=== PATIENT | male | born 1965 | race Caucasian/White ===

== ENCOUNTER 2016-10-06 03:20 | Inpatient (IN) | payer SELFPAY ==
[~2016-10-06] VITALS: Ht 193 cm; Wt 132.3 kg
[2016-10-06] VITALS (10 sets, daily range): BP systolic 138–160; BP diastolic 72–95; PULSE 74–88; RESP 16–20; TEMP 96.2–98.2; O2SAT 96–99
[~2016-10-06 03:20] MED LIST: ASPI325T PO; DICL75 PO; FLUO20TA20 PO; GLUC10TA3 PO; LISI-360 PO; LOPI600T PO; METF500 PO; NAPR250T57 PO; SUMA50TA2 PO; ULTR50TA PO
[2016-10-06] MEDS ORDERED: SODIUM CHLORIDE 0.9% FLUSH 10 ML FLUSH IVF PRN ×2 (03:45→05:15)
[2016-10-06] MEDS ORDERED: SODIUM CHLOR 0.9% 1000 ML INJ 1,000 ML IV SCH (03:45)
[2016-10-06 04:09] LABS: AUTOMATED NEUTROPHIL # 12.9 TH/MM3 (1.8-7.7); BASOPHIL % 0.3 % (0.0-2.0); EOSINOPHIL # 0.2 TH/MM3 (0-0.4); EOSINOPHIL % 1.4 % (0.0-4.0); HEMATOCRIT 36.5 % (39.0-51.0); HEMO FLAGS DIFF FINAL; LYMPH % 9.2 % (9.0-44.0); LYMPHOCYTE # 1.4 TH/MM3 (1.0-4.8); MEAN CELL VOLUME 86.3 FL (80.0-100.0); MEAN CORPUSCULAR HEMOGLOBIN 29.3 PG (27.0-34.0); NEUT % 83.1 % (16.0-70.0); PLATELET COUNT 420 TH/MM3 (150-450); RED BLOOD COUNT 4.24 MIL/MM3 (4.50-5.90); RED CELL DISTRIBUTION WIDTH 12.8 % (11.6-17.2); WHITE BLOOD COUNT 15.4 TH/MM3 (4.0-11.0)
[2016-10-06 04:20] LABS: CHLORIDE 105 MEQ/L (98-107); POTASSIUM 4.7 MEQ/L (3.5-5.1); SODIUM (NA) 138 MEQ/L (136-145)
[2016-10-06 04:23] LABS: ANION GAP 15 MEQ/L (5-15); BICARBONATE 18.4 MEQ/L (21.0-32.0); BLOOD UREA NITROGEN 81 MG/DL (7-18)
[2016-10-06 04:26] LABS: ALT (GPT) 30 U/L (12-78); AST (GOT) 20 U/L (15-37)
[2016-10-06 04:27] LABS: GLOMERULAR FILTRATION RATE 8 ML/MIN (>89)
[2016-10-06 04:28] LABS: TOTAL BILIRUBIN ADULT 0.7 MG/DL (0.2-1.0)
[2016-10-06 04:29] LABS: ALKALINE PHOSPHATASE 64 U/L (45-117)
[2016-10-06] MEDS ORDERED: ONDANSETRON HCL 4 MG/2 ML VIAL IV PUSH ONE (04:30)
[2016-10-06 04:37] LABS: BETA-HYDROXYBUTYRATE 0.11 MMOL/L (0.00-0.39)
[2016-10-06 04:40] LABS: GLUCOSE,URINE NEG (NEG); KETONE, URINE NEG (NEG); NITRITE,URINE NEG (NEG); PH, URINE 5.5 (5.0-8.5)
[2016-10-06 04:44] LABS: BLOOD, URINE MOD (NEG); URINE COLOR YELLOW (YELLW/STRAW)
[2016-10-06 04:45] LABS: COMMENT (UR) CULT NOT INDICATED; CULTURE IF INDICATED CULT NOT INDICATED; RBC, URINE 15-19 /hpf (0-3); SQUAMOUS EPITHELIAL CELL URINE 0-5 /hpf (0-5)
--- NOTE | 2016-10-06 05:24 | PD ---
HPI Chief Complaint: Diabetic Time Seen by Provider: 03:39 Travel History International Travel<30 days: No Contact w/Intl Traveler<30days: No Traveled to known affect area: No History of Present Illness HPI 51-year-old male presents to the emergency department by private transportation for complaint of episodes of hypoglycemia. Patient is diabetic and is prescribed glipizide. Patient states on Friday started having symptoms consistent with prior kidney stone history with nausea and vomiting. Patient states he has taken poor oral intake and poor dietary intake since Friday due to multiple episodes of vomiting. Patient states vomiting subsided on Friday so resume taking his medications on Friday. Patient states he took his first dose of glipizide on Friday and throughout the day noticed that he was having episodes of symptoms consistent with hypoglycemia and tried to force feed himself at the day but this evening just prior to arrival to the emergency department after eating a full meal at 1 AM noted that his blood sugar was again dropping with jitteriness and diaphoresis about himself to the emergency room for evaluation. No other concerns or complaints. Patient denies fever chills chest pain shortness of breath abdominal pain diarrhea dysuria joint pain swelling. Patient's nausea and vomiting have subsided. Patient's flank pain and urinary symptoms have resolved. Overall discomfort 5/10 in intensity. PFSH Past Medical History Narrative Medical Anxiety arthritis diabetes hypertension kidney stones states 2 renal failure chronic neck and back injury with right sided weakness chronically appendectomy tonsillectomy Hx Anticoagulant Therapy: Yes (ASPIRIN) Anxiety: Yes Cardiovascular Problems: Yes (HTN) Diabetes: Yes Patient Takes Glucophage: No Hypertension: Yes Medical other: Yes (r side weakness) Musculoskeletal: Yes (Neck sx, R arm carpal tunnel) Renal Failure: Yes (stage2) Tetanus Vaccination: Unknown Influenza Vaccination: Yes Past Surgical History Appendectomy: Yes Tonsillectomy: Yes Other Surgery: Yes (neck, shoulder) Social History Alcohol Use: No Tobacco Use: Yes (1 PPD) Substance Use: No Allergies-Medications (Allergen,Severity, Reaction): Coded Allergies: No Known Allergies (Unverified , 10/06/16) Reported Meds & Prescriptions Reported Meds & Active Scripts Active Reported [cholesterol pill] Sumatriptan (Sumatriptan Succinate) 50 Mg Tab 50 Mg PO ONCE PRN If a satisfactory response has not been obtained at 2 hours, a second dose may be administered Tramadol (Tramadol HCl) 50 Mg Tab 50 Mg PO Q6H PRN Lisinopril 10 Mg Tab 10 Mg PO DAILY Glipizide 10 Mg Tab 10 Mg PO BIDAC Take 30 minutes before a meal Fluoxetine (Fluoxetine HCl) 20 Mg Cap 40 Mg PO DAILY Narrative Medication states no longer taking metformin Review of Systems Except as stated in HPI: all other systems reviewed are Neg General / Constitutional: No: Fever, Chills HENT: No: Congestion Cardiovascular: No: Chest Pain or Discomfort Gastrointestinal: Positive: Nausea, Vomiting (Friday through Friday), Abdominal Pain (Friday through Friday), Loss of Appetite (Friday through Friday) Genitourinary: Positive: Flank Pain (Friday through Friday), No: Dysuria Musculoskeletal: No: Myalgias, Arthralgias Skin: No Rash Neurologic: No: Weakness, Dizziness Psychiatric: No: Anxiety Endocrine: No: Heat Intolerance Hematologic/Lymphatic: No: Easy Bruising Physical Exam Narrative GENERAL: Well-developed well-nourished obese male in no acute distress or respiratory distress SKIN: Warm and dry. HEAD: Normocephalic. EYES: No scleral icterus. No injection or drainage. NECK: Supple, trachea midline. No JVD or lymphadenopathy. CARDIOVASCULAR: Regular rate and rhythm without murmurs, gallops, or rubs. RESPIRATORY: Breath sounds equal bilaterally. No accessory muscle use. GASTROINTESTINAL: Abdomen soft, non-tender, nondistended. MUSCULOSKELETAL: No cyanosis, or edema. BACK: Nontender without obvious deformity. No CVA tenderness. Data Data Last Documented VS Vital Signs Date Time Temp Pulse Resp B/P Pulse Ox O2 Delivery O2 Flow Rate FiO2 10/06/16 04:32 80 20 158/73 96 Room Air 10/06/16 03:26 98.0 Orders Complete Blood Count With Diff (10/06/16 03:39) Comprehensive Metabolic Panel (10/06/16 03:39) Beta Hydroxybutyrate (Acetone) (10/06/16 03:39) Urinalysis - C+S If Indicated (10/06/16 03:39) Ecg Monitoring (10/06/16 03:39) Iv Access Insert/Monitor (10/06/16 03:39) Oximetry (10/06/16 03:39) NPO (10/06/16 03:39) Sodium Chloride 0.9% Flush (Ns Flush) (10/06/16 03:45) Sodium Chlor 0.9% 1000 Ml Inj (Ns 1000 M (10/06/16 03:45) Ondansetron Inj (Zofran Inj) (10/06/16 04:30) Admit Order (Ed Use Only) (10/06/16 ) ^ Saline Lock (10/06/16 05:13) Resp Oxygen Ziyad C Titrat 1-4 L (10/06/16 ) Notify Dr: Other (10/06/16 05:13) Sodium Chloride 0.9% Flush (Ns Flush) (10/06/16 09:00) Sodium Chloride 0.9% Flush (Ns Flush) (10/06/16 05:15) Labs Laboratory Tests Test 10/06/16 10/06/16 04:00 04:30 White Blood Count 15.4 TH/MM3 Red Blood Count 4.24 MIL/MM3 Hemoglobin 12.4 GM/DL Hematocrit 36.5 % Mean Corpuscular Volume 86.3 FL Mean Corpuscular Hemoglobin 29.3 PG Mean Corpuscular Hemoglobin 34.0 % Concent Red Cell Distribution Width 12.8 % Platelet Count 420 TH/MM3 Mean Platelet Volume 7.0 FL Neutrophils (%) (Auto) 83.1 % Lymphocytes (%) (Auto) 9.2 % Monocytes (%) (Auto) 6.0 % Eosinophils (%) (Auto) 1.4 % Basophils (%) (Auto) 0.3 % Neutrophils # (Auto) 12.9 TH/MM3 Lymphocytes # (Auto) 1.4 TH/MM3 Monocytes # (Auto) 0.9 TH/MM3 Eosinophils # (Auto) 0.2 TH/MM3 Basophils # (Auto) 0.0 TH/MM3 CBC Comment DIFF FINAL Differential Comment Sodium Level 138 MEQ/L Potassium Level 4.7 MEQ/L Chloride Level 105 MEQ/L Carbon Dioxide Level 18.4 MEQ/L Anion Gap 15 MEQ/L Blood Urea Nitrogen 81 MG/DL Creatinine 7.50 MG/DL Estimat Glomerular Filtration 8 ML/MIN Rate Random Glucose 60 MG/DL Calcium Level 8.5 MG/DL Total Bilirubin 0.7 MG/DL Aspartate Amino Transf 20 U/L (AST/SGOT) Alanine Aminotransferase 30 U/L (ALT/SGPT) Alkaline Phosphatase 64 U/L Total Protein 7.9 GM/DL Albumin 3.7 GM/DL B-Hydroxybutyrate 0.11 MMOL/L Urine Color YELLOW Urine Turbidity CLEAR Urine pH 5.5 Urine Specific [place] 1.012 Urine Protein TRACE mg/dL Urine Glucose (UA) NEG mg/dL Urine Ketones NEG mg/dL Urine Occult Blood MOD Urine Nitrite NEG Urine Bilirubin NEG Urine Leukocyte Esterase SMALL Urine RBC 15-19 /hpf Urine WBC 3-5 /hpf Urine Squamous Epithelial 0-5 /hpf Cells Urine Bacteria NONE /hpf Microscopic Urinalysis Comment CULT NOT INDICATED MDM Medical Decision Making Medical Screen Exam Complete: Yes Emergency Medical Condition: Yes Medical Record Reviewed: Yes Interpretation(s) CBC & BMP Diagram 10/06/16 04:00 Vital Signs Date Time Temp Pulse Resp B/P Pulse Ox O2 Delivery O2 Flow Rate FiO2 10/06/16 04:32 80 20 158/73 96 Room Air 10/06/16 03:30 Room Air 10/06/16 03:30 Room Air 10/06/16 03:26 98.0 83 20 138/72 99 Room Air Differential Diagnosis Hyperglycemia, adverse medication reaction/overdose, dehydration, electronic disturbance, UTI, acs Narrative Course Triage/bedside glucose 67; patient administered healthy choice meal; specimens collected and sent for resulting After eating meal patient complained of nausea Zofran 4 mg administered; IV fluids normal saline 1 25 cc per hour administered Labs resulted CBC is automated differential leukocytosis 15,000 with left shift mild anemia hemoglobin 12.2 Metabolic panel remarkable for renal failure BUN/creatinine 81/7.5 with bicarbonate of 18.6 and normal potassium; bhb 0.11, not elevated; urinalysis normal except for blood CT abdomen and pelvis and EKG ordered; patient's case discussed with on-call medicine for admission @ 5:20 post prandial BG 102 Patient reports feels clinically improved and aware of plan for admission; patient confirms multiple NSAIDs as part of routine medications. Physician Communication Physician Communication discussed with JANETH Reno--admit to Dr Hutchinson Diagnosis Primary Impression: Acute renal failure (ARF) Qualified Code: N17.9 - Acute renal failure, unspecified acute renal failure type Additional Impression: Hypoglycemia Admitting Information Admitting Physician Requests: Admit Cele Uriarte MD Oct 06, 2016 05:24
[2016-10-06] MEDS ORDERED: ACETAMINOPHEN 325 MG TAB PO PRN (05:45)
[2016-10-06] MEDS ORDERED: ONDANSETRON HCL 4 MG/2 ML VIAL IVP PRN (05:45)
[2016-10-06] MEDS ORDERED: SODIUM CHLORIDE 0.9% FLUSH 10 ML FLUSH IV FLUSH PRN (05:45)
[2016-10-06] MEDS ORDERED: FLUO20CA4 PO (05:59)
[2016-10-06] MEDS ORDERED: GLIP10TA6 PO (05:59)
[2016-10-06] MEDS ORDERED: SUMA50TA2 PO (05:59)
[2016-10-06] MEDS ORDERED: LISI10TA3 PO (05:59)
[2016-10-06] MEDS ORDERED: TRAM50TA PO (05:59)
[2016-10-06] MEDS ORDERED: cholesterol pill (05:59)
[2016-10-06] MEDS: SODIUM CHLOR 0.9% 1000 ML INJ 1,000 ML IV SCH ×2 (06:01→11:53)
--- NOTE | 2016-10-06 06:15 | RADHPO ---
EXAM DATE/TIME: 10/06/2016 05:41 [facility] COMPARISON: CT ABDOMEN & PELVIS W/O CONTRAST, October 16, 2015, 3:34. INDICATIONS : Abdomen pain with nausea and vomiting. ORAL CONTRAST: No oral contrast ingested. RADIATION DOSE: 27.95 CTDIvol (mGy) MEDICAL HISTORY : Hypertension. Renal calculi. Renal failure, acute. SURGICAL HISTORY : Appendectomy. ENCOUNTER: Initial ACUITY: 1 day PAIN SCALE: 5/10 LOCATION: Bilateral abdomen TECHNIQUE: Volumetric scanning of the abdomen and pelvis was performed. Using automated exposure control and ad justment of the mA and/or kV according to patient size, radiation dose was kept as low as reasonably achievable to obtain optimal diagnostic quality images. FINDINGS: LOWER LUNGS: The visualized lower lungs are clear. LIVER: Homogeneous density without lesion. There is no dilation of the biliary tree. No calcified gallston es. SPLEEN: Normal size without lesion. PANCREAS: Within normal limits. KIDNEYS: There is a 1.1 cm stone at the right renal pelvis at the UPJ. There are several smaller stones measur ing less than 5 mm at the inferior right collecting system. There is mild dilatation of the right col lecting system. There is a small 4 mm nonobstructing stone seen at the inferior left collecting syste m. The left collecting system and ureter are not dilated. However, there is a 8mm stone seen in the d istal left ureter just above the UVJ. ADRENAL GLANDS: Within normal limits. VASCULAR: There is no aortic aneurysm. BOWEL/MESENTERY: There scattered colonic diverticula without inflammatory change. ABDOMINAL WALL: Within normal limits. RETROPERITONEUM: There is no lymphadenopathy. BLADDER: No wall thickening or mass. REPRODUCTIVE: Within normal limits. INGUINAL: There is no lymphadenopathy or hernia. MUSCULOSKELETAL: There is degenerative change in lumbar spine. There appears to be possible pars defects at L5 with an terior spondylolisthesis of L5 on S1. This appearance is unchanged. There is a 1.7 cm sclerotic area seen at the right greater trochanter region. This is unchanged from the prior exam. The lack of woody e is suggestive of a benign condition such as a prominent bone island. CONCLUSION: 1. 1.1 cm stone at the right UPJ is a mild dilatation of the right collecting system. 2. 0.8 cm stone at the left distal ureter without dilatation of the left ureter or collecting system. 3. Bilateral nonobstructing renal stone seen in the collecting systems. 4. Scattered colonic diverticula. Jeffy Moreland MD on October 06, 2016 at 6:07 Board Certified Radiologist. This report was verified electronically.
[2016-10-06] MEDS: HEPARIN SODIUM - SQ 10,000 UNITS/ML VIAL SQ SCH ×2 (08:43→20:20)
[2016-10-06] MEDS: SODIUM CHLORIDE 0.9% FLUSH 10 ML FLUSH IV FLUSH SCH ×2 (08:43→20:20)
[2016-10-06] MEDS ORDERED: SODIUM CHLORIDE 0.9% FLUSH 10 ML FLUSH IV FLUSH SCH (09:00)
[2016-10-06 09:08] LABS: AUTOMATED NEUTROPHIL # 10.1 TH/MM3 (1.8-7.7); BASOPHIL % 0.3 % (0.0-2.0); EOSINOPHIL # 0.2 TH/MM3 (0-0.4); EOSINOPHIL % 1.4 % (0.0-4.0); HEMATOCRIT 31.9 % (39.0-51.0); HEMO FLAGS DIFF FINAL; LYMPH % 9.7 % (9.0-44.0); LYMPHOCYTE # 1.2 TH/MM3 (1.0-4.8); MEAN CELL VOLUME 85.4 FL (80.0-100.0); MEAN CORPUSCULAR HEMOGLOBIN 29.9 PG (27.0-34.0); MONO % 6.6 % (0.0-8.0); PLATELET COUNT 350 TH/MM3 (150-450); RED BLOOD COUNT 3.74 MIL/MM3 (4.50-5.90); RED CELL DISTRIBUTION WIDTH 12.9 % (11.6-17.2); WHITE BLOOD COUNT 12.3 TH/MM3 (4.0-11.0)
[2016-10-06 09:12] LABS: POTASSIUM 5.1 MEQ/L (3.5-5.1)
[2016-10-06 09:15] LABS: BICARBONATE 17.5 MEQ/L (21.0-32.0)
[2016-10-06] MEDS ORDERED: GLUCAGON 1 MG/ML VIAL OTHER PRN (10:45)
[2016-10-06] MEDS ORDERED: hydrALAZINE HCL 20 MG/ML VIAL IV PUSH PRN (10:45)
[2016-10-06] MEDS ORDERED: DEXTROSE 50% IN WATER 50 ML VIAL(D50) IV PUSH PRN (10:45)
[2016-10-06] MEDS: INSULIN NovoLIN REGULAR SUPPLEMENTAL SCALE SQ SCH ×3 (11:00→20:14)
[2016-10-06] MEDS: FLUoxetine HCL 20 MG CAP PO SCH (11:52)
--- NOTE | 2016-10-06 13:51 | MH ---
cc: JACKIE ALFREDO MD DATE OF ADMISSION: 10/06/2016 PRESENTING COMPLAINT: Hypoglycemia. HISTORY OF PRESENT ILLNESS: The patient is a 51-year-old gentleman with past medical history significant for diabetes, hypertension, chronic kidney disease stage II. The patient also has history of kidney stones in the past. The patient started having symptoms of renal colic. He started with nausea, vomiting, poor p.o. intake and because of these symptoms he did not take his Glipizide; however, his symptoms began to improve on Friday and starting Friday he started taking his Glipizide; however, later during the course of Friday, he had symptoms of hypoglycemia including jitteriness diaphoresis and despite trying to eat full meal he was unable to maintain his blood sugars and came into the ER for evaluation. In the emergency room the patient was found to have acute kidney injury. The patient's flank pain and urinary symptoms have resolved. His nausea and vomiting have subsided and the patient was admitted for further workup. PAST MEDICAL HISTORY: Past medical history is significant for: 1. Anxiety. 2. Arthritis. 3. Diabetes. 4. Hypertension. 5. Kidney stones. 6. Stage II chronic kidney disease. 7. Chronic neck pain. 8. Back injury with right-sided weakness. PAST SURGICAL HISTORY: Past surgical history significant for: 1. Appendectomy. 2. Tonsillectomy. 3. Neck and shoulder surgeries. SOCIAL HISTORY: The patient admits to smoking one pack per day of cigarettes. No history of alcohol or drug abuse. ALLERGIES: NO KNOWN DRUG ALLERGIES. MEDICATIONS AT HOME: 1. Sumatriptan PRN. 2. Tramadol 50 milligrams p.o. q. 6 hours PRN. 3. Lisinopril 10 milligrams p.o. daily. 4. Glipizide 10 milligrams p.o. twice a day. 5. Fluoxetine 20 milligrams. 6. 40 milligrams daily. REVIEW OF SYSTEMS: The patient at this point denies nausea, vomiting, any back pain. He does admit to loss of appetite. Otherwise review of systems in all fourteen systems and is negative. PHYSICAL EXAMINATION: VITAL SIGNS: On physical examination, his vital signs show a temperature of 98.0, pulse 88, respiratory rate of 20, systolic blood pressure 152, diastolic 75 and he is at 98% on room air. GENERAL PHYSICAL EXAMINATION: The patient is an obese gentleman sitting in a chair, does not appear to be in any acute distress. HEAD, EYES, EARS, NOSE, THROAT: Pupils equal, round and reactive to light and accommodation. Extraocular muscles intact. No scleral icterus. No conjunctival injection was noted. Oral mucosa is moist. NECK: The neck is supple. Nontender. No jugular venous distention. CARDIOVASCULAR: S1, S2 regular, no murmurs, rubs or gallops. RESPIRATORY EXAMINATION: Bilateral air entry. Clear to auscultation. No accessory muscle use. GI: Positive bowel sounds. Soft and nontender. EXTREMITIES: No cyanosis or clubbing. No edema. PERTINENT LAB INVESTIGATIONS: White blood cell count of 12.3, hemoglobin 11.2, hematocrit 31.9, platelet count of 350,000. Chemistries show sodium of 137, potassium 5.1, chloride 108, bicarbonate 17.5, anion gap of 12, BUN of 78, creatinine of 7.40. Glucose 71. Liver function tests were normal. Toxicology screen: Beta-hydroxybutyrate was 0.11. Urine was negative. IMAGING STUDIES: Imaging studies include a CT scan of the abdomen and pelvis which showed a 1.1 cm stone at the right UPJ and mild dilatation of the right collecting system and also showed a 0.8 cm stone in the left distal ureter without dilatation of the left collecting system. Also seen are bilateral nonobstructing renal stones in the collecting system, scattered colonic diverticula. DIAGNOSTIC IMPRESSION: 1. Hypoglycemia secondary to acute kidney injury. 2. Acute kidney injury. 3. Recent kidney stones. 4. History of diabetes. 5. Hypertension. 6. History of smoking and tobacco abuse. PLAN: 1. The patient is admitted to [facility]. 2. He is currently receiving IV fluids at 125 cc/hour. 3. The patient is passing good urine. 4. Will continue with pain control and monitoring of renal function. 5. There is no obstruction noted in the renal system. Will consult nephrology for further recommendations. 6. Will hold lisinopril for now. 7. Will add hydralazine for blood pressure control. 8. Will hold Glipizide. 9. Will continue with Accu-Cheks and insulin sliding scale as needed. 10. The patient was offered a nicotine patch but he refused. He is however requesting Ambien for sleep. 11. Will check serial electrolyte panels to monitor potassium. 12. Plan of care discussed with the patient and his at bedside. 13. Plan of care discussed with the nursing staff. Given the patient's acute kidney injury and potassium of 7.5, he is at risk of electrolyte abnormalities and of possibly developing arrhythmias. He will meet inpatient criteria and will be in the hospital for at least three midnights. MD GEENA Garrido/VARSHA /10:42 AM /1:37 PM
--- NOTE | 2016-10-06 18:17 | MB ---
cc: EDWIN WEST MD DATE OF CONSULTATION 10/06/2016 REASON FOR CONSULTATION Acute renal failure management. HISTORY OF PRESENT ILLNESS This is a 51-year-old male with a history of diabetes. The patient initially presented here with symptoms of hypoglycemia. He apparently had decreased p.o. intake for several days. When he checked his blood sugar at home he had a glucose in the 40s. He had been taking glipizide at home as well. The patient was brought here to the emergency room for further evaluation. He was given IV fluids and glipizide was held. The patient had evaluation of his chemistries here and he was found to have significant renal failure with a BUN and creatinine of 78 and 7.4. He had a potassium of 5.1. His previous creatinine here was approximately one year ago in September of 2015 and at that time he had a creatinine of 1.6. The patient reports having a long-term history of renal stones and feels like he is having right-sided renal colic at this time. He has never followed up with a urologist or mock up assembler before however, he has reported having multiple episodes of renal stones with ER visits to various hospitals in the past. He reports he was told by his PCP that he has CKD stage II. He denies any recent NSAID use. At this time he is resting in bed comfortably. He was started on IV fluids. He reports he is feeling somewhat better. However, he has ongoing right-sided colic pain. Throughout the course of the day he has made apparently 900 mL of urine output. REVIEW OF SYSTEMS The patient reports having decreased p.o. intake for several days. However has been able to tolerate p.o. fluids. No nausea. No vomiting. No diarrhea. No chest pains. No dizziness or loss of [id number]. No shortness of breath. The patient did have some fatigue he associated with hypoglycemia. Otherwise review of systems negative. PAST MEDICAL HISTORY Includes: 1. Anxiety. 2. Arthritis. 3. Diabetes. 4. Hypertension. 5. Renal stones. 6. Apparent stage II chronic kidney disease per visits with his primary care physician. His previous reflux esophagitis was 1.6 one year ago. 7. Chronic neck pains. 8. History of back pain with right-sided weakness. PAST SURGICAL HISTORY Includes: 1. Appendectomy. 2. Tonsillectomy. 3. Neck and shoulder surgeries. SOCIAL HISTORY The patient smokes one pack per day of tobacco daily. No alcohol or drug use. The patient lives at home with his mother. ALLERGIES NO KNOWN DRUG ALLERGIES. MEDICATIONS AT HOME Include: 1. Sumatriptan. 2. Tramadol. 3. Lisinopril. 4. Glipizide. 5. Fluoxetine. PHYSICAL EXAMINATION VITAL SIGNS: At the time of evaluation temperature 97.2, pulse 88, respiratory rate 16, blood pressure 159/88, pulse ox 98% on room air. GENERAL: Awake, alert, oriented, in no apparent distress. HEAD AND NECK: Neck soft supple. No lymphadenopathy. CARDIOVASCULAR: Regular rate and rhythm. No murmurs, rubs, gallops. LUNGS: Clear to auscultation bilaterally. ABDOMEN: Soft, obese, nontender, nondistended. EXTREMITIES: No edema. LABORATORY FINDINGS White count 12.3, hemoglobin 11.2, hematocrit 31.9 with platelet count 350. Sodium 137, potassium 5.1, chloride 108, bicarb 17.5, BUN 78, creatinine 7.4, glucose 71. Urinalysis with trace protein, moderate occult blood, small leukocyte esterase, 15-19 rbc's. No bacteria. ASSESSMENT AND PLAN 1. Acute kidney injury. The patient had a creatinine of 1.6 approximately 1 year ago. At this point he presents with significant renal failure. It is unclear if this is an obstructive component of renal failure secondary to be a renal stones versus possible volume depletion with decreased p.o. intake and colicky symptoms over several days, versus possible chronic kidney disease secondary to diabetes and chronic renal stones. At this point the patient is making urine and has had 900 mL of urine output over the last 24 hours. Imaging did revealed nonobstructive stones. The patient notes he does not feel like he has passed any stones yet, however, we will continue with aggressive fluids and see if this helps his symptoms. With dilatation of the collecting system, we will go ahead and start Flomax to see if this assists in the passage of stones. Continue to monitor at this point. We will also check a renal ultrasound to assess for any signs of chronic kidney disease. It is unclear if there is chronic at this point. If this is chronic kidney disease the patient may be approaching ESRD, however, it is unclear to tell. The 900 cc of urine output so far today is encouraging. We will further assess with a renal ultrasound to assess for any chronic kidney disease signs of echogenicity. Also we will check urine electrolytes. Regarding his stones, the patient has a strainer for urination and has been instructed to try to catch any stones for analysis. He reports a history of stones, but no significant workup. Once renal function stabilizes, further 24 hour urine studies for calcium, citrate, uric acid, oxalate may be considered with urological evaluation if needed. If renal ultrasound tomorrow reveals ongoing collecting system dilatation, further evaluation may be needed - continue to monitor. 2. Hypoglycemia. The patient presented with hypoglycemia and had a glucose in the 60s upon presentation here. This is secondary to taking Glipizide at home with poor p.o. intake. His sugars apparently have improved here. Continue to monitor at this time. 3. Acidosis. The patient with mild metabolic acidosis with bicarbonate 17, this is likely secondary to renal failure. Continue with IV fluids at this point with bicarbonate. 4. Diabetes. Continue to monitor glucose. 5. Hypertension. Continue to monitor at this point and continue with IV fluids. Of note avoid any NSAIDs. The patient had been on tramadol at home and continue to avoid any further nephrotoxic agents. Should the patient have little improvement in renal function over the next several days, dialysis may be a possible consideration however, his volume status is otherwise stable at this point and there is no acute need for any dialysis at this time. MD ROSA Barrientos/TOMÁS /5:26 PM /6:04 PM PROSPER
[2016-10-06] MEDS: TAMSULOSIN HCL 0.4 MG CAP PO SCH (18:21)
[2016-10-06] MEDS: SODIUM BICARBONATE 8.4% INJ 75 MEQ in SODIUM CHLOR 0.45% 1000 ML INJ 1,000 ML IV SCH (18:32)
[2016-10-06] MEDS ORDERED: ZOLPIDEM TARTRATE 5 MG TAB PO SCH (19:00)
[2016-10-06] MEDS ORDERED: ONDANSETRON HCL 4 MG/2 ML VIAL IV PUSH PRN (23:45)
[2016-10-07] VITALS: BP 134/71; PULSE 90; RESP 18; TEMP 97.1; O2SAT 96
[2016-10-07] MEDS: MENTHOL LOZENGE BUCCAL PRN ×4 (00:17→21:09)
[2016-10-07 04:00] VITALS: BP 123/65; PULSE 76; RESP 20; TEMP 97.1; O2SAT 97
[2016-10-07] MEDS: SODIUM BICARBONATE 8.4% INJ 75 MEQ in SODIUM CHLOR 0.45% 1000 ML INJ 1,000 ML IV SCH ×2 (05:47→16:46)
[2016-10-07 06:02] LABS: AUTOMATED NEUTROPHIL # 13.1 TH/MM3 (1.8-7.7); BASOPHIL # 0.1 TH/MM3 (0-0.2); BASOPHIL % 0.4 % (0.0-2.0); EOSINOPHIL % 0.3 % (0.0-4.0); HEMATOCRIT 35.5 % (39.0-51.0); HEMO FLAGS DIFF FINAL; LYMPH % 6.9 % (9.0-44.0); MEAN CELL VOLUME 86.1 FL (80.0-100.0); MEAN CORPUSCULAR HEMOGLOBIN 29.6 PG (27.0-34.0); MEAN CORPUSCULAR HGB CONC 34.3 % (32.0-36.0); MONO % 4.4 % (0.0-8.0); PLATELET COUNT 389 TH/MM3 (150-450); RED BLOOD COUNT 4.12 MIL/MM3 (4.50-5.90); RED CELL DISTRIBUTION WIDTH 12.8 % (11.6-17.2); WHITE BLOOD COUNT 14.9 TH/MM3 (4.0-11.0)
[2016-10-07] MEDS: INSULIN NovoLIN REGULAR SUPPLEMENTAL SCALE SQ SCH ×4 (06:19→20:58)
[2016-10-07 06:26] LABS: ALKALINE PHOSPHATASE 55 U/L (45-117); ALT (GPT) 25 U/L (12-78); ANION GAP 12 MEQ/L (5-15); AST (GOT) 15 U/L (15-37); BICARBONATE 20.5 MEQ/L (21.0-32.0); BLOOD UREA NITROGEN 75 MG/DL (7-18); CHLORIDE 105 MEQ/L (98-107); GLOMERULAR FILTRATION RATE 8 ML/MIN (>89); MAGNESIUM 1.8 MG/DL (1.5-2.5); POTASSIUM 5.9 MEQ/L (3.5-5.1); SODIUM (NA) 137 MEQ/L (136-145); TOTAL BILIRUBIN ADULT 0.6 MG/DL (0.2-1.0)
[2016-10-07 08:00] VITALS: BP 131/81; PULSE 90; RESP 22; TEMP 97; O2SAT 98
--- NOTE | 2016-10-07 08:21 | HHI.PR ---
Subjective History of Present Illness Patient c/o nausea/ vomiting on zofran added reglan d/w LANDY Carrington at bed side. nephrology input noted have hyperkalemia give 30 ml kayexalate PO. Review of Systems Constitutional Constitutional: Fatigue, Weakness GI/Abdomen GI/Abdominal Exam: Nausea, Vomiting Vitals/Results Intake & Output 10/06/16 10/06/16 10/07/16 15:00 23:00 07:00 Intake Total 1320 ml 450 ml Output Total 800 ml Balance 520 ml 450 ml Intake Oral 420 ml 450 ml IV Total 900 ml Output Urine Total 800 ml # Voids 2 # Bowel Movements 1 0 Vital Signs Vital Signs Date Time Temp Pulse Resp B/P Pulse Ox O2 Delivery O2 Flow Rate FiO2 10/07/16 04:00 97.1 76 20 123/65 97 10/07/16 00:00 97.1 90 18 134/71 96 10/06/16 20:00 98 21 10/06/16 20:00 79 10/06/16 20:00 98.2 83 18 146/95 97 10/06/16 16:00 97.2 84 16 160/80 98 10/06/16 12:00 97.2 88 16 159/88 98 10/06/16 10:30 74 CBC/BMP: 10/07/16 0509 10/07/16 0509 Lab Results Laboratory Tests Test 10/06/16 10/06/16 10/07/16 08:59 22:13 05:09 White Blood Count 12.3 TH/MM3 14.9 TH/MM3 Red Blood Count 3.74 MIL/MM3 4.12 MIL/MM3 Hemoglobin 11.2 GM/DL 12.2 GM/DL Hematocrit 31.9 % 35.5 % Mean Corpuscular Volume 85.4 FL 86.1 FL Mean Corpuscular Hemoglobin 29.9 PG 29.6 PG Mean Corpuscular Hemoglobin 35.0 % 34.3 % Concent Red Cell Distribution Width 12.9 % 12.8 % Platelet Count 350 TH/MM3 389 TH/MM3 Mean Platelet Volume 6.4 FL 7.3 FL Neutrophils (%) (Auto) 82.0 % 88.0 % Lymphocytes (%) (Auto) 9.7 % 6.9 % Monocytes (%) (Auto) 6.6 % 4.4 % Eosinophils (%) (Auto) 1.4 % 0.3 % Basophils (%) (Auto) 0.3 % 0.4 % Neutrophils # (Auto) 10.1 TH/MM3 13.1 TH/MM3 Lymphocytes # (Auto) 1.2 TH/MM3 1.0 TH/MM3 Monocytes # (Auto) 0.8 TH/MM3 0.7 TH/MM3 Eosinophils # (Auto) 0.2 TH/MM3 0.0 TH/MM3 Basophils # (Auto) 0.0 TH/MM3 0.1 TH/MM3 CBC Comment DIFF FINAL DIFF FINAL Differential Comment Sodium Level 137 MEQ/L 137 MEQ/L Potassium Level 5.1 MEQ/L 5.9 MEQ/L Chloride Level 108 MEQ/L 105 MEQ/L Carbon Dioxide Level 17.5 MEQ/L 20.5 MEQ/L Anion Gap 12 MEQ/L 12 MEQ/L Blood Urea Nitrogen 78 MG/DL 75 MG/DL Creatinine 7.40 MG/DL 7.50 MG/DL Estimat Glomerular Filtration 8 ML/MIN 8 ML/MIN Rate Random Glucose 71 MG/DL 110 MG/DL Calcium Level 8.2 MG/DL 8.8 MG/DL Uric Acid 8.9 MG/DL Phosphorus Level 4.2 MG/DL Magnesium Level 1.8 MG/DL Total Bilirubin 0.6 MG/DL Aspartate Amino Transf 15 U/L (AST/SGOT) Alanine Aminotransferase 25 U/L (ALT/SGPT) Alkaline Phosphatase 55 U/L Total Protein 7.4 GM/DL Albumin 3.3 GM/DL Physical Exam General General Appearance: Well Developed, Well Nourished, No Acute Distress, Comfortable Eyes Eye Exam: Pupils Equal, Pupils Reactive, Sclera White, Extraocular Movement Intact Throat Throat Exam: Oral Mucosa [place] & Moist, Oral Pharynx Normal Neck Neck Exam: Neck Supple Pulmonary Resp Exam: Clear Bilaterally, Breath Sounds Equal, No Distress Cardiology CV Exam: Regular, Normal Sinus Rhythm Gastrointestinal/Abdomen GI Exam: Soft, Non-Tender, Bowel Sounds Present Musculoskeletal MS Exam: Normal Tone Integumentary Skin Exam: Clear, Warm, Dry, Intact, Normal Turgor Extremeties Extremities Exam: No Edema Neurologic Neuro Exam: Alert, Awake, Oriented, Speech Clear, Moving All Extremities, No Focal Deficits PUD Prophylasis PUD Prophylaxis: Protonix Assessment/Plan Assessment/Plan DIAGNOSTIC IMPRESSION: 1. Hypoglycemia secondary to acute kidney injury. 2. Acute kidney injury...nephrology input noted getting renal ultrasound. 3. Recent kidney stones. 4. History of diabetes. 5. Hypertension. 6. History of smoking and tobacco abuse. 7. Hyperkemia..Give 30 ml Kayexalate PO X1 and check Potassium PLAN: He is currently receiving IV fluids at 125 cc/hour. The patient is passing good urine. Will continue with pain control and monitoring of renal function. There is no obstruction noted in the renal system. nephrology input noted for further recommendations. holding lisinopril for now. on hydralazine for blood pressure control. holding Glipizide. continue with Accu-Cheks and insulin sliding scale as needed. The patient was offered a nicotine patch but he refused. Ambien for sleep. Will check serial electrolyte panels to monitor potassium. Plan of care discussed with the nursing staff. Discussed Condition with: Patient Floyd Hutchinson MD Oct 07, 2016 08:21
--- NOTE | 2016-10-07 08:29 | RADHPO ---
EXAM DATE/TIME: 10/07/2016 07:55 [facility] COMPARISON: CT ABDOMEN & PELVIS W/O CONTRAST, October 06, 2016, 5:41. INDICATIONS : Increased Bun and Creatinine. MEDICAL HISTORY : Hypertension. Diabetic. CRF. Kidney stones. Back and neck injury with left side weakness. SURGICAL HISTORY : Appendectomy. Tonsillectomy. ENCOUNTER: Initial ACUITY: 1 day PAIN SCORE: 0/10 LOCATION: Bilateral flank MEASUREMENTS: RIGHT KIDNEY: 14.4 x 7.1 x 7.5 cm LEFT KIDNEY: 13.4 x 6.0 x 5.7 cm FINDINGS: RIGHT KIDNEY: The renal cortex is normal in thickness and echotexture. No mass is visualized. There is mild right h ydronephrosis similar to yesterday's CT examination. There is an echogenic non-shadowing structure in the lower pole collecting system measuring approximately 7 mm. This correlates with the stones ident ified on yesterday's CT. LEFT KIDNEY: Renal cortex is normal in thickness and echotexture. No hydronephrosis, stone, or mass. BLADDER: Within normal limits given the degree of distension. CONCLUSION: 1. Stable mild right hydronephrosis. Yesterday's CT scan documented a stone in the right proximal ure ter. 2. Nonobstructing right lower pole renal stone measuring approximately 7 mm. Jeffy Fountain MD on October 07, 2016 at 8:19 Board Certified Radiologist. This report was verified electronically.
[2016-10-07] MEDS ORDERED: SODIUM POLYSTYRENE SULFONATE SUSP 15 GM/60 ML CUP PO ONE (08:30)
[2016-10-07] MEDS: METOCLOPRAMIDE HCL 10 MG/2 ML VIAL IV PUSH SCH ×3 (08:45→20:55)
[2016-10-07] MEDS ORDERED: PNEUMOCOCCAL POLYVALENT INJ 25 MCG/0.5 ML SYR IM ONE (09:00)
[2016-10-07] MEDS: HEPARIN SODIUM - SQ 10,000 UNITS/ML VIAL SQ SCH ×2 (10:55→20:55)
[2016-10-07] MEDS: MORPHINE SULFATE 4 MG/ML INJ IV PRN ×3 (10:55→21:08)
[2016-10-07] MEDS: FLUoxetine HCL 20 MG CAP PO SCH (10:56)
[2016-10-07] MEDS: SODIUM CHLORIDE 0.9% FLUSH 10 ML FLUSH IV FLUSH SCH ×2 (10:56→20:42)
[2016-10-07 12:00] VITALS: BP 133/87; PULSE 90; RESP 20; TEMP 98.8; O2SAT 96
--- NOTE | 2016-10-07 14:00 | EKG ---
Date Performed: 10/06/2016 Time Performed: 06:01:58 PTAGE: 51 years EKG: Sinus rhythm with borderline 1st degree A-V block. Borderline ECG NO PREVIOUS TRACING DOCTOR: Andreia Gamboa Interpretating Date/Time 10/07/2016 13:58:57
--- NOTE | 2016-10-07 15:21 | HHI.NPPN ---
Subjective Renal Failure: Chronic, Acute, Stage III History of Present Illness 51-year-old male with a history of diabetes. The patient initially presented here with symptoms of hypoglycemia. He apparently had decreased p.o. intake for several days. When he checked his blood sugar at home he had a glucose in the 40s. He had been taking glipizide at home as well. The patient was brought here to the emergency room for further evaluation. Additional Remarks Patient is alert, no SOB, no abd. pain, has nausea. Review of Systems General Constitutional: Fatigue Gastrointestinal Gastrointestinal: Nausea & Vomiting Objective Data Data 10/06/16 10/07/16 19:00 07:00 Intake Total 900 ml 870 ml Output Total 800 ml Balance 900 ml 70 ml Intake Oral 870 ml IV Total 900 ml Output Urine Total 800 ml # Voids 2 # Bowel Movements 1 Vital Signs Date Time Temp Pulse Resp B/P Pulse Ox O2 Delivery O2 Flow Rate FiO2 10/07/16 12:00 98.8 90 20 133/87 96 10/07/16 11:13 18 10/07/16 08:00 97.0 90 22 131/81 98 10/07/16 04:00 97.1 76 20 123/65 97 10/07/16 00:00 97.1 90 18 134/71 96 10/06/16 20:00 98 21 10/06/16 20:00 79 10/06/16 20:00 98.2 83 18 146/95 97 10/06/16 16:00 97.2 84 16 160/80 98 -: 10/07/16 0509 10/07/16 0509 Physical Exam General Appearance: Well Nourished, No Acute Distress, Comfortable Eyes Eye Exam: Pupils Equal, Pupils Reactive, Sclera White, Extraocular Movement Intact Throat Throat Exam: Oral Mucosa [place] & Moist, Oral Pharynx Normal Neck Neck Exam: Neck Supple Pulmonary Resp Exam: Clear Bilaterally, Breath Sounds Equal, No Distress Cardiology CV Exam: Regular, Normal Sinus Rhythm Gastrointestinal/Abdomen GI Exam: Soft, Non-Tender, Bowel Sounds Present Musculoskeletal MS Exam: Normal Tone Integumentary Skin Exam: Clear, Warm, Dry, Intact, Normal Turgor Extremeties Extremities Exam: No Edema Neurologic Neuro Exam: Alert, Awake, Oriented, Speech Clear, Moving All Extremities, No Focal Deficits PUD Prophylasis PUD Prophylaxis: Protonix Assessment/Plan Assessment Summary: MOMO/Acute Renal Failure, CKD Stage III Electrolyte Assessment: Hyperkalemia, Metabolic Acidosis Problem List: (1) Hypoglycemia (2) Metabolic acidosis (3) Hyperkalemia (4) Stage 3 chronic kidney disease (5) Acute renal failure (ARF) Plan Patient has been non oliguric. Creatinine is still same. Renal U/S and CT abd. noted. Nee to rule out obs., will call Urology. Urine Na. was normal and Eosinophils negative. Will check CEDRIC,ANCA, SPEP, and CPK. K was elevated, and given Kayexalate. Continue IVF with NaHco3. Follow urine out put and BMP. Problem Qualifiers (1) Acute renal failure (ARF): Qualified Code: N17.9 - Acute renal failure, unspecified acute renal failure type Abe Vail MD Oct 07, 2016 15:21
[2016-10-07] MEDS: TAMSULOSIN HCL 0.4 MG CAP PO SCH (16:48)
[2016-10-07 20:00] VITALS: BP 112/77; PULSE 78; RESP 20; TEMP 97.4; O2SAT 100
[2016-10-07 20:05] VITALS: O2SAT 97
--- NOTE | 2016-10-07 22:32 | PD.CONS ---
HPI Service Urology Consult Requested By Reason for Consult Nephrolithiasis Primary Care Physician Javier Alcantara DO Diagnosis: History of Present Illness 51yo male with history of DM and nephrolithiasis admitted for ARF seen in consultation for bilateral nephrolithiasis. Patient reports decreased PO intake the last few days with general malaise. He was found to have a Cr over 7 in the ED with bilateral ureteral stones noted on CT scan. He has a right proximal ureteral stone as well as a left distal ureteral stone. Mild hydronephrosis noted bilaterally. Patient reports moderate bilateral flank pain that is relatively dull in the range of 4-5/10, no fevers. No hematuria. He has a history of multiple kidney stones, however he does not follow with a Urologist. Review of Systems ROS Limitations: Clinical Condition Constitutional: DENIES: Fever Endocrine: DENIES: Polydipsia Eyes: DENIES: Blurred vision Ears, nose, mouth, throat: DENIES: Hearing loss Respiratory: DENIES: Apneas, Cough Cardiovascular: DENIES: Chest pain Gastrointestinal: COMPLAINS OF: Abdominal pain, DENIES: Nausea, Vomiting Genitourinary: DENIES: Hematuria, Dysuria Musculoskeletal: COMPLAINS OF: Back pain, DENIES: Joint pain Integumentary: DENIES: Rash Hematologic/lymphatic: DENIES: Bruising Immunologic/allergic: DENIES: Eczema Neurologic: DENIES: Abnormal gait, Headache Psychiatric: DENIES: Anxiety Except as stated in HPI: all other systems reviewed are Neg Past Family Social History Past Medical History HTN DM CKD Nephrolithiasis Past Surgical History Tonsillectomy Appendectomy Reported Medications Reported Meds & Active Scripts Active Reported [cholesterol pill] Sumatriptan (Sumatriptan Succinate) 50 Mg Tab 50 Mg PO ONCE PRN If a satisfactory response has not been obtained at 2 hours, a second dose may be administered Tramadol (Tramadol HCl) 50 Mg Tab 50 Mg PO Q6H PRN Lisinopril 10 Mg Tab 10 Mg PO DAILY Glipizide 10 Mg Tab 10 Mg PO BIDAC Take 30 minutes before a meal Fluoxetine (Fluoxetine HCl) 20 Mg Cap 40 Mg PO DAILY Allergies: Coded Allergies: No Known Allergies (Unverified , 10/06/16) Active Ordered Medications Current Medications Medications (Trade) Dose Ordered Sig/Curtis Route Start Time Stop Time Status Last Admin (NS Flush) 2 ml UNSCH PRN IV FLUSH 10/06/16 05:45 (NS Flush) 2 ml BID IV FLUSH 10/06/16 09:00 10/07/16 10:56 (Tylenol) 650 mg Q4H PRN PO 10/06/16 05:45 (Zofran Inj) 4 mg Q6H PRN IVP 10/06/16 05:45 10/06/16 18:21 (Heparin Inj) 5,000 units Q12HR SQ 10/06/16 09:00 10/07/16 20:55 (D50w (Vial) Inj) 25 ml UNSCH PRN IV PUSH 10/06/16 10:45 (Glucagon Inj) 1 mg UNSCH PRN OTHER 10/06/16 10:45 (PROzac) 40 mg DAILY PO 10/06/16 11:00 10/07/16 10:56 (Apresoline Inj) 10 mg Q6H PRN IV PUSH 10/06/16 10:45 Tamsulosin HCl 0.4 mg 0.4 mg DAILY@18 PO 10/06/16 18:00 10/07/16 16:48 (Sodium Bicarbonate 8.4% Inj/1/2 NS 1000 ml Inj) 1,075 ml @ 100 mls/hr [id number] IV 10/06/16 18:00 10/07/16 16:46 (Zofran Inj) 4 mg Q4H PRN IV PUSH 10/06/16 23:45 10/07/16 12:27 ([place] Stephen) 1 lozenge Q2H PRN BUCCAL 10/06/16 23:45 10/07/16 21:09 (Morphine Inj) 2 mg Q4H PRN IV 10/06/16 23:45 10/07/16 21:08 (Reglan Inj) 5 mg Q8HR IV PUSH 10/07/16 08:45 10/07/16 20:55 Family History Family history reviewed and noncontributory to present illness Social History Positive tobacco Occasional ETOH Physical Exam Vital Signs Date Time Temp Pulse Resp B/P Pulse Ox O2 Delivery O2 Flow Rate FiO2 10/07/16 20:00 97.4 78 20 112/77 100 10/07/16 17:16 19 10/07/16 12:00 98.8 90 20 133/87 96 10/07/16 08:00 98 21 10/07/16 08:00 97.0 90 22 131/81 98 10/07/16 04:00 97.1 76 20 123/65 97 10/07/16 00:00 97.1 90 18 134/71 96 Physical Exam GENERAL: This is a well-nourished, well-developed patient, in no apparent distress. SKIN: No rashes, ecchymoses or lesions. Cool and dry. HEAD: Atraumatic. Normocephalic EYES: Extraocular motions intact. No scleral icterus. No injection or drainage. ENT: Nose without bleeding, purulent drainage. Airway patent. NECK: Trachea midline. No JVD or lymphadenopathy. CARDIOVASCULAR: Normal pulses RESPIRATORY: Nonlabored, equal chest rise GASTROINTESTINAL: Abdomen nondistended. MUSCULOSKELETAL: Extremities without clubbing, cyanosis, or edema. NEUROLOGICAL: Awake and alert. Motor and sensory grossly within normal limits Normal speech. Lab results reviewed: Yes Laboratory Tests Test 10/07/16 10/07/16 05:09 07:30 White Blood Count 14.9 Red Blood Count 4.12 Hemoglobin 12.2 Hematocrit 35.5 Mean Corpuscular Volume 86.1 Mean Corpuscular Hemoglobin 29.6 Mean Corpuscular Hemoglobin 34.3 Concent Red Cell Distribution Width 12.8 Platelet Count 389 Mean Platelet Volume 7.3 Neutrophils (%) (Auto) 88.0 Lymphocytes (%) (Auto) 6.9 Monocytes (%) (Auto) 4.4 Eosinophils (%) (Auto) 0.3 Basophils (%) (Auto) 0.4 Neutrophils # (Auto) 13.1 Lymphocytes # (Auto) 1.0 Monocytes # (Auto) 0.7 Eosinophils # (Auto) 0.0 Basophils # (Auto) 0.1 CBC Comment DIFF FINAL Differential Comment Sodium Level 137 Potassium Level 5.9 Chloride Level 105 Carbon Dioxide Level 20.5 Anion Gap 12 Blood Urea Nitrogen 75 Creatinine 7.50 Estimat Glomerular Filtration 8 Rate Random Glucose 110 Calcium Level 8.8 Phosphorus Level 4.2 Magnesium Level 1.8 Total Bilirubin 0.6 Aspartate Amino Transf 15 (AST/SGOT) Alanine Aminotransferase 25 (ALT/SGPT) Alkaline Phosphatase 55 Total Protein 7.4 Albumin 3.3 Urine Eosinophils NONE SEEN Result Diagram: 10/07/16 0509 10/07/16 0509 Personally reviewed images: Yes Imaging Last Impressions Renal Ultrasound 10/07/16 0000 Signed Impressions: Service Date/Time: Friday, October 07, 2016 07:55 - CONCLUSION: 1. Stable mild right hydronephrosis. Yesterday's CT scan documented a stone in the right proximal ureter. 2. Nonobstructing right lower pole renal stone measuring approximately 7 mm. Jeffy Fountain MD Abdomen/Pelvis CT 10/06/16 0000 Signed Impressions: Service Date/Time: Thursday, October 06, 2016 05:41 - CONCLUSION: 1. 1.1 cm stone at the right UPJ is a mild dilatation of the right collecting system. 2. 0.8 cm stone at the left distal ureter without dilatation of the left ureter or collecting system. 3. Bilateral nonobstructing renal stone seen in the collecting systems. 4. Scattered colonic diverticula. Jeffy Moreland MD Assessment and Plan Problem List: (1) Acute renal failure (ARF) ICD Code: N17.9 Status: Acute (2) Stage 3 chronic kidney disease ICD Code: N18.3 Status: Acute Assessment and Plan -CT scan reviewed with evidence of large right proximal ureteral stone approx 1cm in size with a left distal ureteral stone approx 8mm in size. Minimal hydronephrosis noted -Patient with ARF of Cr greater than 7. This could be due to obstruction from the stones or intrinsic renal failure given his history -Patient would likely benefit from bilateral ureteral stent placement to alleviate any obstruction -This was discuss with the patient who understands and agrees -Plan for bilateral ureteral stent placement tomorrow -NPO at midnight Problem Qualifiers (1) Acute renal failure (ARF): Qualified Code: N17.9 - Acute renal failure, unspecified acute renal failure type Bowen Blackwell MD Oct 07, 2016 22:32
[2016-10-08] VITALS: BP 144/80; PULSE 88; RESP 22; TEMP 97.5; O2SAT 96
[2016-10-08] MEDS: MORPHINE SULFATE 4 MG/ML INJ IV PRN ×3 (01:43→14:21)
[2016-10-08] MEDS ORDERED: LORazepam 2 MG/ML VIAL IV ONE (02:15)
[2016-10-08] MEDS: SODIUM BICARBONATE 8.4% INJ 75 MEQ in SODIUM CHLOR 0.45% 1000 ML INJ 1,000 ML IV SCH ×3 (02:16→22:18)
[2016-10-08 04:00] VITALS: BP 132/76; PULSE 78; RESP 18; TEMP 97.8; O2SAT 98
[2016-10-08 06:11] LABS: AUTOMATED NEUTROPHIL # 9.3 TH/MM3 (1.8-7.7); BASOPHIL # 0.1 TH/MM3 (0-0.2); BASOPHIL % 0.6 % (0.0-2.0); EOSINOPHIL # 0.1 TH/MM3 (0-0.4); EOSINOPHIL % 0.6 % (0.0-4.0); HEMATOCRIT 30.4 % (39.0-51.0); HEMO FLAGS DIFF FINAL; LYMPH % 9.3 % (9.0-44.0); LYMPHOCYTE # 1.1 TH/MM3 (1.0-4.8); MEAN CELL VOLUME 85.7 FL (80.0-100.0); MEAN CORPUSCULAR HEMOGLOBIN 28.9 PG (27.0-34.0); MEAN CORPUSCULAR HGB CONC 33.8 % (32.0-36.0); MONO % 6.5 % (0.0-8.0); PLATELET COUNT 352 TH/MM3 (150-450); RED BLOOD COUNT 3.54 MIL/MM3 (4.50-5.90); RED CELL DISTRIBUTION WIDTH 12.7 % (11.6-17.2); WHITE BLOOD COUNT 11.3 TH/MM3 (4.0-11.0)
[2016-10-08] MEDS: METOCLOPRAMIDE HCL 10 MG/2 ML VIAL IV PUSH SCH ×3 (06:13→22:00)
[2016-10-08] MEDS: INSULIN NovoLIN REGULAR SUPPLEMENTAL SCALE SQ SCH ×4 (06:17→21:30)
[2016-10-08 06:56] LABS: ALKALINE PHOSPHATASE 46 U/L (45-117); ALT (GPT) 20 U/L (12-78); ANION GAP 10 MEQ/L (5-15); AST (GOT) 11 U/L (15-37); BICARBONATE 24.9 MEQ/L (21.0-32.0); BLOOD UREA NITROGEN 78 MG/DL (7-18); CHLORIDE 106 MEQ/L (98-107); CREATINE KINASE 137 U/L (39-308); GLOMERULAR FILTRATION RATE 7 ML/MIN (>89); SODIUM (NA) 141 MEQ/L (136-145); TOTAL BILIRUBIN ADULT 0.4 MG/DL (0.2-1.0)
[2016-10-08 08:00] VITALS: O2SAT 95
--- NOTE | 2016-10-08 08:29 | HHI.PR ---
Subjective History of Present Illness Patient nausea and vomiting resolved. d/w LANDY Carrington at bed side. nephrology input noted.seen by urologist going for bilateral uretral stent. Review of Systems Constitutional Constitutional: Fatigue, Weakness GI/Abdomen GI/Abdominal Exam: Nausea, Vomiting Vitals/Results Intake & Output 10/07/16 10/07/16 10/08/16 15:00 23:00 07:00 Intake Total 725 ml 1680 ml 1150 ml Output Total 950 ml Balance -225 ml 1680 ml 1150 ml Intake Oral 725 ml 480 ml IV Total 1200 ml 1150 ml Output Urine Total 950 ml # Voids 2 1 1 # Bowel Movements 1 0 Vital Signs Vital Signs Date Time Temp Pulse Resp B/P Pulse Ox O2 Delivery O2 Flow Rate FiO2 10/08/16 04:00 97.8 78 18 132/76 98 10/08/16 01:48 16 10/08/16 00:00 97.5 88 22 144/80 96 10/07/16 20:05 97 21 10/07/16 20:00 97.4 78 20 112/77 100 10/07/16 20:00 78 10/07/16 12:00 98.8 90 20 133/87 96 CBC/BMP: 10/08/16 0550 10/08/16 0550 Lab Results Laboratory Tests Test 10/08/16 05:50 White Blood Count 11.3 TH/MM3 Red Blood Count 3.54 MIL/MM3 Hemoglobin 10.3 GM/DL Hematocrit 30.4 % Mean Corpuscular Volume 85.7 FL Mean Corpuscular Hemoglobin 28.9 PG Mean Corpuscular Hemoglobin 33.8 % Concent Red Cell Distribution Width 12.7 % Platelet Count 352 TH/MM3 Mean Platelet Volume 6.5 FL Neutrophils (%) (Auto) 83.0 % Lymphocytes (%) (Auto) 9.3 % Monocytes (%) (Auto) 6.5 % Eosinophils (%) (Auto) 0.6 % Basophils (%) (Auto) 0.6 % Neutrophils # (Auto) 9.3 TH/MM3 Lymphocytes # (Auto) 1.1 TH/MM3 Monocytes # (Auto) 0.7 TH/MM3 Eosinophils # (Auto) 0.1 TH/MM3 Basophils # (Auto) 0.1 TH/MM3 CBC Comment DIFF FINAL Differential Comment Sodium Level 141 MEQ/L Potassium Level 5.0 MEQ/L Chloride Level 106 MEQ/L Carbon Dioxide Level 24.9 MEQ/L Anion Gap 10 MEQ/L Blood Urea Nitrogen 78 MG/DL Creatinine 8.10 MG/DL Estimat Glomerular Filtration 7 ML/MIN Rate Random Glucose 91 MG/DL Calcium Level 8.3 MG/DL Total Bilirubin 0.4 MG/DL Aspartate Amino Transf 11 U/L (AST/SGOT) Alanine Aminotransferase 20 U/L (ALT/SGPT) Alkaline Phosphatase 46 U/L Total Creatine Kinase 137 U/L Total Protein 6.7 GM/DL Albumin 3.0 GM/DL Physical Exam General General Appearance: Well Nourished, No Acute Distress, Comfortable Eyes Eye Exam: Pupils Equal, Pupils Reactive, Sclera White, Extraocular Movement Intact Throat Throat Exam: Oral Mucosa [place] & Moist, Oral Pharynx Normal Neck Neck Exam: Neck Supple Pulmonary Resp Exam: Clear Bilaterally, Breath Sounds Equal, No Distress Cardiology CV Exam: Regular, Normal Sinus Rhythm Gastrointestinal/Abdomen GI Exam: Soft, Non-Tender, Bowel Sounds Present Musculoskeletal MS Exam: Normal Tone Integumentary Skin Exam: Clear, Warm, Dry, Intact, Normal Turgor Extremeties Extremities Exam: No Edema Neurologic Neuro Exam: Alert, Awake, Oriented, Speech Clear, Moving All Extremities, No Focal Deficits PUD Prophylasis PUD Prophylaxis: Protonix Assessment/Plan Assessment/Plan DIAGNOSTIC IMPRESSION: 1. Hypoglycemia secondary to acute kidney injury. 2. Acute kidney injury...nephrology input noted getting renal ultrasound... Urine Na. was normal and Eosinophils negative. CEDRIC,ANCA, SPEP are pending and CPK is normal. 3. Recent kidney stones...seen by urologist going for bilateral uretral stent. 4. History of diabetes. 5. Hypertension. 6. History of smoking and tobacco abuse. 7. Hyperkemia..resolved. PLAN: He is currently receiving IV fluids at 125 cc/hour. The patient is passing good urine. Will continue with pain control and monitoring of renal function. There is no obstruction noted in the renal system. nephrology input noted for further recommendations. holding lisinopril for now. on hydralazine for blood pressure control. holding Glipizide. continue with Accu-Cheks and insulin sliding scale as needed. The patient was offered a nicotine patch but he refused. Ambien for sleep. seen by urologist going for bilateral uretral stent. Will check serial electrolyte panels to monitor potassium. Plan of care discussed with the nursing staff. Discussed Condition with: Patient Floyd Hutchinson MD Oct 08, 2016 08:29
[2016-10-08] MEDS: SODIUM CHLORIDE 0.9% FLUSH 10 ML FLUSH IV FLUSH SCH ×2 (09:00→21:30)
--- NOTE | 2016-10-08 09:13 | HHI.PR ---
Subjective Patient symptoms today Patient with bilateral nephrolithiasis. Plan for bilateral ureteral stent placement today Patient would require transfer to [facility] for planned procedure to be done around 5-6pm today. NPO Objective Vital Signs Vital Signs Date Time Temp Pulse Resp B/P Pulse Ox O2 Delivery O2 Flow Rate FiO2 10/08/16 04:00 97.8 78 18 132/76 98 10/08/16 01:48 16 10/08/16 00:00 97.5 88 22 144/80 96 10/07/16 20:05 97 21 10/07/16 20:00 97.4 78 20 112/77 100 10/07/16 20:00 78 10/07/16 12:00 98.8 90 20 133/87 96 Intake & Output 10/08/16 10/08/16 07:00 19:00 Intake Total 1630 ml Balance 1630 ml Intake Oral 480 ml IV Total 1150 ml # Voids 2 # Bowel Movements 0 Result Diagram: 10/08/16 0550 10/08/16 0550 Medications and IVs Current Medications Medications (Trade) Dose Ordered Sig/Curtis Route Start Time Stop Time Status Last Admin (NS Flush) 2 ml UNSCH PRN IV FLUSH 10/06/16 05:45 (NS Flush) 2 ml BID IV FLUSH 10/06/16 09:00 10/07/16 10:56 (Tylenol) 650 mg Q4H PRN PO 10/06/16 05:45 (Zofran Inj) 4 mg Q6H PRN IVP 10/06/16 05:45 10/06/16 18:21 (Heparin Inj) 5,000 units Q12HR SQ 10/06/16 09:00 10/07/16 20:55 (D50w (Vial) Inj) 25 ml UNSCH PRN IV PUSH 10/06/16 10:45 (Glucagon Inj) 1 mg UNSCH PRN OTHER 10/06/16 10:45 (PROzac) 40 mg DAILY PO 10/06/16 11:00 10/07/16 10:56 (Apresoline Inj) 10 mg Q6H PRN IV PUSH 10/06/16 10:45 Tamsulosin HCl 0.4 mg 0.4 mg DAILY@18 PO 10/06/16 18:00 10/07/16 16:48 (Sodium Bicarbonate 8.4% Inj/1/2 NS 1000 ml Inj) 1,075 ml @ 100 mls/hr [id number] IV 10/06/16 18:00 10/08/16 02:16 (Zofran Inj) 4 mg Q4H PRN IV PUSH 10/06/16 23:45 10/07/16 12:27 ([place] Stephen) 1 lozenge Q2H PRN BUCCAL 10/06/16 23:45 10/07/16 21:09 (Morphine Inj) 2 mg Q4H PRN IV 10/06/16 23:45 10/08/16 01:43 (Reglan Inj) 5 mg Q8HR IV PUSH 10/07/16 08:45 10/08/16 06:13 Assessment and Plan Problem List: (1) Acute renal failure (ARF) ICD Code: N17.9 Status: Acute (2) Stage 3 chronic kidney disease ICD Code: N18.3 Status: Acute Assessment and Plan Problem Qualifiers (1) Acute renal failure (ARF): Qualified Code: N17.9 - Acute renal failure, unspecified acute renal failure type Bowen Blackwell MD Oct 08, 2016 09:13
[2016-10-08 09:15] VITALS: BP 121/75; PULSE 79; RESP 18; TEMP 99.1; O2SAT 96
[2016-10-08 09:27] LABS: TOTAL PROTEIN SPE 6.7 GM/DL (6.0-7.6)
[2016-10-08] MEDS ORDERED: PROPOFOL 200 MG/20 ML AMP IV ONE (09:38)
[2016-10-08] MEDS ORDERED: NEOSTIGMINE METHYLSULFATE 10 MG/10 ML VIAL IV PUSH ONE (09:38)
[2016-10-08] MEDS ORDERED: ONDANSETRON HCL 4 MG/2 ML VIAL IV PUSH ONE (09:38)
[2016-10-08] MEDS ORDERED: PHENYLEPH/NS 1000 MCG/10 ML SYR IV ONE (09:38)
[2016-10-08] MEDS: HEPARIN SODIUM - SQ 10,000 UNITS/ML VIAL SQ SCH ×2 (09:52→21:00)
[2016-10-08] MEDS: FLUoxetine HCL 20 MG CAP PO SCH (09:52)
[2016-10-08 12:17] VITALS: BP 130/63; PULSE 73; RESP 16; TEMP 98.7; O2SAT 97
--- NOTE | 2016-10-08 16:03 | HHI.NPPN ---
Subjective Renal Failure: Chronic, Acute, Stage III History of Present Illness 51-year-old male with a history of diabetes. The patient initially presented here with symptoms of hypoglycemia. He apparently had decreased p.o. intake for several days. When he checked his blood sugar at home he had a glucose in the 40s. He had been taking glipizide at home as well. The patient was brought here to the emergency room for further evaluation. Additional Remarks Patient is alert, no SOB, no abd. pain, now NPO for the surgery. Review of Systems General Constitutional: Fatigue Gastrointestinal Gastrointestinal: Nausea & Vomiting Objective Data Data 10/07/16 10/08/16 19:00 07:00 Intake Total 1925 ml 1630 ml Output Total 950 ml Balance 975 ml 1630 ml Intake Oral 725 ml 480 ml IV Total 1200 ml 1150 ml Output Urine Total 950 ml # Voids 2 2 # Bowel Movements 1 0 Vital Signs Date Time Temp Pulse Resp B/P Pulse Ox O2 Delivery O2 Flow Rate FiO2 10/08/16 14:31 18 10/08/16 12:17 98.7 73 16 130/63 97 10/08/16 09:15 99.1 79 18 121/75 96 10/08/16 08:00 95 21 10/08/16 04:00 97.8 78 18 132/76 98 10/08/16 00:00 97.5 88 22 144/80 96 10/07/16 20:05 97 21 10/07/16 20:00 97.4 78 20 112/77 100 10/07/16 20:00 78 -: 10/08/16 0550 10/08/16 0550 Physical Exam General Appearance: Well Nourished, No Acute Distress, Comfortable Eyes Eye Exam: Pupils Equal, Pupils Reactive, Sclera White, Extraocular Movement Intact Throat Throat Exam: Oral Mucosa [place] & Moist, Oral Pharynx Normal Neck Neck Exam: Neck Supple Pulmonary Resp Exam: Clear Bilaterally, Breath Sounds Equal, No Distress Cardiology CV Exam: Regular, Normal Sinus Rhythm Gastrointestinal/Abdomen GI Exam: Soft, Non-Tender, Bowel Sounds Present Musculoskeletal MS Exam: Normal Tone Integumentary Skin Exam: Clear, Warm, Dry, Intact, Normal Turgor Extremeties Extremities Exam: No Edema Neurologic Neuro Exam: Alert, Awake, Oriented, Speech Clear, Moving All Extremities, No Focal Deficits PUD Prophylasis PUD Prophylaxis: Protonix Assessment/Plan Assessment Summary: MOMO/Acute Renal Failure, CKD Stage III Electrolyte Assessment: Hyperkalemia, Metabolic Acidosis Problem List: (1) Hypoglycemia (2) Metabolic acidosis (3) Hyperkalemia (4) Stage 3 chronic kidney disease (5) Acute renal failure (ARF) Plan Patient has been non oliguric. Creatinine is still same. Renal U/S and CT abd. noted. Nee to rule out obs., will call Urology. Urine Na. was normal and Eosinophils negative. CEDRIC,ANCA, SPEP are pending and CPK is normal. K is better, seen by urology, for bilateral uretral stent. Follow urine out put and BMP. If no improvement, possible HD. D/W the patient and the . Problem Qualifiers (1) Acute renal failure (ARF): Qualified Code: N17.9 - Acute renal failure, unspecified acute renal failure type Abe Vail MD Oct 08, 2016 16:03
[2016-10-08] MEDS: TAMSULOSIN HCL 0.4 MG CAP PO SCH (18:00)
[2016-10-08] MEDS ORDERED: DIMETHICONE/OXYBENZONE/PADMIATE LIP BALM 4.25 GM TOPICAL ONE (19:01)
[2016-10-08] MEDS ORDERED: PADIMATE (CHAPSTICK) 4.5 GM TUBE TOPICAL SCH (20:00)
[2016-10-08] MEDS ORDERED: fentaNYL CITRATE 250 MCG/5 ML AMP ONE (20:47)
[2016-10-08] MEDS ORDERED: IOHEXOL 350 MG/ML 50 ML BTL (for RAD DIAG) OTHER ONE (21:02)
--- NOTE | 2016-10-08 21:28 | HHI.PR ---
Subjective Patient symptoms today Successful placement of bilateral ureteral stents. Dark fluid noted to come from the right ureteral orfice upon placement of the stent. -Continue to monitor Cr and UOP -Will follow Objective Vital Signs Vital Signs Date Time Temp Pulse Resp B/P Pulse Ox O2 Delivery O2 Flow Rate FiO2 10/08/16 15:57 98.2 83 16 153/82 93 10/08/16 14:31 18 10/08/16 12:17 98.7 73 16 130/63 97 10/08/16 09:15 99.1 79 18 121/75 96 10/08/16 08:00 95 21 10/08/16 04:00 97.8 78 18 132/76 98 10/08/16 00:00 97.5 88 22 144/80 96 Intake & Output 10/08/16 10/08/16 07:00 19:00 Intake Total 1630 ml 0 ml Output Total 2 ml Balance 1630 ml -2 ml Intake Oral 480 ml 0 ml IV Total 1150 ml Output Urine Total 2 ml # Voids 2 # Bowel Movements 0 Result Diagram: 10/08/16 0550 10/08/16 0550 Medications and IVs Current Medications Medications (Trade) Dose Ordered Sig/Curtis Route Start Time Stop Time Status Last Admin (NS Flush) 2 ml UNSCH PRN IV FLUSH 10/06/16 05:45 (NS Flush) 2 ml BID IV FLUSH 10/06/16 09:00 10/07/16 10:56 (Tylenol) 650 mg Q4H PRN PO 10/06/16 05:45 (Zofran Inj) 4 mg Q6H PRN IVP 10/06/16 05:45 10/06/16 18:21 (Heparin Inj) 5,000 units Q12HR SQ 10/06/16 09:00 10/08/16 09:52 (D50w (Vial) Inj) 25 ml UNSCH PRN IV PUSH 10/06/16 10:45 (Glucagon Inj) 1 mg UNSCH PRN OTHER 10/06/16 10:45 (PROzac) 40 mg DAILY PO 10/06/16 11:00 10/08/16 09:52 (Apresoline Inj) 10 mg Q6H PRN IV PUSH 10/06/16 10:45 Tamsulosin HCl 0.4 mg 0.4 mg DAILY@18 PO 10/06/16 18:00 10/07/16 16:48 (Sodium Bicarbonate 8.4% Inj//2 NS 1000 ml Inj) 1,075 ml @ 100 mls/hr [id number] IV 10/06/16 18:00 10/08/16 13:21 (Zofran Inj) 4 mg Q4H PRN IV PUSH 10/06/16 23:45 10/07/16 12:27 ([place] Stephen) 1 lozenge Q2H PRN BUCCAL 10/06/16 23:45 10/07/16 21:09 (Morphine Inj) 2 mg Q4H PRN IV 10/06/16 23:45 10/08/16 14:21 (Reglan Inj) 5 mg Q8HR IV PUSH 10/07/16 08:45 10/08/16 13:17 ([place]) 1 applic UNSCH TOPICAL 10/08/16 20:00 Assessment and Plan Problem List: (1) Acute renal failure (ARF) ICD Code: N17.9 Status: Acute (2) Stage 3 chronic kidney disease ICD Code: N18.3 Status: Acute Assessment and Plan Problem Qualifiers (1) Acute renal failure (ARF): Qualified Code: N17.9 - Acute renal failure, unspecified acute renal failure type Bowen Blackwell MD Oct 08, 2016 21:28
[2016-10-09] VITALS: BP 129/72; PULSE 76; RESP 20; TEMP 97.6; O2SAT 96
[2016-10-09 00:27] VITALS: PULSE 80
[2016-10-09 04:00] VITALS: BP 111/63; PULSE 79; RESP 20; TEMP 98.1; O2SAT 96
[2016-10-09] MEDS: METOCLOPRAMIDE HCL 10 MG/2 ML VIAL IV PUSH SCH ×2 (05:35→14:20)
[2016-10-09] MEDS: INSULIN NovoLIN REGULAR SUPPLEMENTAL SCALE SQ SCH ×2 (05:39→11:00)
--- NOTE | 2016-10-09 07:24 | MP ---
cc: ANSLEY MONTANO MD DATE OF OPERATION October 08, 2016 PREOPERATIVE DIAGNOSIS Bilateral nephrolithiasis. POSTOPERATIVE DIAGNOSIS Bilateral nephrolithiasis. SURGEON Rajendra Montano MD PROCEDURE PERFORMED 1. Cystoscopy. 2. Bilateral ureteral stent placement. 3. Bilateral intraoperative pyelogram. 4. Interpretation of radiographic images. Interpretation of radiographic images: 1. No obvious evidence of bilateral hydronephrosis noted. 2. Successful placement of bilateral ureteral stents with good curl in the renal pelvis as well as in the bladder. PERTINENT FINDINGS 1. Significant debris and dark fluid noted from the right collecting system upon placement of the right ureteral stent. 2. Some fluid was noted from the left collecting system, however, this did not appear as dark as the right side. 3. Successful placement of a 6 x 26 double-J bilateral ureteral stents. HISTORY OF PRESENT ILLNESS Owen Vegas is a 51-year-old male who was found to have bilateral nephrolithiasis with persistently elevated creatinine who presents today for placed of bilateral ureteral stents. PROCEDURE IN DETAIL After proper informed consents were obtained, the patient left the operating room and remained supine on the table. The patient was placed under general anesthesia. The patient was placed in lithotomy position, prepped and draped in standard sterile fashion. After proper time-out was completed, a rigid cystoscope was inserted through the urethra into the bladder. The urethral mucosa was within normal limits with no abnormality. No lesion was identified. Upon entering the bladder, bilateral ureteral orifices were identified. There was no efflux coming from the right ureteral orifice. However, peristalsis was noted. At this point a wire was placed at the right collecting system, advanced up to the right renal pelvis. Upon placement of the wire, significant dark fluid was noted from the right collecting system. At this point a stent was placed, 6 x 26, after retrograde was completed to confirm the presence of the right renal pelvis. There was a good curl in the right renal pelvis as well as in the bladder after placement of the stent. Of note, continued dark fluid was noted to be coming from the right collecting system after successful placement of the stent. At this point, the patient was then turned to the left ureteral orifice. This was then cannulated with a guidewire and a 5-[place] open-ended catheter was placed with retrograde completed with no significant evidence of hydronephrosis. Fluid was also noted to be coming out of the left collecting system upon placement of the stent. However, this did not appear to be as dark as the right side. Successful placement of a 6 x 26 double-J ureteral stent was then successfully placed on the left collecting system with a good curl in the renal pelvis as well as in the bladder. At this point the patient's bladder was irrigated and all fluid was removed. The scope was removed and the patient tolerated the procedure well, without complication. DISPOSITION The patient will be transferred to the floor with continued observation. His creatinine will continue to be observed. Kiel Dong/EVAN /9:26 PM /7:01 AM MTDD
[2016-10-09] MEDS: HEPARIN SODIUM - SQ 10,000 UNITS/ML VIAL SQ SCH (07:27)
[2016-10-09] MEDS: FLUoxetine HCL 20 MG CAP PO SCH (07:46)
[2016-10-09] MEDS: SODIUM CHLORIDE 0.9% FLUSH 10 ML FLUSH IV FLUSH SCH (07:46)
[2016-10-09 08:00] VITALS: BP 116/76; PULSE 87; RESP 14; TEMP 95.4; O2SAT 95
--- NOTE | 2016-10-09 08:18 | HHI.PR ---
Subjective History of Present Illness Patient nausea and vomiting resolved. d/w LANDY Carrington at bed side. nephrology input noted.seen by urologist s/p bilateral uretral stent. RN Called me and told me that patient wants to Leave AMA which he did. Review of Systems Constitutional Constitutional: Fatigue, Weakness GI/Abdomen GI/Abdominal Exam: Nausea, Vomiting Vitals/Results Intake & Output 10/08/16 10/08/16 10/09/16 15:00 23:00 07:00 Intake Total 0 ml 200 ml 1155 ml Output Total 2 ml 2 ml 2300 ml Balance -2 ml 198 ml -1145 ml Intake Oral 0 ml 600 ml IV Total 555 ml Other 200 ml Output Urine Total 2 ml 2300 ml Estimated Blood Loss 2 ml # Bowel Movements 0 Vital Signs Vital Signs Date Time Temp Pulse Resp B/P Pulse Ox O2 Delivery O2 Flow Rate FiO2 10/09/16 04:00 98.1 79 20 111/63 96 10/09/16 00:27 80 10/09/16 00:00 97.6 76 20 129/72 96 10/08/16 22:15 98.2 88 16 94 Nasal Cannula 4 10/08/16 22:00 84 16 154/84 95 Nasal Cannula 4 10/08/16 21:45 86 16 153/78 95 Nasal Cannula 4 10/08/16 21:30 98.4 88 21 165/84 97 Nasal Cannula 4 10/08/16 15:57 98.2 83 16 153/82 93 10/08/16 14:31 18 10/08/16 12:17 98.7 73 16 130/63 97 10/08/16 09:15 99.1 79 18 121/75 96 CBC/BMP: 10/08/16 0550 10/08/16 0550 Physical Exam General General Appearance: Well Nourished, No Acute Distress, Comfortable Eyes Eye Exam: Pupils Equal, Pupils Reactive, Sclera White, Extraocular Movement Intact Throat Throat Exam: Oral Mucosa [place] & Moist, Oral Pharynx Normal Neck Neck Exam: Neck Supple Pulmonary Resp Exam: Clear Bilaterally, Breath Sounds Equal, No Distress Cardiology CV Exam: Regular, Normal Sinus Rhythm Gastrointestinal/Abdomen GI Exam: Soft, Non-Tender, Bowel Sounds Present Musculoskeletal MS Exam: Normal Tone Integumentary Skin Exam: Clear, Warm, Dry, Intact, Normal Turgor Extremeties Extremities Exam: No Edema Neurologic Neuro Exam: Alert, Awake, Oriented, Speech Clear, Moving All Extremities, No Focal Deficits PUD Prophylasis PUD Prophylaxis: Protonix Assessment/Plan Assessment/Plan DIAGNOSTIC IMPRESSION: 1. Hypoglycemia secondary to acute kidney injury. 2. Acute kidney injury...nephrology input noted getting renal ultrasound... Urine Na. was normal and Eosinophils negative. CEDRIC,ANCA, SPEP are pending and CPK is normal. 3. Recent kidney stones...seen by urologist s/p bilateral uretral stent. 4. History of diabetes. 5. Hypertension. 6. History of smoking and tobacco abuse. 7. Hyperkemia..resolved. PLAN: He is currently receiving IV fluids at 125 cc/hour. The patient is passing good urine. Will continue with pain control and monitoring of renal function. There is no obstruction noted in the renal system. nephrology input noted for further recommendations. holding lisinopril for now. on hydralazine for blood pressure control. holding Glipizide. continue with Accu-Cheks and insulin sliding scale as needed. The patient was offered a nicotine patch but he refused. Ambien for sleep. seen by urologist going for bilateral uretral stent. Will check serial electrolyte panels to monitor potassium. Plan of care discussed with the nursing staff. RN Called me and told me that patient wants to Leave AMA which he did. Discussed Condition with: Patient Floyd Hutchinson MD Oct 09, 2016 08:18
[2016-10-09 08:37] LABS: AUTOMATED NEUTROPHIL # 10.3 TH/MM3 (1.8-7.7); BASOPHIL # 0.1 TH/MM3 (0-0.2); BASOPHIL % 0.5 % (0.0-2.0); EOSINOPHIL # 0.1 TH/MM3 (0-0.4); EOSINOPHIL % 0.7 % (0.0-4.0); HEMATOCRIT 33.9 % (39.0-51.0); HEMO FLAGS DIFF FINAL; LYMPH % 10.8 % (9.0-44.0); LYMPHOCYTE # 1.4 TH/MM3 (1.0-4.8); MEAN CELL VOLUME 87.1 FL (80.0-100.0); MEAN CORPUSCULAR HEMOGLOBIN 29.3 PG (27.0-34.0); MEAN CORPUSCULAR HGB CONC 33.6 % (32.0-36.0); PLATELET COUNT 402 TH/MM3 (150-450); RED BLOOD COUNT 3.89 MIL/MM3 (4.50-5.90); RED CELL DISTRIBUTION WIDTH 13.6 % (11.6-17.2); WHITE BLOOD COUNT 12.5 TH/MM3 (4.0-11.0)
[2016-10-09 08:43] LABS: ALKALINE PHOSPHATASE 51 U/L (45-117); ALT (GPT) 19 U/L (12-78); ANION GAP 11 MEQ/L (5-15); AST (GOT) 16 U/L (15-37); BICARBONATE 21.2 MEQ/L (21.0-32.0); BLOOD UREA NITROGEN 65 MG/DL (7-18); CHLORIDE 105 MEQ/L (98-107); GLOMERULAR FILTRATION RATE 10 ML/MIN (>89); POTASSIUM 4.7 MEQ/L (3.5-5.1); SODIUM (NA) 137 MEQ/L (136-145); TOTAL BILIRUBIN ADULT 0.4 MG/DL (0.2-1.0)
[2016-10-09] MEDS: SODIUM BICARBONATE 8.4% INJ 75 MEQ in SODIUM CHLOR 0.45% 1000 ML INJ 1,000 ML IV SCH (09:37)
[2016-10-09 12:00] VITALS: BP 126/68; PULSE 78; RESP 12; TEMP 96.1; O2SAT 95
[2016-10-09 12:54] VITALS: O2SAT 96
[2016-10-09 17:09] LABS: ALBUMIN SPE 3.73 GM/DL (3.50-5.00); ALPHA 1 GLOBULIN 0.33 GM/DL (0.11-0.29); ALPHA 2 GLOBULIN 0.94 GM/DL (0.22-1.00); BETA GLOBULINS (SPE) 0.86 GM/DL (0.53-1.03)
[2016-10-10 11:54] LABS: MYELOPEROXIDASE LESS THAN 1.0 AI (<1.0); PROTEINASE-3 LESS THAN 1.0 AI (<1.0)
--- NOTE | 2016-10-13 12:23 | MD ---
cc: GHULAM MILAN MD ADMISSION DATE: 10/06/2016 DISCHARGE DATE: 10/09/2016 The patient left AMA. DISCHARGE SUMMARY This is a 51-year-old male admitted with acute renal failure. Nephrology saw the patient and the patient had normal sodium. Eosinophils was negative, CEDRIC, ANC and SPEP are pending. CPK was normal. The patient had a recent kidney stone, seen by urology. He had a bilateral renal stent placement. The patient has hypoglycemia secondary to acute renal injury. History of diabetes mellitus, hyperlipidemia, history of smoking, advised to quit smoking. He has hyperkalemia which was resolved, seen by nephrology, Dr. Dajuan Marte, and also seen by urology. The patient had renal ultrasound which shows stable mild right hydronephrosis yesterday. CT scan documented a stone in the right proximal ureter, nonobstructing right lower pole renal stone measuring approximately 7 mm. The patient had leukocytosis during the hospital stay and also anemia with hemoglobin of 11.4. The patient had hyperkalemia 5.9, potassium decreased down to 4.7. The patient has renal failure with a creatinine of 7.40, which decreased down to 5.93 after stent placement. The patient's beta-hydroxybutyrate was 0.11. Urine examination shows small leukocyte esterase, 15-19 RBCs, 3 to 5 WBCs. Antiproteinase 3, CEDRIC and anti-myeloperoxidase are pending. The patient left AMA and signed the paper. Further details in the medical record. Ghulam Milan MD EA/HUMBERTO /3:34 PM /12:17 PM
== END 2016-10-09 15:03 | disposition left against medical advice (07) | DRG 694 ==
LOC: PHED 03:20 → PHEDA 05:21 → PH3A 06:22 → HPAC 10-08 16:11 → N07A 10-08 22:21
PROVIDERS: ADMIT Family Medicine; ATTEND Family Medicine
PROC: BT14YZZ Fluoroscopy of Kidneys, Ureters and Bladder using Other Contrast (ICD-10-PCS; 2016-10-08)
PROC: 0T788DZ Dilation of Bilateral Ureters with Intraluminal Device, Via Natural or Artificial Opening Endoscopic (ICD-10-PCS; principal; 2016-10-08 20:39)
DX: N13.2 Hydronephrosis with renal and ureteral calculous obstruction (principal); E11.22 Type 2 diabetes mellitus with diabetic chronic kidney disease; E87.2 Acidosis; N17.9 Acute kidney failure, unspecified; N18.3 Chronic kidney disease, stage 3 (moderate); E11.649 Type 2 diabetes mellitus with hypoglycemia without coma; I12.9 Hypertensive chronic kidney disease with stage 1 through stage 4 chronic kidney disease, or unspecified chronic kidney disease; E87.5 Hyperkalemia; K57.30 Diverticulosis of large intestine without perforation or abscess without bleeding; F17.210 Nicotine dependence, cigarettes, uncomplicated; Z87.442 Personal history of urinary calculi
CPT/HCPCS: 74176; 74420; 76775; 80048; 80053; 81001; 82010; 82550; 82570; 82948; 83735; 84100; 84165; 84300; 84550; 85025; 86021; 86038; 87205; 93005; 96361; 96374; C1769; C2617; J1644; J2060; J2270; J2370; J2405; J2710; J2765; J3010; J7030; Q9967

== ENCOUNTER 2016-11-02 09:01 | Emergency (ER) | payer SELFPAY ==
[~2016-11-02] VITALS: Ht 193 cm; Wt 127.2 kg
[~2016-11-02 09:01] MED LIST changes: -ASPI325T PO; -DICL75 PO; +FLUO20CA4 PO; -FLUO20TA20 PO; +GLIP10TA6 PO; -GLUC10TA3 PO; -LISI-360 PO; +LISI10TA3 PO; -LOPI600T PO; -METF500 PO; -NAPR250T57 PO; +TRAM50TA PO; -ULTR50TA PO; +cholesterol pill
[2016-11-02 09:03] VITALS: BP 140/80; PULSE 106; RESP 24; TEMP 97.5; O2SAT 100
[2016-11-02] MEDS ORDERED: LOVA10TA PO (09:20)
[2016-11-02] MEDS ORDERED: FENO1TAB46 PO (09:20)
[2016-11-02] MEDS ORDERED: SODIUM CHLORIDE 0.9% FLUSH 10 ML FLUSH IV FLUSH PRN (09:45)
[2016-11-02] MEDS ORDERED: SODIUM CHLOR 0.9% 1000 ML INJ 1,000 ML IV SCH (09:45)
[2016-11-02 10:17] LABS: AUTOMATED NEUTROPHIL # 7.5 TH/MM3 (1.8-7.7); BASOPHIL # 0.1 TH/MM3 (0-0.2); BASOPHIL % 0.7 % (0.0-2.0); EOSINOPHIL # 0.5 TH/MM3 (0-0.4); EOSINOPHIL % 4.8 % (0.0-4.0); HEMATOCRIT 38.8 % (39.0-51.0); HEMO FLAGS DIFF FINAL; LYMPH % 18.7 % (9.0-44.0); MEAN CORPUSCULAR HEMOGLOBIN 29.7 PG (27.0-34.0); MONO % 5.5 % (0.0-8.0); NEUT % 70.3 % (16.0-70.0); PLATELET COUNT 303 TH/MM3 (150-450); RED BLOOD COUNT 4.56 MIL/MM3 (4.50-5.90); RED CELL DISTRIBUTION WIDTH 13.9 % (11.6-17.2); WHITE BLOOD COUNT 10.7 TH/MM3 (4.0-11.0)
[2016-11-02 10:19] LABS: BLOOD, URINE MOD (NEG); COMMENT (UR) CULTURE INDICATED; CULTURE IF INDICATED CULTURE INDICATED; GLUCOSE,URINE 1000 mg/dL (NEG); KETONE, URINE NEG (NEG); MUCUS URINE FEW /lpf (OCC); NITRITE,URINE NEG (NEG); PH, URINE 5.5 (5.0-8.5); URINE COLOR YELLOW (YELLW/STRAW)
[2016-11-02 10:21] LABS: APTT (PATIENT) 27.7 SEC (24.3-30.1); INTERNATIONAL NORMALIZED RATIO 1.1 RATIO; PROTHROMBIN TIME - PATIENT 11.7 SEC (9.8-11.6)
[2016-11-02 10:49] LABS: ALKALINE PHOSPHATASE 132 U/L (45-117); ALT (GPT) 46 U/L (12-78); ANION GAP 9 MEQ/L (5-15); AST (GOT) 25 U/L (15-37); BICARBONATE 24.4 MEQ/L (21.0-32.0); BLOOD UREA NITROGEN 39 MG/DL (7-18); CHLORIDE 99 MEQ/L (98-107); GLOMERULAR FILTRATION RATE 28 ML/MIN (>89); POTASSIUM 4.7 MEQ/L (3.5-5.1); SODIUM (NA) 132 MEQ/L (136-145); TOTAL BILIRUBIN ADULT 0.5 MG/DL (0.2-1.0)
--- NOTE | 2016-11-02 10:50 | RADRPT ---
EXAM DATE/TIME: 11/02/2016 10:22 [facility] COMPARISON: CT ABDOMEN & PELVIS W/O CONTRAST, October 06, 2016, 5:41. INDICATIONS : Left flank pain today. Recent bilateral renal calculi status post bilateral stent placement. ORAL CONTRAST: No oral contrast ingested. RADIATION DOSE: 21.03 CTDIvol (mGy) MEDICAL HISTORY : Stroke. Cardiovascular disease SURGICAL HISTORY : Appendectomy. bilateral ureter stent ENCOUNTER: Initial ACUITY: 1 day PAIN SCALE: 9/10 LOCATION: Left flank TECHNIQUE: Volumetric scanning of the abdomen and pelvis was performed. Using automated exposure control and ad justment of the mA and/or kV according to patient size, radiation dose was kept as low as reasonably achievable to obtain optimal diagnostic quality images. FINDINGS: LOWER LUNGS: The visualized lower lungs are clear. LIVER: Homogeneous density without lesion. There is no dilation of the biliary tree. No calcified gallston es. SPLEEN: Normal size without lesion. PANCREAS: Within normal limits. KIDNEYS: The kidneys remain normal in size and shape. There are bilateral renal stent catheters present. In th e right kidney there are multiple grouped renal calculi in the lower pole collecting system. The larg est measures up to 1 cm. There are multiple adjacent smaller calculi. In the left kidney there is a t iny 1 mm calculus lower pole collecting system. There is no hydronephrosis. Ureters appear grossly un remarkable with stents in place. ADRENAL GLANDS: Within normal limits. VASCULAR: There is no aortic aneurysm. BOWEL/MESENTERY: The stomach, small bowel, and colon demonstrate no acute abnormality. There is no free intraperitone al air or fluid. ABDOMINAL WALL: Within normal limits. RETROPERITONEUM: There is no lymphadenopathy. BLADDER: No wall thickening or mass. REPRODUCTIVE: Within normal limits. INGUINAL: There is no lymphadenopathy or hernia. MUSCULOSKELETAL: Within normal limits for patient age. CONCLUSION: 1. Bilateral ureteral stent catheters in place with small bilateral renal calculi. 2. There are no definite visualized ureteral calculi or bladder calculi. Chapin Knight MD on November 02, 2016 at 10:44 Board Certified Radiologist. This report was verified electronically.
[2016-11-02 11:30] VITALS: BP 114/76; PULSE 92; RESP 24; TEMP 97.9; O2SAT 97
--- NOTE | 2016-11-02 12:05 | PD ---
HPI Chief Complaint: Flank/Kidney Pain Time Seen by Provider: 09:39 Travel History International Travel<30 days: No Contact w/Intl Traveler<30days: No Traveled to known affect area: No History of Present Illness HPI Patient is a 51-year-old male who presents emergency Department with complaints of bilateral flank pain right greater than left. Patient states that approximately 3 weeks ago he came in for multiple kidney stones and had bilateral stents placed. He states that his pain had been well under control at home but got fairly severe this morning. He denies a history of dysuria. Denies fevers. States that he drove himself here this morning. Endorses some mild nausea without vomiting. PFSH Past Medical History Hx Anticoagulant Therapy: Yes (ASPIRIN) Anxiety: Yes Depression: Yes (FULOXITINE ) Cancer: No Cardiovascular Problems: Yes High Cholesterol: Yes Chest Pain: Yes Diabetes: Yes Patient Takes Glucophage: No Endocrine: Yes Genitourinary: Yes Headaches: Yes Hypertension: Yes Kidney Stones: Yes (STATES HES LOST COUNT HOW MANY ) Musculoskeletal: Yes (NECK FUSION, LEFT COLLAR BONE REMOVAL?) Neurologic: Yes (CARPAL TUNNEL, PERIPHERAL NEUROPATHY ) Psychiatric: Yes Reproductive: No Respiratory: Yes Migraines: Yes Renal Failure: Yes (stage2) Sleep Apnea: Yes Past Surgical History Abdominal Surgery: Yes (APPENDECTOMY ) Appendectomy: Yes Body Medical Devices: SPACERS IN CERVICAL AREA Cardiac Surgery: No Oral Surgery: Yes (TONSILECTOMY ) Pacemaker: No Tonsillectomy: Yes Other Surgery: Yes (neck, shoulder) Social History Alcohol Use: No Tobacco Use: Yes (1 PPD) Substance Use: No Allergies-Medications (Allergen,Severity, Reaction): Coded Allergies: No Known Allergies (Unverified , 11/02/16) Reported Meds & Prescriptions Reported Meds & Active Scripts Active Percocet (Oxycodone-Acetaminophen) 10-325 mg Tab 1 Tab PO Q6H PRN Reported Fenofibrate 40 Mg Tab Unknown Dose PO DAILY Lovastatin 10 Mg Tab Unknown Dose PO DAILY [cholesterol pill] Sumatriptan (Sumatriptan Succinate) 50 Mg Tab 50 Mg PO ONCE PRN If a satisfactory response has not been obtained at 2 hours, a second dose may be administered Tramadol (Tramadol HCl) 50 Mg Tab 50 Mg PO Q6H PRN Lisinopril 10 Mg Tab 10 Mg PO DAILY Glipizide 10 Mg Tab 10 Mg PO BIDAC Take 30 minutes before a meal Fluoxetine (Fluoxetine HCl) 20 Mg Cap 40 Mg PO DAILY Review of Systems Except as stated in HPI: all other systems reviewed are Neg Physical Exam Narrative GENERAL: Well-developed well-nourished appears mildly uncomfortable SKIN: No rash no wound on chest abdomen or back. HEAD: Atraumatic. Normocephalic. EYES: Pupils equal and round. No scleral icterus. No injection or drainage. ENT: No nasal bleeding or discharge. Mucous membranes pink and moist. NECK: Trachea midline. No JVD. CARDIOVASCULAR: Regular rate and rhythm. No murmur appreciated. RESPIRATORY: No accessory muscle use. Clear to auscultation. Breath sounds equal bilaterally. GASTROINTESTINAL: Abdomen soft, non-tender, nondistended. Hepatic and splenic margins not palpable. Trivial CVA tenderness bilaterally. MUSCULOSKELETAL: No obvious deformities. No clubbing. No cyanosis. No edema. NEUROLOGICAL: Awake and alert. No obvious cranial nerve deficits. Motor grossly within normal limits. Normal speech. PSYCHIATRIC: Appropriate mood and affect; insight and judgment normal. Data Data Last Documented VS Vital Signs Date Time Temp Pulse Resp B/P Pulse Ox O2 Delivery O2 Flow Rate FiO2 11/02/16 11:30 97.9 92 24 114/76 97 Room Air Orders Urinalysis - C+S If Indicated (11/02/16 09:25) Complete Blood Count With Diff (11/02/16 09:45) Comprehensive Metabolic Panel (11/02/16 09:45) Prothrombin Time / Inr (Pt) (11/02/16 09:45) Act Partial Throm Time (Ptt) (11/02/16 09:45) Ct Abd/Pel W/O Iv Contrast (11/02/16 09:45) Iv Access Insert/Monitor (11/02/16 09:45) Ecg Monitoring (11/02/16 09:45) Oximetry (11/02/16 09:45) Sodium Chlor 0.9% 1000 Ml Inj (Ns 1000 M (11/02/16 09:45) Sodium Chloride 0.9% Flush (Ns Flush) (11/02/16 09:45) Urine Culture (11/02/16 09:54) Ketorolac Inj (Toradol Inj) (11/02/16 12:15) Labs Laboratory Tests Test 5/6/17 5/6/17 09:25 09:54 White Blood Count 10.7 TH/MM3 Red Blood Count 4.56 MIL/MM3 Hemoglobin 13.6 GM/DL Hematocrit 38.8 % Mean Corpuscular Volume 85.0 FL Mean Corpuscular Hemoglobin 29.7 PG Mean Corpuscular Hemoglobin 35.0 % Concent Red Cell Distribution Width 13.9 % Platelet Count 303 TH/MM3 Mean Platelet Volume 7.8 FL Neutrophils (%) (Auto) 70.3 % Lymphocytes (%) (Auto) 18.7 % Monocytes (%) (Auto) 5.5 % Eosinophils (%) (Auto) 4.8 % Basophils (%) (Auto) 0.7 % Neutrophils # (Auto) 7.5 TH/MM3 Lymphocytes # (Auto) 2.0 TH/MM3 Monocytes # (Auto) 0.6 TH/MM3 Eosinophils # (Auto) 0.5 TH/MM3 Basophils # (Auto) 0.1 TH/MM3 CBC Comment DIFF FINAL Differential Comment Prothrombin Time 11.7 SEC Prothromb Time International 1.1 RATIO Ratio Activated Partial 27.7 SEC Thromboplast Time Sodium Level 132 MEQ/L Potassium Level 4.7 MEQ/L Chloride Level 99 MEQ/L Carbon Dioxide Level 24.4 MEQ/L Anion Gap 9 MEQ/L Blood Urea Nitrogen 39 MG/DL Creatinine 2.45 MG/DL Estimat Glomerular Filtration 28 ML/MIN Rate Random Glucose 332 MG/DL Calcium Level 9.1 MG/DL Total Bilirubin 0.5 MG/DL Aspartate Amino Transf 25 U/L (AST/SGOT) Alanine Aminotransferase 46 U/L (ALT/SGPT) Alkaline Phosphatase 132 U/L Total Protein 8.3 GM/DL Albumin 3.9 GM/DL Urine Color YELLOW Urine Turbidity HAZY Urine pH 5.5 Urine Specific [place] 1.018 Urine Protein 30 mg/dL Urine Glucose (UA) 1000 mg/dL Urine Ketones NEG mg/dL Urine Occult Blood MOD Urine Nitrite NEG Urine Bilirubin NEG Urine Urobilinogen LESS THAN 2.0 MG/DL Urine Leukocyte Esterase LARGE Urine RBC /hpf Urine WBC 35 /hpf Urine Mucus FEW /lpf Microscopic Urinalysis Comment CULTURE INDICATED MDM Medical Decision Making Medical Screen Exam Complete: Yes Emergency Medical Condition: Yes Differential Diagnosis Obstructive uropathy, urinary tract infection, postoperative pain, kidney stone. Narrative Course Patient was roomed in the emergency department, appears uncomfortable. He was offered Toradol and morphine though he does have a history of acute kidney injury. Patient on his last admission had a creatinine of 7 prompting stent placement. Patient states that he had his creatinine checked an outside facility a few days ago and his creatinine was 2. Patient CAT scan was obtained and shows: Last 24 hours Impressions Abdomen/Pelvis CT 11/02/16 0945 Signed Impressions: Service Date/Time: Wednesday, November 02, 2016 10:22 - CONCLUSION: 1. Bilateral ureteral stent catheters in place with small bilateral renal calculi. 2. There are no definite visualized ureteral calculi or bladder calculi. Chapin Knight MD This is a reassuring study. Patient initially declining any pain medicine given his history of acute kidney injury on revisit still in pain and has no ride home like something for pain. After discussion of the risk of continuing acute kidney injury with Toradol he is agreed for a dose. Patient does not have a ride home and therefore there is a contraindication opiates. Patient was discussed with Dr. Kim who agrees the patient can go home. He needs to have follow-up with Dr. Thompson the head is earliest convenience. Case management has seen him to discuss his possibilities within 4 minutes since he signed out AMA he may not qualify for [facility]. They will do with a can to find him some funding. The patient's pain does appear fairly well controlled and he is stable for discharge at this time. Discussed return to ED criteria. Diagnosis Primary Impression: Flank pain Referrals: Bowen Blackwell MD Med/Other Pt SpecificInfo: Prescription(s) given Scripts Oxycodone-Acetaminophen (Percocet)10-325 mg Tab1 Tab PO Q6H PRN (PAIN) #15 TAB Ref 0 Prov:Uriel Sahni MD 11/02/16 Disposition: 01 DISCHARGE HOME Condition: Stable Uriel Sahni MD November 02, 2016 12:05
[2016-11-02] MEDS ORDERED: KETOROLAC TROMETHAMINE 30 MG/ML (IVP) VIAL IV PUSH ONE (12:15)
[2016-11-02] MEDS ORDERED: PERC10TA27 PO (12:21)
== END 2016-11-02 12:37 | disposition home or self-care (01) ==
LOC: NEPC 09:01
DX: R10.84 Generalized abdominal pain (principal); E11.22 Type 2 diabetes mellitus with diabetic chronic kidney disease; N18.2 Chronic kidney disease, stage 2 (mild); I12.9 Hypertensive chronic kidney disease with stage 1 through stage 4 chronic kidney disease, or unspecified chronic kidney disease; F41.8 Other specified anxiety disorders; E78.00 Pure hypercholesterolemia, unspecified; F17.210 Nicotine dependence, cigarettes, uncomplicated; Z79.82 Long term (current) use of aspirin
CPT/HCPCS: 74176; 80053; 81001; 85025; 85610; 85730; 87086; 96361; 96374; 99284; J1885; J7030

== ENCOUNTER 2017-02-16 03:17 | Emergency (ER) | payer SELFPAY ==
[~2017-02-16] VITALS: Ht 185.4 cm; Wt 88.0 kg
[~2017-02-16 03:17] MED LIST changes: +FENO1TAB46 PO; +LOVA10TA PO; +PERC10TA27 PO
[2017-02-16 03:21] VITALS: BP 149/83; PULSE 104; RESP 20; TEMP 97.7; O2SAT 99
[2017-02-16] MEDS ORDERED: FLUO20CA12 PO (03:33)
--- NOTE | 2017-02-16 04:13 | PD ---
HPI Chief Complaint: Fall Time Seen by Provider: 04:03 Travel History International Travel<30 days: No Contact w/Intl Traveler<30days: No Traveled to known affect area: No History of Present Illness HPI Patient is 52-year-old male with history of hypertension, hyperlipidemia who presents to emergency room complaints of right-sided rib pain. Patient reports that he tripped and fell on and now has right sided rib pain. Patient reports that he is not on any anticoagulants at this time. Patient denies any trauma to his head or neck, denies loss of consciousness. Patient with no chest pain or shortness breath at this time. PFSH Past Medical History Hx Anticoagulant Therapy: Yes (ASPIRIN) Anxiety: Yes Depression: Yes (FULOXITINE ) Cancer: No Cardiovascular Problems: Yes High Cholesterol: Yes Chest Pain: Yes Diabetes: Yes Patient Takes Glucophage: Yes Diminished Hearing: No Endocrine: Yes Genitourinary: Yes Headaches: Yes Hypertension: Yes Kidney Stones: Yes (STATES HES LOST COUNT HOW MANY ) Musculoskeletal: Yes (NECK FUSION, LEFT COLLAR BONE REMOVAL?) Neurologic: Yes (CARPAL TUNNEL, PERIPHERAL NEUROPATHY ) Psychiatric: Yes Reproductive: No Respiratory: Yes Migraines: Yes Renal Failure: Yes (stage2) Sleep Apnea: Yes Tetanus Vaccination: Unknown Past Surgical History Abdominal Surgery: Yes (APPENDECTOMY ) Appendectomy: Yes Body Medical Devices: SPACERS IN CERVICAL AREA Cardiac Surgery: No Oral Surgery: Yes (TONSILECTOMY ) Pacemaker: No Tonsillectomy: Yes Other Surgery: Yes (neck, shoulder) Social History Alcohol Use: No Tobacco Use: Yes (1 PPD) Substance Use: No Allergies-Medications (Allergen,Severity, Reaction): Coded Allergies: No Known Allergies (Unverified , 11/02/16) Reported Meds & Prescriptions Reported Meds & Active Scripts Active Reported Fluoxetine (Fluoxetine HCl) 20 Mg Capsule 20 Mg PO DAILY Fenofibrate 40 Mg Tab Unknown Dose PO DAILY Lovastatin 10 Mg Tab Unknown Dose PO DAILY [cholesterol pill] Sumatriptan (Sumatriptan Succinate) 50 Mg Tab 50 Mg PO ONCE PRN If a satisfactory response has not been obtained at 2 hours, a second dose may be administered Tramadol (Tramadol HCl) 50 Mg Tab 50 Mg PO Q6H PRN Lisinopril 10 Mg Tab 10 Mg PO DAILY Glipizide 10 Mg Tab 10 Mg PO BIDAC Take 30 minutes before a meal Review of Systems General / Constitutional: No: Fever Eyes: No: Visual changes HENT: No: Headaches Cardiovascular: No: Chest Pain or Discomfort Respiratory: Positive: Other (right sided rib pain), No: Shortness of Breath Gastrointestinal: No: Abdominal Pain Genitourinary: No: Dysuria Musculoskeletal: No: Pain Skin: No Rash Neurologic: No: Weakness Psychiatric: No: Depression Endocrine: No: Polydipsia Hematologic/Lymphatic: No: Easy Bruising Physical Exam Narrative GENERAL: Mild distress SKIN: Focused skin assessment warm/dry. HEAD: Atraumatic. Normocephalic. EYES: Pupils equal and round. No scleral icterus. No injection or drainage. ENT: No nasal bleeding or discharge. Mucous membranes pink and moist. NECK: Trachea midline. No JVD. CARDIOVASCULAR: Regular rate and rhythm. No murmur appreciated. Patient with pain to his right lateral ribs, no obvious bruising on exam RESPIRATORY: No accessory muscle use. Clear to auscultation. Breath sounds equal bilaterally. GASTROINTESTINAL: Abdomen soft, non-tender, nondistended. Hepatic and splenic margins not palpable. MUSCULOSKELETAL: No obvious deformities. No clubbing. No cyanosis. No edema. NEUROLOGICAL: Awake and alert. No obvious cranial nerve deficits. Motor grossly within normal limits. Normal speech. PSYCHIATRIC: Appropriate mood and affect; insight and judgment normal. Data Data Last Documented VS Vital Signs Date Time Temp Pulse Resp B/P Pulse Ox O2 Delivery O2 Flow Rate FiO2 02/16/17 03:21 97.7 104 20 149/83 99 Room Air Orders Ribs, Uni (W/Exp Cxr-Min 3vw) (02/16/17 ) Oxycodone-Acetamin 5-325 Mg (Percocet (02/16/17 04:15) MDM Medical Decision Making Medical Screen Exam Complete: Yes Emergency Medical Condition: Yes Interpretation(s) Vital Signs Date Time Temp Pulse Resp B/P Pulse Ox O2 Delivery O2 Flow Rate FiO2 02/16/17 03:21 97.7 104 20 149/83 99 Room Air Differential Diagnosis Differential includes pneumothorax, rib fracture/strain/contusion Narrative Course Patient is a 52-year-old male who presents to emergency room with complaints of right-sided rib pain after he tripped and fell on . Patient reports pain with movement, he currently is not on anticoagulants. Denies any trauma to head or neck, denies any loss of consciousness, no other complaints. X-ray of the right ribs ordered xray of ribs with no acute fx - patient with most likely rib contusion; a copy of pt's xray was given to him as he will need to follow up with pcp plan for patient to follow up with pcp and return to ER as needed Diagnosis Primary Impression: Contusion of rib on right side Qualified Code: S20.211A - Contusion of rib on right side, initial encounter Patient Instructions: General Instructions Additional Instructions: Please return to ER as needed Please follow up with your primary care doctor Do not drive or operate heavy machinery while taking narcotic pain medications Med/Other Pt SpecificInfo: Prescription(s) given Scripts Oxycodone-Acetaminophen (Percocet)5-325 mg Tab1 Tab PO Q6H PRN (PAIN) #10 TAB Ref 0 Prov:Nevaeh Ramirez DO 02/16/17 Disposition: 01 DISCHARGE HOME Nevaeh Rmairez DO Feb 16, 2017 04:13
[2017-02-16] MEDS ORDERED: oxyCODONE/ACETAMINOPHEN 5 MG/325 MG TAB PO ONE (04:15)
--- NOTE | 2017-02-16 05:52 | RADRPT ---
EXAM DATE/TIME: 02/16/2017 05:10 [facility] COMPARISON: No previous studies available for comparison. INDICATIONS : Right anterior rib pain from fall three days ago. MEDICAL HISTORY : Stroke. Cardiovascular disease. Renal calculi. SURGICAL HISTORY : Appendectomy. Bilateral ureteral stents ENCOUNTER: Initial ACUITY: 3 days PAIN SCORE: 10/10 LOCATION: Right anterior chest FINDINGS: Multiple views of the right ribs were performed. There is no evidence of displaced fracture. No millicent tructive lesions or areas of periosteal thickening are seen. Expiratory view of the chest is negativ e for pneumothorax. The mediastinal structures are midline. Anterior fixation of the lower cervical spine. CONCLUSION: Negative exam. No rib fracture. Lungs are clear. Kendrick Aguillon MD on February 16, 2017 at 5:49 Board Certified Radiologist. This report was verified electronically.
[2017-02-16] MEDS ORDERED: PERC5TAB12 PO (05:55)
== END 2017-02-16 05:59 | disposition home or self-care (01) ==
LOC: NEPC 03:17
DX: S20.211A Contusion of right front wall of thorax, initial encounter (principal); R07.81 Pleurodynia; W01.0XXA Fall on same level from slipping, tripping and stumbling without subsequent striking against object, initial encounter; I11.0 Hypertensive heart disease with heart failure; E78.5 Hyperlipidemia, unspecified; E11.9 Type 2 diabetes mellitus without complications; Z79.84 Long term (current) use of oral hypoglycemic drugs
CPT/HCPCS: 71101; 99283

== ENCOUNTER 2017-07-23 04:51 | Inpatient (IN) | payer SELFPAY ==
[~2017-07-23] VITALS: Ht 193 cm; Wt 135.0 kg
[~2017-07-23 04:51] MED LIST changes: +FLUO20CA12 PO; -FLUO20CA4 PO; -PERC10TA27 PO; +PERC5TAB12 PO
[2017-07-23 04:53] VITALS: BP 163/93; PULSE 104; RESP 20; TEMP 98; O2SAT 99
--- NOTE | 2017-07-23 05:08 | PD ---
HPI Chief Complaint: Flank/Kidney Pain Time Seen by Provider: 05:07 Travel History International Travel<30 days: No Contact w/Intl Traveler<30days: No Traveled to known affect area: No History of Present Illness HPI 52-year-old male came to the emergency room with history of sudden onset bilateral flank pain at midnight. He seems quite uncomfortable. He has been nauseous and vomiting. Patient has history of renal failure as well as renal stones. He says it feels like he is passing stones. Patient was slightly tachycardic in triage. Patient says that his last creatinine last year was 7.6. He does not have a urologist or her cavalry scout that he follows up with since he doesn't have insurance. [facility] Past Medical History Narrative Medical List of his past medical, surgical, social and family history is reviewed from the nursing note. Hx Anticoagulant Therapy: Yes (ASPIRIN) Anxiety: Yes Depression: Yes (FULOXITINE ) Cancer: No Cardiovascular Problems: Yes High Cholesterol: Yes Chest Pain: Yes Diabetes: Yes Patient Takes Glucophage: No Diminished Hearing: No Endocrine: Yes Gastrointestinal Disorders: Yes Genitourinary: Yes Headaches: Yes Hypertension: Yes Kidney Stones: Yes (STATES HES LOST COUNT HOW MANY ) Musculoskeletal: Yes (NECK FUSION, LEFT COLLAR BONE REMOVAL?) Neurologic: Yes (CARPAL TUNNEL, PERIPHERAL NEUROPATHY, RIGHT SIDED WEAKNESS ) Psychiatric: Yes Reproductive: No Respiratory: Yes Migraines: Yes Renal Failure: Yes Sleep Apnea: Yes (CPAP) Past Surgical History Abdominal Surgery: Yes (APPENDECTOMY ) Appendectomy: Yes Body Medical Devices: SPACERS IN CERVICAL AREA Cardiac Surgery: No Genitourinary Surgery: Yes (LITHOTRIPSY) Oral Surgery: Yes (TONSILECTOMY ) Pacemaker: No Tonsillectomy: Yes Other Surgery: Yes Social History Alcohol Use: Yes (OCC) Tobacco Use: Yes (1 PPD) Substance Use: No Allergies-Medications (Allergen,Severity, Reaction): Coded Allergies: No Known Allergies (Unverified Allergy, Unknown, 07/23/17) Comments No known drug allergies. Reported Meds & Prescriptions Reported Meds & Active Scripts Active Percocet (Oxycodone-Acetaminophen) 5-325 mg Tab 1 Tab PO Q6H PRN Reported Fluoxetine (Fluoxetine HCl) 20 Mg Capsule 20 Mg PO DAILY Fenofibrate 40 Mg Tab Unknown Dose PO DAILY Lovastatin 10 Mg Tab Unknown Dose PO DAILY [cholesterol pill] Sumatriptan (Sumatriptan Succinate) 50 Mg Tab 50 Mg PO ONCE PRN If a satisfactory response has not been obtained at 2 hours, a second dose may be administered Lisinopril 10 Mg Tab 10 Mg PO DAILY Glipizide 10 Mg Tab 10 Mg PO BIDAC Take 30 minutes before a meal Narrative Medication List of his past medical, surgical, social and family history reviewed from the nursing note. Review of Systems Except as stated in HPI: all other systems reviewed are Neg Genitourinary: Positive: Flank Pain Physical Exam Narrative GENERAL: Awake, alert, morbidly obese, significant distress SKIN: Focused skin assessment warm/dry. HEAD: Atraumatic. Normocephalic. EYES: Pupils equal and round. No scleral icterus. No injection or drainage. ENT: No nasal bleeding or discharge. Mucous membranes pink and moist. NECK: Trachea midline. No JVD. CARDIOVASCULAR: Regular rate and rhythm. No murmur appreciated. RESPIRATORY: No accessory muscle use. Clear to auscultation. Breath sounds equal bilaterally. GASTROINTESTINAL: Abdomen soft, non-tender, nondistended. Hepatic and splenic margins not palpable. MUSCULOSKELETAL: No obvious deformities. No clubbing. No cyanosis. No edema. NEUROLOGICAL: Awake and alert. No obvious cranial nerve deficits. Motor grossly within normal limits. Normal speech. PSYCHIATRIC: Appropriate mood and affect; insight and judgment normal. Data Data Last Documented VS Vital Signs Date Time Temp Pulse Resp B/P (MAP) Pulse Ox O2 Delivery O2 Flow Rate FiO2 07/23/17 04:53 98.0 104 20 163/93 (116) 99 Orders Orders Urinalysis - C+S If Indicated (07/23/17 05:13) Complete Blood Count With Diff (07/23/17 05:14) Basic Metabolic Panel (Bmp) (07/23/17 05:14) Ct Abd/Pel W/O Iv Contrast (07/23/17 05:14) Ecg Monitoring (07/23/17 05:14) Iv Access Insert/Monitor (07/23/17 05:14) Hydromorphone Pf Inj (Dilaudid Pf Inj) (07/23/17 05:15) Ondansetron Inj (Zofran Inj) (07/23/17 05:15) Sodium Chloride 0.9% Flush (Ns Flush) (07/23/17 05:15) Sodium Chlor 0.9% 1000 Ml Inj (Ns 1000 M (07/23/17 05:14) Consent (07/23/17 06:37) Admit To Inpatient (07/23/17 ) Vital Signs (Adult) Q4H (07/23/17 06:44) Activity Oob With Assistance (07/23/17 06:44) Diet Npo (07/23/17 Breakfast) Sodium Chloride 0.9% Flush (Ns Flush) (07/23/17 06:45) Sodium Chloride 0.9% Flush (Ns Flush) (07/23/17 09:00) Acetaminophen (Tylenol) (07/23/17 06:45) Ondansetron Inj (Zofran Inj) (07/23/17 06:45) Basic Metabolic Panel (Bmp) (07/24/17 06:00) Complete Blood Count With Diff (07/24/17 06:00) Scd Bilateral/Knee High PIETRO.BID (07/23/17 06:44) Naloxone Inj (Narcan Inj) (07/23/17 06:45) Docusate Sodium-Senna (Gela-Colace) (07/23/17 09:00) Magnesium Hydroxide Liq (Milk Of Magnesi (07/23/17 06:45) Sennosides (Senokot) (07/23/17 06:45) Bisacodyl Supp (Dulcolax Supp) (07/23/17 06:45) Lactulose Liq (Lactulose Liq) (07/23/17 06:45) Inpatient Certification (07/23/17 ) Urinary Catheter Management PIETRO.Q8H (07/23/17 06:44) Consult Urology (07/23/17 ) Admit Order (Ed Use Only) (07/23/17 06:48) Labs Laboratory Tests Test 07/23/17 05:25 White Blood Count 14.7 TH/MM3 Red Blood Count 4.92 MIL/MM3 Hemoglobin 15.1 GM/DL Hematocrit 42.1 % Mean Corpuscular Volume 85.6 FL Mean Corpuscular Hemoglobin 30.6 PG Mean Corpuscular Hemoglobin Concent 35.8 % Red Cell Distribution Width 14.8 % Platelet Count 358 TH/MM3 Mean Platelet Volume 6.7 FL Neutrophils (%) (Auto) 81.3 % Lymphocytes (%) (Auto) 9.8 % Monocytes (%) (Auto) 6.6 % Eosinophils (%) (Auto) 1.7 % Basophils (%) (Auto) 0.6 % Neutrophils # (Auto) 12.0 TH/MM3 Lymphocytes # (Auto) 1.4 TH/MM3 Monocytes # (Auto) 1.0 TH/MM3 Eosinophils # (Auto) 0.2 TH/MM3 Basophils # (Auto) 0.1 TH/MM3 CBC Comment DIFF FINAL Differential Comment Blood Urea Nitrogen 39 MG/DL Creatinine 2.96 MG/DL Random Glucose 274 MG/DL Calcium Level 8.9 MG/DL Sodium Level 136 MEQ/L Potassium Level 4.3 MEQ/L Chloride Level 101 MEQ/L Carbon Dioxide Level 23.7 MEQ/L Anion Gap 11 MEQ/L Estimat Glomerular Filtration Rate 23 ML/MIN MDM Medical Decision Making Medical Screen Exam Complete: Yes Emergency Medical Condition: Yes Medical Record Reviewed: Yes Differential Diagnosis Obstructive uropathy, ureteral calculus, ureteral colic, pyelonephritis Narrative Course 6:18 AM patient was medicated for pain and nausea. He is receiving a liter of IV fluid bolus. Blood test result shows renal insufficiency. CAT scan report came back which shows bilateral obstructive uropathy. I put a call out for the urologist. Patient will require to be admitted for procedure. Awaiting for the hospitalist call back. 6:27 AM case was discussed with Dr. Nathan from urology and he would consult on the patient. Awaiting for the hospitalist to call back. Procedures EKG Prior to Arrival: No Physician Communication Physician Communication Dr. Nathan Diagnosis Primary Impression: Obstructive uropathy Additional Impressions: Renal insufficiency Bilateral ureteral calculi Ureteral colic Admitting Information Admitting Physician Requests: Admit Scripts Tamsulosin (Flomax) 0.4 Mg Cap 0.4 MG PO HS for Manage Prostate Problems, #30 CAP 0 Refills Prov: Seymour Deal MD 07/25/17 Sanaz Pacheco MD Jul 23, 2017 05:08
[2017-07-23] MEDS ORDERED: SODIUM CHLOR 0.9% 1000 ML INJ 1,000 ML IV ONE (05:14)
[2017-07-23] MEDS ORDERED: HYDROmorphone HCL PF 2 MG/ML VIAL IVS ONE (05:15)
[2017-07-23] MEDS ORDERED: ONDANSETRON HCL 4 MG/2 ML VIAL IV PUSH ONE (05:15)
[2017-07-23] MEDS ORDERED: SODIUM CHLORIDE 0.9% FLUSH 10 ML FLUSH IVF PRN (05:15)
[2017-07-23 05:32] LABS: BASOPHIL # 0.1 TH/MM3 (0-0.2); BASOPHIL % 0.6 % (0.0-2.0); EOSINOPHIL # 0.2 TH/MM3 (0-0.4); EOSINOPHIL % 1.7 % (0.0-4.0); HEMATOCRIT 42.1 % (39.0-51.0); HEMOGLOBIN 15.1 GM/DL (13.0-17.0); LYMPH % 9.8 % (9.0-44.0); LYMPHOCYTE # 1.4 TH/MM3 (1.0-4.8); MEAN CELL VOLUME 85.6 FL (80.0-100.0); MEAN CORPUSCULAR HEMOGLOBIN 30.6 PG (27.0-34.0); MEAN CORPUSCULAR HGB CONC 35.8 % (32.0-36.0); MEAN PLATELET VOLUME 6.7 FL (7.0-11.0); MONO % 6.6 % (0.0-8.0); NEUT % 81.3 % (16.0-70.0); PLATELET COUNT 358 TH/MM3 (150-450); RED BLOOD COUNT 4.92 MIL/MM3 (4.50-5.90); RED CELL DISTRIBUTION WIDTH 14.8 % (11.6-17.2); WHITE BLOOD COUNT 14.7 TH/MM3 (4.0-11.0)
[2017-07-23 06:08] LABS: BICARBONATE 23.7 MEQ/L (21.0-32.0); CALCIUM 8.9 MG/DL (8.5-10.1); CREATININE 2.96 MG/DL (0.60-1.30)
--- NOTE | 2017-07-23 06:09 | RADRPT ---
EXAM DATE/TIME: 07/23/2017 05:30 [facility] COMPARISON: CT ABDOMEN & PELVIS W/O CONTRAST, November 02, 2016, 10:22. INDICATIONS : Bilateral flank pain. ORAL CONTRAST: No oral contrast ingested. RADIATION DOSE: 31.55 CTDIvol (mGy) MEDICAL HISTORY : Renal calculi. Cardiovascular disease Diabetes. SURGICAL HISTORY : Appendectomy. ENCOUNTER: Initial ACUITY: 1 day PAIN SCALE: 8/10 LOCATION: Bilateral flank TECHNIQUE: Renal colic protocol. Volumetric scanning of the abdomen and pelvis was performed. Using automated exposure control and adjustment of the mA and/or kV according to patient size, radiation dose was kep t as low as reasonably achievable to obtain optimal diagnostic quality images. DICOM format image da ta is available electronically for review and comparison. FINDINGS: Right side: Moderate hydronephrosis and dilation of the right ureter to the mid one third where there is a 6 mm o bstructing stone. There are several other calcified stones in the right kidney, 4 in number, the lar gest of which measures 8 mm. There is perinephric stranding in the pararenal space. Left side: Severe hydronephrosis and dilation of the ureter the distal one third where there is an obstructing c alcified stone measuring 6 mm. There is an additional 5 mm calcified stone in the lower pole of the left kidney. Minimal perinephric stranding. Bladder: Nondistended. No calcifications within the lumen. Other: No dilated loops of small or large bowel. No calcified gallstones. Bilateral pars defects of L5. CONCLUSION: Bilateral obstructive uropathy with calcified ureteral stones in the mid right and distal left ureter s. There is bilateral hydronephrosis, left greater than right and there is bilateral marcus-nephric st randing of the fat, right greater than left. Jac Graham MD on July 23, 2017 at 6:02 Board Certified Radiologist. This report was verified electronically.
[2017-07-23] MEDS ORDERED: LACTULOSE SYRUP 20 GM/30 ML CUP PO PRN (06:45)
[2017-07-23] MEDS ORDERED: MAGNESIUM HYDROXIDE SUSP 30 ML CUP PO PRN (06:45)
[2017-07-23] MEDS ORDERED: SENNOSIDES 8.6 MG TAB PO PRN (06:45)
[2017-07-23] MEDS ORDERED: BISACODYL 10 MG SUPP RECTAL PRN (06:45)
[2017-07-23] MEDS ORDERED: SODIUM CHLORIDE 0.9% FLUSH 10 ML FLUSH IV FLUSH PRN (06:45)
[2017-07-23] MEDS ORDERED: ONDANSETRON HCL 4 MG/2 ML VIAL IVP PRN (06:45)
[2017-07-23] MEDS ORDERED: NALOXONE HCL 0.4 MG/ML AMP IV PUSH PRN (06:45)
[2017-07-23] MEDS ORDERED: ACETAMINOPHEN 325 MG TAB PO PRN (06:45)
[2017-07-23] MEDS: DOCUSATE SODIUM 50 MG/SENNA 8.6 MG TAB PO SCH ×2 (08:56→21:00)
[2017-07-23] MEDS: SODIUM CHLORIDE 0.9% FLUSH 10 ML FLUSH IV FLUSH SCH ×2 (09:00→22:54)
[2017-07-23 09:15] VITALS: BP 187/77; PULSE 106; RESP 20; TEMP 98.2; O2SAT 96
--- NOTE | 2017-07-23 11:45 | HHI.HP ---
[facility] Javier Alcantara DO Admission Diagnosis obstructive uropathy, bilateral ureteral stone, ureteral colic Diagnoses: Chief Complaint: Flank pain, nausea, vomiting. Travel History International Travel<30 Days: No Contact w/Intl Traveler <30 Da: No Traveled to Known Affected Are: No Sepsis Criteria SIRS Criteria (2 or more): Heart rate over 90, WBC > 31764, < 4000 or > 10% bands Criteria Outcome: Meets SIRS criteria History of Present Illness Mr. Vegas is a pleasant 52 year old male with a history of previous kidney stones who presented to the ED on 07/22/2017 due to sudden onset of bilateral flank pain that started around midnight on 07/22/2017. No fever, chills but he started having nausea, vomiting which led to this admission. He did not take any medication to make his symptoms any better. He has a history of kidney stone and he is familiar with his symptoms. He denies any chest pain, shortness of breath. No changes. On arrival, patient was somewhat tachycardic. WBC is elevated to 14.7K. Review of Systems Except as stated in HPI: all other systems reviewed are Neg Past Family Social History Past Medical History Multiple episodes of kidney stone. Neck fusion Carpal tunnel Depression. Past Surgical History Appendectomy Cervical area surgery Tonsillectomy Reported Medications Percocet (Oxycodone-Acetaminophen) 5-325 mg Tab 1 Tab PO Q6H PRN Reported Fluoxetine (Fluoxetine HCl) 20 Mg Capsule 20 Mg PO DAILY Fenofibrate 40 Mg Tab Unknown Dose PO DAILY Lovastatin 10 Mg Tab Unknown Dose PO DAILY [cholesterol pill] Sumatriptan (Sumatriptan Succinate) 50 Mg Tab 50 Mg PO ONCE PRN If a satisfactory response has not been obtained at 2 hours, a second dose may be administered Tramadol (Tramadol HCl) 50 Mg Tab 50 Mg PO Q6H PRN Lisinopril 10 Mg Tab 10 Mg PO DAILY Glipizide 10 Mg Tab 10 Mg PO BIDAC Take 30 minutes before a meal Allergies: Coded Allergies: No Known Allergies (Unverified Allergy, Unknown, 07/23/17) Family History No family history of cancer, heart disease. Social History Smokes 1 ppd. Drinks alcohol occasionally. Physical Exam Vital Signs Vital Signs Date Time Temp Pulse Resp B/P (MAP) Pulse Ox O2 Delivery O2 Flow Rate FiO2 07/23/17 04:53 98.0 104 20 163/93 (116) 99 Physical Exam GENERAL: This is a well-nourished, well-developed patient, in no apparent distress. SKIN: No rashes, ecchymoses or lesions. Warm and dry. HEAD: Atraumatic. Normocephalic. No temporal or scalp tenderness. EYES: Pupils equal round and reactive. No injection or drainage. ENT: Nose without bleeding, purulent drainage or septal hematoma. Airway patent. NECK: Trachea midline. No lymphadenopathy. Supple, nontender, no meningeal signs. CARDIOVASCULAR: Regular rate and rhythm without murmurs, gallops, or rubs. No JVD. RESPIRATORY: Clear to auscultation. Breath sounds equal bilaterally. No wheezes , rales, or rhonchi. GASTROINTESTINAL: Abdomen soft, non-tender, nondistended. No guarding. Mild CVA tenderness. MUSCULOSKELETAL: Extremities without clubbing, cyanosis, or edema. NEUROLOGICAL: Awake and alert. Cranial nerves II through XII intact. No focal neurological deficits. Normal speech. Laboratory Laboratory Tests Test 07/23/17 05:25 White Blood Count 14.7 Red Blood Count 4.92 Hemoglobin 15.1 Hematocrit 42.1 Mean Corpuscular Volume 85.6 Mean Corpuscular Hemoglobin 30.6 Mean Corpuscular Hemoglobin Concent 35.8 Red Cell Distribution Width 14.8 Platelet Count 358 Mean Platelet Volume 6.7 Neutrophils (%) (Auto) 81.3 Lymphocytes (%) (Auto) 9.8 Monocytes (%) (Auto) 6.6 Eosinophils (%) (Auto) 1.7 Basophils (%) (Auto) 0.6 Neutrophils # (Auto) 12.0 Lymphocytes # (Auto) 1.4 Monocytes # (Auto) 1.0 Eosinophils # (Auto) 0.2 Basophils # (Auto) 0.1 CBC Comment DIFF FINAL Differential Comment Blood Urea Nitrogen 39 Creatinine 2.96 Random Glucose 274 Calcium Level 8.9 Sodium Level 136 Potassium Level 4.3 Chloride Level 101 Carbon Dioxide Level 23.7 Anion Gap 11 Estimat Glomerular Filtration Rate 23 Result Diagram: 07/23/17 0525 07/23/17 0525 Imaging Last Impressions Abdomen/Pelvis CT 07/23/1714 Signed Impressions: Service Date/Time: Sunday, July 23, 2017 05:30 - CONCLUSION: Bilateral obstructive uropathy with calcified ureteral stones in the mid right and distal left ureters. There is bilateral hydronephrosis, left greater than right and there is bilateral marcus-nephric stranding of the fat, right greater than left. MD Jose Connelly VTE Risk Assessment Caprini VTE Risk Assessment: Mod/High Risk (score >= 2) Caprini Risk Assessment Model Point Value = 1 Point Value = 2 Point Value = 3 Point Value = 5 Age 41-60 Minor surgery BMI > 25 kg/m2 Swollen legs Varicose veins or History of unexplained or recurrent spontaneous Oral contraceptives or hormone replacement Sepsis (< 1 month) Serious lung disease, including pneumonia (< 1 month) Abnormal pulmonary function Acute myocardial infarction Congestive heart failure (< 1 month) History of inflammatory bowel disease Medical patient at bed rest Age 61-74 Arthroscopic surgery Major open surgery (> 45 min) Laparoscopic surgery (> 45 min) Malignancy Confined to bed (> 72 hours) Immobilizing plaster cast Central venous access Age >= 75 History of VTE Family history of VTE Factor V Leiden Prothrombin [id number] Lupus anticoagulant Anticardiolipin antibodies Elevated serum homocysteine Heparin-induced thrombocytopenia Other congenital or acquired thrombophilia Stroke (< 1 month) Elective arthroplasty Hip, pelvis, or leg fracture Acute spinal cord injury (< 1 month) Prophylaxis Regimen Total Risk Factor Score Risk Level Prophylaxis Regimen 0-1 Low Early ambulation 2 Moderate Order ONE of the following: *Sequential Compression Device (SCD) *Heparin 5000 units SQ BID 3-4 Higher Order ONE of the following medications: *Heparin 5000 units SQ TID *Enoxaparin/Lovenox 40 mg SQ daily (WT < 150 kg, CrCl > 30 mL/min) *Enoxaparin/Lovenox 30 mg SQ daily (WT < 150 kg, CrCl > 10-29 mL/min) *Enoxaparin/Lovenox 30 mg SQ BID (WT < 150 kg, CrCl > 30 mL/min) AND/OR *Sequential Compression Device (SCD) 5 or more Highest Order ONE of the following medications: *Heparin 5000 units SQ TID (Preferred with Epidurals) *Enoxaparin/Lovenox 40 mg SQ daily (WT < 150 kg, CrCl > 30 mL/min) *Enoxaparin/Lovenox 30 mg SQ daily (WT < 150 kg, CrCl > 10-29 mL/min) *Enoxaparin/Lovenox 30 mg SQ BID (WT < 150 kg, CrCl > 30 mL/min) AND *Sequential Compression Device (SCD) Assessment and Plan Problem List: (1) Obstructive uropathy ICD Code: N13.9 - Obstructive and reflux uropathy, unspecified Status: Acute (2) Hydronephrosis ICD Code: N13.30 - Unspecified hydronephrosis (3) Stage 3 chronic kidney disease ICD Code: N18.3 - Chronic kidney disease, stage 3 (moderate) Status: Acute Assessment and Plan Mr. Guzman is a pleasant 52 year old male with a history of multiple kidney stones who presented to the ED on 07/22/2017 due to bilateral flank pain that started around midnight. He also had nausea, vomiting. CT imaging indicated obstructive uropathy. - Bilateral obstructive uropathy - Bilateral hydronephrosis - Pain control with Acetaminophen, Percocet and Morphine for breakthrough. - Bowel regimen in place. - Patient underwent Urological procedure 07/23/2017. - Diabetes mellitus - Patient takes oral meds - Glipizide. - Will initiate Levemir 10 units QHS and sliding scale insulin. - Oral meds upon discharge. - Acute kidney injury - Stage III CKD - Creatinine 2.96. Hold Lisinopril. - Baseline around 2.4. - Hypertension - Currently normotensive. If needed, consider Amlodipine 5mg Qday. Full code. SCDs. If hospitalization expected to be more than 48 hours, consider pharmacological DVT prophylaxis. Physician Certification 2 Midnight Certification Type: Admission for Inpatient Services Order for Inpatient Services The services are ordered in accordance with Medicare regulations or non- Medicare payer requirements, as applicable. In the case of services not specified as inpatient-only, they are appropriately provided as inpatient services in accordance with the 2-midnight benchmark. Estimated LOS (days): 2 days is the estimated time the patient will need to remain in the hospital, assuming treatment plan goals are met and no additional complications. Post-Hospital Plan: Jeff Graves DO Jul 23, 2017 11:45
[2017-07-23] MEDS ORDERED: ONDANSETRON HCL 4 MG/2 ML VIAL IV ONE (12:00)
[2017-07-23] MEDS ORDERED: DEXAMETHASONE SOD PHOS 4 MG/ML VIAL IV ONE (12:00)
[2017-07-23] MEDS ORDERED: PROPOFOL 200 MG/20 ML AMP IV ONE (12:00)
[2017-07-23] MEDS ORDERED: SUCCINYLCHOLINE CHLORIDE 200 MG/10 ML VIAL IV ONE (12:00)
[2017-07-23] MEDS ORDERED: LIDOCAINE HCL 1% PF 5 ML SYRINGE OTHER ONE (12:00)
[2017-07-23] MEDS ORDERED: ESMOLOL HCL 100 MG/10 ML VIAL IV ONE (12:00)
[2017-07-23] MEDS ORDERED: ePHEDrine/NS 25 MG/5 ML SYRINGE IV ONE (12:00)
[2017-07-23] MEDS ORDERED: ceFAZolin INJ 1,000 MG VIAL IV ONE ×2 (12:00→14:00)
[2017-07-23] MEDS ORDERED: PHENYLEPH/NS 1000 MCG/10 ML SYR IV ONE (12:00)
[2017-07-23 12:12] LABS: BILIRUBIN, URINE NEG (NEG); BLOOD, URINE MOD (NEG); GLUCOSE,URINE 300 mg/dL (NEG); KETONE, URINE NEG (NEG); MUCUS URINE FEW /lpf (OCC); NITRITE,URINE NEG (NEG); TRANSITIONAL EPI CELLS, URINE <1 /hpf; URINE COLOR LIGHT-YELLOW (YELLW/STRAW); URINE LEUKOCYTE ESTERASE NEG (NEG)
[2017-07-23] MEDS ORDERED: SODIUM CHLORID 0.9% 500 ML IV PRN (12:30)
[2017-07-23] MEDS ORDERED: METOPROLOL TARTRATE 25 MG TAB PO PRN (12:30)
[2017-07-23] MEDS ORDERED: INSULIN HUMAN REGULAR 1,000 UNITS/10 ML VIAL SQ PRN (12:30)
[2017-07-23] MEDS ORDERED: POVIDONE IODINE 5% (ANTISEPSIS KIT) 4 APPLICATIONS EACH NARE PRN (12:30)
[2017-07-23] MEDS ORDERED: CHLORHEXIDINE GLUCONATE 2 % 1 PACK (2 CLOTHS) TOPICAL PRN (12:30)
[2017-07-23] MEDS ORDERED: LACTATED RINGER'S 1000 ML IV PRN (12:30)
[2017-07-23] MEDS ORDERED: HYDROmorphone HCL PF 2 MG/ML VIAL IV PUSH ONE (13:00)
--- NOTE | 2017-07-23 14:00 | PD.OP ---
Operative Report Date of Surgery: Jul 23, 2017 Preoperative Diagnosis: Bilateral renal calculi with bilateral ureteral obstruction with hydronephrosis and acute renal failure Postoperative Diagnosis: Same Procedure: Cystoscopy with bilateral retrograde study, left ureteroscopy, evacuation of bladder stones, bilateral double-J stent insertion Anesthesia: KAVEH Surgeon: Gabriel Nathan Transportation Dispatcher(s): None Resident Surgeon: None Operation and Findings: 52-year-old male presented in acute renal failure to the emergency room. CT scan demonstrated bilateral renal calculi and bilateral ureteral calculi causing bilateral hydronephrosis. Decision was made to bring the patient to the operating room to undergo cystoscopy with bilateral double-J stent insertion and possible ureteroscopy with stone extraction. Risk and benefits were discussed preoperatively he was willing to proceed. Patient is brought to the operating room and identified by myself as Owen Vegas. He was placed in dorsal lithotomy position, prepped and draped in usual sterile fashion, received preprocedure antibiotics and general endotracheal tube anesthesia was administered. 22 Montenegrin scope was inserted and the bladder. Upon entering the prostatic urethra large coapting lobes with a high riding bladder neck was identified. Multiple bladder stones were identified within the bladder. The right ureteral orifice was identified and a 5 Montenegrin open catheter was inserted into the right ureteral orifice and a retrograde study was performed. A 0.35 sensor wire was then passed through the open-ended catheter with a good curl in the kidney. The opening catheter was removed and then a 6 Montenegrin 24 cm right double-J stent was passed up on the right side without difficulty. The left ureteral orifice was then identified and a of urinary catheter was inserted in the left ureteral orifice and retropyelogram was performed. A 0.35 sensor wire was then passed through the opening catheter leaving the wire in place and removing the catheter. The rigid ureteroscope was then passed up the distal ureter but no stone was visualized. Decision made then to back loaded the cystoscope over the wire and placed a 6 Montenegrin 24 cm left double-J stent. The stent was placed in good position. Using the Jessica evacuator the bladder stones were then evacuated. The scope was then removed and he was awoken and extubated and transferred to the recovery room in stable condition. Gabriel Nathan DO Jul 23, 2017 14:00
[2017-07-23] MEDS ORDERED: DO NOT ADM ANY ANTICOAGULANT DRUGS PRN (14:12)
[2017-07-23] MEDS ORDERED: PHENYLEPH/NS 1000 MCG/10 ML SYR ONE (14:14)
[2017-07-23 16:00] VITALS: BP 143/74; PULSE 101; RESP 19; TEMP 96.6; O2SAT 93
[2017-07-23 16:33] VITALS: O2SAT 92
[2017-07-23] MEDS ORDERED: MORPHINE SULFATE 4 MG/ML INJ IV PUSH PRN (17:15)
[2017-07-23 20:00] VITALS: BP 133/72; PULSE 78; RESP 18; TEMP 98.8; O2SAT 94
[2017-07-23] MEDS ORDERED: DEXTROSE 50% IN WATER 50 ML VIAL(D50) IV PUSH PRN (20:00)
[2017-07-23] MEDS ORDERED: GLUCAGON 1 MG/ML VIAL OTHER PRN (20:00)
[2017-07-23] MEDS: PRAVASTATIN SOD 20 MG TAB PO SCH (22:52)
[2017-07-23] MEDS: INSULIN ASPART SUPPLEMENTAL SCALE SQ SCH (22:53)
[2017-07-23] MEDS: INSULIN DETEMIR 100 UNITS/ML VIAL SQ SCH (22:53)
[2017-07-23] MEDS: ceFAZolin 2 GM PREMIX 50 ML IV SCH (22:55)
[2017-07-23] MEDS: oxyCODONE/ACETAMINOPHEN 7.5 MG/325 MG TAB PO PRN (22:58)
[2017-07-24 00:42] VITALS: BP 130/71; PULSE 100; RESP 20; TEMP 99.2; O2SAT 94
[2017-07-24] MEDS: ceFAZolin 2 GM PREMIX 50 ML IV SCH ×3 (04:45→21:46)
[2017-07-24 05:39] VITALS: BP 124/70; PULSE 78; RESP 20; TEMP 98.9; O2SAT 96
[2017-07-24 05:51] LABS: AUTOMATED NEUTROPHIL # 13.3 TH/MM3 (1.8-7.7); BASOPHIL # 0.2 TH/MM3 (0-0.2); HEMATOCRIT 38.2 % (39.0-51.0); HEMOGLOBIN 13.1 GM/DL (13.0-17.0); LYMPH % 6.5 % (9.0-44.0); MEAN CELL VOLUME 86.2 FL (80.0-100.0); MEAN CORPUSCULAR HEMOGLOBIN 29.6 PG (27.0-34.0); MEAN CORPUSCULAR HGB CONC 34.4 % (32.0-36.0); MEAN PLATELET VOLUME 6.9 FL (7.0-11.0); MONOCYTE # 0.8 TH/MM3 (0-0.9); NEUT % 87.5 % (16.0-70.0); PLATELET COUNT 297 TH/MM3 (150-450); RED BLOOD COUNT 4.43 MIL/MM3 (4.50-5.90); RED CELL DISTRIBUTION WIDTH 14.7 % (11.6-17.2); WHITE BLOOD COUNT 15.2 TH/MM3 (4.0-11.0)
[2017-07-24 06:24] LABS: BICARBONATE 22.7 MEQ/L (21.0-32.0); CALCIUM 8.7 MG/DL (8.5-10.1); CREATININE 2.98 MG/DL (0.60-1.30)
[2017-07-24 08:00] VITALS: BP 124/73; PULSE 99; RESP 17; TEMP 98.4; O2SAT 95
[2017-07-24] MEDS: DOCUSATE SODIUM 50 MG/SENNA 8.6 MG TAB PO SCH ×2 (09:00→21:00)
[2017-07-24] MEDS: FENOFIBRATE 48 MG TAB PO SCH (09:08)
[2017-07-24] MEDS: FLUoxetine HCL 20 MG CAP PO SCH (09:09)
[2017-07-24] MEDS: oxyCODONE/ACETAMINOPHEN 7.5 MG/325 MG TAB PO PRN ×2 (09:09→21:45)
[2017-07-24] MEDS: SODIUM CHLORIDE 0.9% FLUSH 10 ML FLUSH IV FLUSH SCH ×2 (09:10→21:00)
[2017-07-24] MEDS: INSULIN ASPART SUPPLEMENTAL SCALE SQ SCH ×4 (09:12→21:45)
[2017-07-24] MEDS: SODIUM CHLOR 0.9% 1000 ML INJ 1,000 ML IV SCH ×2 (11:00→21:25)
--- NOTE | 2017-07-24 11:26 | HHI.PR ---
Subjective Patient symptoms today Pt seen and examined. Feeling better. Voiding Objective Vital Signs Vital Signs Date Time Temp Pulse Resp B/P (MAP) Pulse Ox O2 Delivery O2 Flow Rate FiO2 07/24/17 08:00 98.4 99 17 124/73 (90) 95 07/24/17 05:39 98.9 78 20 124/70 (88) 96 07/24/17 00:42 99.2 100 20 130/71 (90) 94 07/23/17 21:00 21 07/23/17 20:00 98.8 78 18 133/72 (92) 94 07/23/17 16:33 92 21 07/23/17 16:00 96.6 101 19 143/74 (97) 93 07/23/17 15:10 97.8 100 16 118/72 (87) 97 Nasal Cannula 3 07/23/17 15:00 103 16 113/69 (84) 96 Nasal Cannula 3 07/23/17 14:45 101 15 110/67 (81) 95 Nasal Cannula 3 07/23/17 14:30 102 15 105/64 (78) 98 Simple Mask 8 07/23/17 14:15 105 14 101/51 (68) 96 Simple Mask 8 07/23/17 14:10 98.6 107 14 100/51 (67) 95 Simple Mask 8 Intake & Output 07/24/17 07/24/17 07:00 19:00 Intake Total 580 ml Output Total 3000 ml Balance -2420 ml Intake Oral 580 ml Output Urine Total 3000 ml Result Diagram: 07/24/1751907/24/17 0520 Objective Remarks Abd:soft,nt,nd Rust out and voiding Medications and IVs Current Medications Medications (Trade) Dose Ordered Sig/Curtis Route Start Time Stop Time Status Last Admin (NS Flush) 2 ml UNSCH PRN IV FLUSH 07/23/17 06:45 (NS Flush) 2 ml BID IV FLUSH 07/23/17 09:00 07/24/17 09:10 (Tylenol) 650 mg Q4H PRN PO 07/23/17 06:45 (Zofran Inj) 4 mg Q6H PRN IVP 07/23/17 06:45 (Narcan Inj) 0.4 mg UNSCH PRN IV PUSH 07/23/17 06:45 (Gela-Colace) 1 tab BID PO 07/23/17 09:00 (Milk Of Magnesia Liq) 30 ml Q12H PRN PO 07/23/17 06:45 (Senokot) 17.2 mg Q12H PRN PO 07/23/17 06:45 (Dulcolax Supp) 10 mg DAILY PRN RECTAL 07/23/17 06:45 (Lactulose Liq) 30 ml DAILY PRN PO 07/23/17 06:45 Lactated Ringer's 1,000 ml @ 30 mls/hr Q24H PRN IV 07/23/17 12:30 07/26/17 12:29 07/23/17 12:19 Sodium Chloride 500 ml @ 30 mls/hr [id number] PRN IV 07/23/17 12:30 07/26/17 12:29 (Lopressor) 25 mg ELECTRONICS MECHANIC APPRENTICE PRN PO 07/23/17 12:30 07/26/17 12:29 (Betadine 5% Antisepsis Kit) 1 applic ELECTRONICS MECHANIC APPRENTICE PRN EACH NARE 07/23/17 12:30 07/26/17 12:29 (Chlorhexidine 2% Cloth) 3 pack ELECTRONICS MECHANIC APPRENTICE PRN TOPICAL 07/23/17 12:30 07/26/17 12:29 07/23/17 12:20 (NovoLIN R INJ) See Protocol Table ... ELECTRONICS MECHANIC APPRENTICE PRN SQ 07/23/17 12:30 07/26/17 12:29 Cefazolin Sodium/ Dextrose 50 ml @ 100 mls/hr Q8H IV 07/23/17 22:00 07/24/17 04:45 Miscellaneous Information ALL NURSING DEPARTME... UNSCH PRN .XX 07/23/17 14:12 07/24/17 14:11 (Percocet 7.5-325 Mg) 1 tab Q6H PRN PO 07/23/17 17:15 07/24/17 09:09 (Morphine Inj) 4 mg Q3H PRN IV PUSH 07/23/17 17:15 (Pravachol) 20 mg HS PO 07/23/17 21:00 07/23/17 22:52 (Tricor) 48 mg DAILY PO 07/24/17 09:00 07/24/17 09:08 (PROzac) 20 mg DAILY PO 07/24/17 09:00 07/24/17 09:09 (D50w (Vial) Inj) 50 ml UNSCH PRN IV PUSH 07/23/17 20:00 (Glucagon Inj) 1 mg UNSCH PRN OTHER 07/23/17 20:00 (NovoLOG SUPPLEMENTAL SCALE) 1 ACHS SLIDING SCALE SQ 07/23/17 21:00 07/24/17 09:12 (Levemir Inj) 10 units HS SQ 07/23/17 21:00 07/23/17 22:53 Sodium Chloride 1,000 ml @ 84 mls/hr [id number] IV 07/24/17 09:30 07/24/17 11:00 Assessment and Plan Assessment and Plan 52 y.o male s/p cysto/stone evacuation with bilateral JJ stent insertion Rust out and voiding Start Flomax; pt with BPH noted on cysto with findings of bladder stones Creatinine maybe at baseline. Pt to call his PCP to find out what his baseline is. If stable, can f/u as outpt. Will need Rx for residual stones. Gabriel Nathan DO Jul 24, 2017 11:26
[2017-07-24 12:00] VITALS: BP 126/73; PULSE 92; RESP 18; TEMP 98.5; O2SAT 94
--- NOTE | 2017-07-24 15:44 | HHI.PR ---
Subjective Remarks Patient denies pain. Afebrile. states feels tired. Objective Vitals Vital Signs Date Time Temp Pulse Resp B/P (MAP) Pulse Ox O2 Delivery O2 Flow Rate FiO2 07/24/17 12:00 98.5 92 18 126/73 (90) 94 07/24/17 08:00 98.4 99 17 124/73 (90) 95 07/24/17 05:39 98.9 78 20 124/70 (88) 96 07/24/17 00:42 99.2 100 20 130/71 (90) 94 07/23/17 21:00 21 07/23/17 20:00 98.8 78 18 133/72 (92) 94 07/23/17 16:33 92 21 07/23/17 16:00 96.6 101 19 143/74 (97) 93 I/O 07/23/17 07/23/17 07/23/17 07/24/17 07/24/17 07/24/17 06:59 14:59 22:59 06:59 14:59 22:59 Intake Total 1000 ml 75 ml 580 ml Output Total 2000 ml 3000 ml Balance 1000 ml -1925 ml -2420 ml Intake Oral 75 ml 580 ml IV Total 1000 ml Output Urine Total 2000 ml 3000 ml # Bowel Movements 0 Result Diagram: 07/24/17 0520 07/24/17 0520 Imaging Last Impressions Abdomen/Pelvis CT 07/23/17 0514 Signed Impressions: Service Date/Time: Sunday, July 23, 2017 05:30 - CONCLUSION: Bilateral obstructive uropathy with calcified ureteral stones in the mid right and distal left ureters. There is bilateral hydronephrosis, left greater than right and there is bilateral gela-nephric stranding of the fat, right greater than left. Jac Graham MD Objective Remarks GENERAL: This is a well-nourished, well-developed patient, in no apparent distress. SKIN: No rashes, ecchymoses or lesions. Warm and dry. HEAD: Atraumatic. Normocephalic. No temporal or scalp tenderness. EYES: Pupils equal round and reactive. No injection or drainage. ENT: Nose without bleeding, purulent drainage or septal hematoma. Airway patent. NECK: Trachea midline. No lymphadenopathy. Supple, nontender, no meningeal signs. CARDIOVASCULAR: Regular rate and rhythm without murmurs, gallops, or rubs. No JVD. RESPIRATORY: Clear to auscultation. Breath sounds equal bilaterally. No wheezes , rales, or rhonchi. GASTROINTESTINAL: Abdomen soft, non-tender, nondistended. No guarding. Mild CVA tenderness. MUSCULOSKELETAL: Extremities without clubbing, cyanosis, or edema. NEUROLOGICAL: Awake and alert. Cranial nerves II through XII intact. No focal neurological deficits. Normal speech. Procedures Status post cystoscopy and bilateral ureteral stent placement, bilateral retrograde, left ureteroscopy with removal of bladder stones. Medications and IVs Current Medications Medications (Trade) Dose Ordered Sig/Curtis Route Start Time Stop Time Status Last Admin (NS Flush) 2 ml UNSCH PRN IV FLUSH 07/23/17 06:45 (NS Flush) 2 ml BID IV FLUSH 07/23/17 09:00 07/24/17 09:10 (Tylenol) 650 mg Q4H PRN PO 07/23/17 06:45 (Zofran Inj) 4 mg Q6H PRN IVP 07/23/17 06:45 (Narcan Inj) 0.4 mg UNSCH PRN IV PUSH 07/23/17 06:45 (Gela-Colace) 1 tab BID PO 07/23/17 09:00 (Milk Of Magnesia Liq) 30 ml Q12H PRN PO 07/23/17 06:45 (Senokot) 17.2 mg Q12H PRN PO 07/23/17 06:45 (Dulcolax Supp) 10 mg DAILY PRN RECTAL 07/23/17 06:45 (Lactulose Liq) 30 ml DAILY PRN PO 07/23/17 06:45 Lactated Ringer's 1,000 ml @ 30 mls/hr Q24H PRN IV 07/23/17 12:30 07/26/17 12:29 07/23/17 12:19 Sodium Chloride 500 ml @ 30 mls/hr [id number] PRN IV 07/23/17 12:30 07/26/17 12:29 (Lopressor) 25 mg SOLVENT PROCESS EXTRACTOR OPERATOR PRN PO 07/23/17 12:30 07/26/17 12:29 (Betadine 5% Antisepsis Kit) 1 applic SOLVENT PROCESS EXTRACTOR OPERATOR PRN EACH NARE 07/23/17 12:30 07/26/17 12:29 (Chlorhexidine 2% Cloth) 3 pack SOLVENT PROCESS EXTRACTOR OPERATOR PRN TOPICAL 07/23/17 12:30 07/26/17 12:29 07/23/17 12:20 (NovoLIN R INJ) See Protocol Table ... SOLVENT PROCESS EXTRACTOR OPERATOR PRN SQ 07/23/17 12:30 07/26/17 12:29 Cefazolin Sodium/ Dextrose 50 ml @ 100 mls/hr Q8H IV 07/23/17 22:00 07/24/17 13:33 (Percocet 7.5-325 Mg) 1 tab Q6H PRN PO 07/23/17 17:15 07/24/17 09:09 (Morphine Inj) 4 mg Q3H PRN IV PUSH 07/23/17 17:15 (Pravachol) 20 mg HS PO 07/23/17 21:00 07/23/17 22:52 (Tricor) 48 mg DAILY PO 07/24/17 09:00 07/24/17 09:08 (PROzac) 20 mg DAILY PO 07/24/17 09:00 07/24/17 09:09 (D50w (Vial) Inj) 50 ml UNSCH PRN IV PUSH 07/23/17 20:00 (Glucagon Inj) 1 mg UNSCH PRN OTHER 07/23/17 20:00 (NovoLOG SUPPLEMENTAL SCALE) 1 ACHS SLIDING SCALE SQ 07/23/17 21:00 07/24/17 13:34 (Levemir Inj) 10 units HS SQ 07/23/17 21:00 07/23/17 22:53 Sodium Chloride 1,000 ml @ 84 mls/hr [id number] IV 07/24/17 09:30 07/24/17 11:00 A/P Problem List: (1) Obstructive uropathy ICD Code: N13.9 - Obstructive and reflux uropathy, unspecified Status: Acute (2) Hydronephrosis ICD Code: N13.30 - Unspecified hydronephrosis (3) Stage 3 chronic kidney disease ICD Code: N18.3 - Chronic kidney disease, stage 3 (moderate) Status: Acute Assessment and Plan Mr. Guzman is a pleasant 52 year old male with a history of multiple kidney stones who presented to the ED on 07/22/2017 due to bilateral flank pain that started around midnight. He also had nausea, vomiting. CT imaging indicated obstructive uropathy. - Bilateral obstructive uropathy - Bilateral hydronephrosis - Pain control with Acetaminophen, Percocet and Morphine for breakthrough. - Bowel regimen in place. - Patient underwent Urological procedure 07/23/2017. - Diabetes mellitus - Patient takes oral meds - Glipizide. - Will initiate Levemir 10 units QHS and sliding scale insulin. - Oral meds upon discharge. - Acute kidney injury - Stage III CKD - Creatinine 2.96. Hold Lisinopril. - Baseline around 2.4. - Patient states called his PCP office and the last creatinine there a month ago was 2.2. Creatinine elevated to 2.9. - Start IV fluids and monitor Bun/Creatinine. - Hypertension - Currently normotensive. If needed, consider Amlodipine 5mg Qday. Full code. SCDs. Discharge Planning DC pending creatinine improvement. Seymour Deal MD Jul 24, 2017 15:44
[2017-07-24 16:00] VITALS: BP 121/68; PULSE 92; RESP 17; TEMP 98.6; O2SAT 99
[2017-07-24 20:00] VITALS: BP 131/79; PULSE 89; RESP 20; TEMP 98.2; O2SAT 98
[2017-07-24] MEDS: INSULIN DETEMIR 100 UNITS/ML VIAL SQ SCH (21:45)
[2017-07-24] MEDS: PRAVASTATIN SOD 20 MG TAB PO SCH (21:46)
[2017-07-25 00:54] VITALS: BP 133/79; PULSE 78; RESP 20; TEMP 98.5; O2SAT 99
[2017-07-25] MEDS: oxyCODONE/ACETAMINOPHEN 7.5 MG/325 MG TAB PO PRN (05:35)
[2017-07-25] MEDS: ceFAZolin 2 GM PREMIX 50 ML IV SCH (05:36)
[2017-07-25] MEDS: SODIUM CHLORIDE 0.9% FLUSH 10 ML FLUSH IV FLUSH SCH (07:33)
[2017-07-25 08:00] VITALS: BP 126/69; PULSE 80; RESP 18; TEMP 97.4; O2SAT 96
[2017-07-25] MEDS: INSULIN ASPART SUPPLEMENTAL SCALE SQ SCH (08:00)
--- NOTE | 2017-07-25 08:41 | HHI.PR ---
Subjective Patient symptoms today Pt seen and examined. Feeling better. Ready for d/c. Voiding well. Objective Vital Signs Vital Signs Date Time Temp Pulse Resp B/P (MAP) Pulse Ox O2 Delivery O2 Flow Rate FiO2 07/25/17 00:54 98.5 78 20 133/79 (97) 99 07/24/17 23:00 20 07/24/17 20:00 98.2 89 20 131/79 (96) 98 07/24/17 16:00 98.6 92 17 121/68 (85) 99 07/24/17 12:00 98.5 92 18 126/73 (90) 94 Intake & Output 07/25/17 07/25/17 07:00 19:00 Intake Total 580 ml Output Total 1800 ml Balance -1220 ml Intake Oral 580 ml Output Urine Total 1800 ml Result Diagram: 07/24/1751907/24/17519 Objective Remarks Abd:soft,nt,nd Rust out and voiding 07/25 Abd:soft,nt,nd Voiding well. Medications and IVs Current Medications Medications (Trade) Dose Ordered Sig/Curtis Route Start Time Stop Time Status Last Admin (NS Flush) 2 ml UNSCH PRN IV FLUSH 07/23/17 06:45 (NS Flush) 2 ml BID IV FLUSH 07/23/17 09:00 07/24/17 09:10 (Tylenol) 650 mg Q4H PRN PO 07/23/17 06:45 (Zofran Inj) 4 mg Q6H PRN IVP 07/23/17 06:45 (Narcan Inj) 0.4 mg UNSCH PRN IV PUSH 07/23/17 06:45 (Gela-Colace) 1 tab BID PO 07/23/17 09:00 (Milk Of Magnesia Liq) 30 ml Q12H PRN PO 07/23/17 06:45 (Senokot) 17.2 mg Q12H PRN PO 07/23/17 06:45 (Dulcolax Supp) 10 mg DAILY PRN RECTAL 07/23/17 06:45 (Lactulose Liq) 30 ml DAILY PRN PO 07/23/17 06:45 Lactated Ringer's 1,000 ml @ 30 mls/hr Q24H PRN IV 07/23/17 12:30 07/26/17 12:29 07/23/17 12:19 Sodium Chloride 500 ml @ 30 mls/hr [id number] PRN IV 07/23/17 12:30 07/26/17 12:29 (Lopressor) 25 mg TAX COMPLIANCE OFFICER PRN PO 07/23/17 12:30 07/26/17 12:29 (Betadine 5% Antisepsis Kit) 1 applic TAX COMPLIANCE OFFICER PRN EACH NARE 07/23/17 12:30 07/26/17 12:29 (Chlorhexidine 2% Cloth) 3 pack TAX COMPLIANCE OFFICER PRN TOPICAL 07/23/17 12:30 07/26/17 12:29 07/23/17 12:20 (NovoLIN R INJ) See Protocol Table ... TAX COMPLIANCE OFFICER PRN SQ 07/23/17 12:30 07/26/17 12:29 Cefazolin Sodium/ Dextrose 50 ml @ 100 mls/hr Q8H IV 07/23/17 22:00 07/25/17 05:36 (Percocet 7.5-325 Mg) 1 tab Q6H PRN PO 07/23/17 17:15 07/25/17 05:35 (Morphine Inj) 4 mg Q3H PRN IV PUSH 07/23/17 17:15 (Pravachol) 20 mg HS PO 07/23/17 21:00 07/24/17 21:46 (Tricor) 48 mg DAILY PO 07/24/17 09:00 07/24/17 09:08 (PROzac) 20 mg DAILY PO 07/24/17 09:00 07/24/17 09:09 (D50w (Vial) Inj) 50 ml UNSCH PRN IV PUSH 07/23/17 20:00 (Glucagon Inj) 1 mg UNSCH PRN OTHER 07/23/17 20:00 (NovoLOG SUPPLEMENTAL SCALE) 1 ACHS SLIDING SCALE SQ 07/23/17 21:00 07/24/17 21:45 (Levemir Inj) 10 units HS SQ 07/23/17 21:00 07/24/17 21:45 Sodium Chloride 1,000 ml @ 84 mls/hr [id number] IV 07/24/17 09:30 07/24/17 21:25 Assessment and Plan Assessment and Plan 52 y.o male s/p cysto/stone evacuation with bilateral JJ stent insertion Rust out and voiding Start Flomax; pt with BPH noted on cysto with findings of bladder stones Creatinine maybe at baseline. Pt to call his PCP to find out what his baseline is. If stable, can f/u as outpt. Will need Rx for residual stones. 07/25 Stable s/p cysto with b/l JJ stent insertion Continue Flomax as outpt Will need possible URS with laser lithotripsy followed by ESWL in the future as outpt. Gabriel Nathan DO Jul 25, 2017 08:41
[2017-07-25 08:52] LABS: BICARBONATE 22.9 MEQ/L (21.0-32.0); CALCIUM 8.4 MG/DL (8.5-10.1); CREATININE 2.27 MG/DL (0.60-1.30)
[2017-07-25] MEDS: DOCUSATE SODIUM 50 MG/SENNA 8.6 MG TAB PO SCH (09:00)
[2017-07-25 09:08] VITALS: O2SAT 93
[2017-07-25] MEDS: FENOFIBRATE 48 MG TAB PO SCH (09:38)
[2017-07-25] MEDS: FLUoxetine HCL 20 MG CAP PO SCH (09:38)
--- NOTE | 2017-07-25 10:49 | HHI.DCPOC ---
Discharge Care Plan Diagnosis: (1) Hydronephrosis (2) Stage 3 chronic kidney disease (3) Bilateral ureteral calculi (4) Obstructive uropathy (5) Renal insufficiency (6) Ureteral colic Goals to Promote Your Health * To prevent worsening of your condition and complications * To maintain your health at the optimal level Directions to Meet Your Goals Take your medications as prescribed Follow your dietary instruction Follow activity as directed Keep your appointments as scheduled Take your immunizations and boosters as scheduled If your symptoms worsen call your PCP, if no PCP go to Urgent Care Center or Emergency Room Smoking is Dangerous to Your Health. Avoid second hand smoke Call the 24-hour hour crisis hotline for domestic abuse at Seymour Deal MD Jul 25, 2017 10:49
--- NOTE | 2017-07-25 11:01 | HHI.DS ---
Discharge Summary Admission Date Jul 23, 2017 at 06:49 Discharge Date: Jul 25, 2017 Admitting Diagnosis obstructive uropathy, bilateral ureteral stone, ureteral colic (1) Obstructive uropathy ICD Code: N13.9 - Obstructive and reflux uropathy, unspecified Diagnosis: Principal Status: Resolved (2) Hydronephrosis ICD Code: N13.30 - Unspecified hydronephrosis Diagnosis: Principal Status: Resolved (3) Stage 3 chronic kidney disease ICD Code: N18.3 - Chronic kidney disease, stage 3 (moderate) Diagnosis: Principal Status: Chronic (4) Acute renal failure (ARF) ICD Code: N17.9 - Acute kidney failure, unspecified Diagnosis: Principal Status: Resolved (5) Bilateral ureteral calculi ICD Code: N20.1 - Calculus of ureter Diagnosis: Principal Status: Acute (6) Renal insufficiency ICD Code: N28.9 - Disorder of kidney and ureter, unspecified Diagnosis: Principal Status: Chronic (7) Ureteral colic ICD Code: N23 - Unspecified renal colic Diagnosis: Principal Status: Resolved Procedures Status post cystoscopy and bilateral ureteral stent placement, bilateral retrograde, left ureteroscopy with removal of bladder stones. Brief History - From Admission Mr. Vegas is a pleasant 52 year old male with a history of previous kidney stones who presented to the ED on 07/22/2017 due to sudden onset of bilateral flank pain that started around midnight on 07/22/2017. No fever, chills but he started having nausea, vomiting which led to this admission. He did not take any medication to make his symptoms any better. He has a history of kidney stone and he is familiar with his symptoms. He denies any chest pain, shortness of breath. No changes. On arrival, patient was somewhat tachycardic. WBC is elevated to 14.7K. CBC/BMP: 07/24/17 0520 07/25/17 0618 Significant Findings Laboratory Tests Test 07/23/17 05:25 07/23/17 11:35 07/24/17 05:20 07/25/17 06:18 White Blood Count 14.7 TH/MM3 (4.0-11.0) 15.2 TH/MM3 (4.0-11.0) Mean Platelet Volume 6.7 FL (7.0-11.0) 6.9 FL (7.0-11.0) Neutrophils (%) (Auto) 81.3 % (16.0-70.0) 87.5 % (16.0-70.0) Neutrophils # (Auto) 12.0 TH/MM3 (1.8-7.7) 13.3 TH/MM3 (1.8-7.7) Monocytes # (Auto) 1.0 TH/MM3 (0-0.9) Blood Urea Nitrogen 39 MG/DL (7-18) 35 MG/DL (7-18) 32 MG/DL (7-18) Creatinine 2.96 MG/DL (0.60-1.30) 2.98 MG/DL (0.60-1.30) 2.27 MG/DL (0.60-1.30) Random Glucose 274 MG/DL (74-106) 170 MG/DL (74-106) 133 MG/DL (74-106) Estimat Glomerular Filtration Rate 23 ML/MIN (>89) 22 ML/MIN (>89) 31 ML/MIN (>89) Urine Glucose (UA) 300 mg/dL (NEG) Urine Occult Blood MOD (NEG) Urine Mucus FEW /lpf (OCC) Red Blood Count 4.43 MIL/MM3 (4.50-5.90) Hematocrit 38.2 % (39.0-51.0) Lymphocytes (%) (Auto) 6.5 % (9.0-44.0) Calcium Level 8.4 MG/DL (8.5-10.1) Imaging Last Impressions Abdomen/Pelvis CT 07/23/17 0514 Signed Impressions: Service Date/Time: Sunday, July 23, 2017 05:30 - CONCLUSION: Bilateral obstructive uropathy with calcified ureteral stones in the mid right and distal left ureters. There is bilateral hydronephrosis, left greater than right and there is bilateral marcus-nephric stranding of the fat, right greater than left. Jac Graham MD PE at Discharge GENERAL: This is a well-nourished, well-developed patient, in no apparent distress. SKIN: No rashes, ecchymoses or lesions. Warm and dry. HEAD: Atraumatic. Normocephalic. No temporal or scalp tenderness. EYES: Pupils equal round and reactive. No injection or drainage. ENT: Nose without bleeding, purulent drainage or septal hematoma. Airway patent. NECK: Trachea midline. No lymphadenopathy. Supple, nontender, no meningeal signs. CARDIOVASCULAR: Regular rate and rhythm without murmurs, gallops, or rubs. No JVD. RESPIRATORY: Clear to auscultation. Breath sounds equal bilaterally. No wheezes , rales, or rhonchi. GASTROINTESTINAL: Abdomen soft, non-tender, nondistended. No guarding. Mild CVA tenderness. MUSCULOSKELETAL: Extremities without clubbing, cyanosis, or edema. NEUROLOGICAL: Awake and alert. Cranial nerves II through XII intact. No focal neurological deficits. Normal speech. Pt update on day of discharge Denies chest pain, sob. Urinating well. Afebrile. Hospital Course Mr. Guzman is a pleasant 52 year old male with a history of multiple kidney stones who presented to the ED on 07/22/2017 due to bilateral flank pain that started around midnight. He also had nausea, vomiting. CT imaging indicated obstructive uropathy. Bilateral obstructive uropathy Bilateral hydronephrosis She was admitted to the medical floor. Pain control was provided with acetaminophen, Percocet and morphine IV for breakthrough. Bowel regimen instituted in place. Patient is status post cystoscopy and bilateral ureteral stent placement, bilateral retrograde, left ureteroscopy with removal of bladder stones. Cleared by urology to be discharged. As per neurology recommendations the patient will need possible URS with laser lithotripsy followed by ESWL in the future as outpt. Diabetes mellitus Glipizide was held on admission. The patient was started on 10 units of sliding scale at bedtime. Discharge on oral medications upon discharge. Checks were monitored with blood sugars initially severely elevated, however blood sugars improved by discharge date. The patient was also placed on a sliding scale with insulin NovoLog. Acute kidney injury Stage III CKD Creatinine elevated at 2.96 on admission. Lisinopril was held given elevated creatinine. The patient states is baseline creatinine around 2.2 months ago. Patient's creatinine remained elevated at 2.9 even after bilateral ureteral stent placement. Acute kidney injury resolved after IV fluid administration. Creatinine went back to baseline at 2.2 prior to discharge. Hypertension Lisinopril held on admission. However creatinine back to baseline. Will resume upon discharge. Full code. SCDs. Pt Condition on Discharge: Stable Discharge Disposition: Discharge Home Discharge Time: <= 30 minutes Discharge Instructions DIET: Follow Instructions for: Diabetic Diet, Renal Failure Diet Activities you can perform: Regular-No Restrictions Activities to Avoid: Contact Sports, Strenuous Activity Follow up Referrals: Nephrology PCP Follow-up - 2 Weeks Urology - 2 Weeks with Gabriel Nathan DO Continued Medications: Fenofibrate (Fenofibrate) 40 Mg Tab Unknown Dose PO DAILY, #30 TAB 0 Refills Fluoxetine (Fluoxetine) 20 Mg Capsule 20 MG PO DAILY, #30 CAP 0 Refills Glipizide (Glipizide) 10 Mg Tab 10 MG PO BIDAC for Blood Sugar Management, #60 TAB 0 Refills Take 30 minutes before a meal Lisinopril (Lisinopril) 10 Mg Tab 10 MG PO DAILY, #30 TAB 0 Refills Lovastatin (Lovastatin) 10 Mg Tab Unknown Dose PO DAILY for Cholesterol Management, #30 TAB 0 Refills Oxycodone-Acetaminophen (Percocet) 5-325 mg Tab 1 TAB PO Q6H PRN for PAIN, #10 TAB 0 Refills Sumatriptan (Sumatriptan) 50 Mg Tab 50 MG PO ONCE PRN for MIGRAINE HEADACHE, TAB 0 Refills If a satisfactory response has not been obtained at 2 hours, a second dose may be administered [cholesterol pill] () Discontinued Medications: Tramadol (Tramadol) 50 Mg Tab 50 MG PO Q6H PRN for PAIN, TAB 0 Refills Seymuor Deal MD Jul 25, 2017 11:01
[2017-07-25] MEDS ORDERED: TAMS5CAP PO (11:33)
== END 2017-07-25 12:07 | disposition home or self-care (01) | DRG 694 ==
LOC: NEPC 04:51 → NEDA 06:49 → N07A 15:25
PROVIDERS: ADMIT Hospitalist; ATTEND Hospitalist
PROC: 0T788DZ Dilation of Bilateral Ureters with Intraluminal Device, Via Natural or Artificial Opening Endoscopic (ICD-10-PCS; 2017-07-23)
PROC: BT141ZZ Fluoroscopy of Kidneys, Ureters and Bladder using Low Osmolar Contrast (ICD-10-PCS; 2017-07-23)
PROC: 0TCB8ZZ Extirpation of Matter from Bladder, Via Natural or Artificial Opening Endoscopic (ICD-10-PCS; principal; 2017-07-23 12:50)
DX: N13.2 Hydronephrosis with renal and ureteral calculous obstruction (principal); N17.9 Acute kidney failure, unspecified; E11.22 Type 2 diabetes mellitus with diabetic chronic kidney disease; N18.3 Chronic kidney disease, stage 3 (moderate); N21.0 Calculus in bladder; N40.0 Benign prostatic hyperplasia without lower urinary tract symptoms; I12.9 Hypertensive chronic kidney disease with stage 1 through stage 4 chronic kidney disease, or unspecified chronic kidney disease; F17.210 Nicotine dependence, cigarettes, uncomplicated; F32.9 Major depressive disorder, single episode, unspecified; Z87.442 Personal history of urinary calculi; Z79.84 Long term (current) use of oral hypoglycemic drugs
CPT/HCPCS: 74176; 74420; 80048; 81001; 82948; 85025; 96361; 96374; 96375; C1769; J0330; J0690; J1100; J1170; J1815; J2370; J2405; J3010; J7030; J7120

== ENCOUNTER 2017-08-05 17:22 | Emergency (ER) | payer SELFPAY ==
[~2017-08-05] VITALS: Ht 193 cm; Wt 136.4 kg
[~2017-08-05 17:22] MED LIST changes: +TAMS5CAP PO; -TRAM50TA PO
[2017-08-05 17:23] VITALS: BP 146/93; PULSE 100; RESP 20; TEMP 98; O2SAT 98
[2017-08-05 18:05] LABS: AUTOMATED NEUTROPHIL # 8.9 TH/MM3 (1.8-7.7); BASOPHIL # 0.1 TH/MM3 (0-0.2); EOSINOPHIL # 0.3 TH/MM3 (0-0.4); EOSINOPHIL % 2.1 % (0.0-4.0); HEMATOCRIT 39.8 % (39.0-51.0); HEMOGLOBIN 13.8 GM/DL (13.0-17.0); LYMPHOCYTE # 2.2 TH/MM3 (1.0-4.8); MEAN CELL VOLUME 87.4 FL (80.0-100.0); MEAN CORPUSCULAR HEMOGLOBIN 30.3 PG (27.0-34.0); MEAN CORPUSCULAR HGB CONC 34.7 % (32.0-36.0); MONO % 5.6 % (0.0-8.0); MONOCYTE # 0.7 TH/MM3 (0-0.9); NEUT % 73.3 % (16.0-70.0); PLATELET COUNT 374 TH/MM3 (150-450); RED BLOOD COUNT 4.55 MIL/MM3 (4.50-5.90); RED CELL DISTRIBUTION WIDTH 14.8 % (11.6-17.2); WHITE BLOOD COUNT 12.1 TH/MM3 (4.0-11.0)
[2017-08-05 19:15] VITALS: BP 128/74; PULSE 97; RESP 18; O2SAT 99
[2017-08-05 19:19] LABS: BACTERIA, URINE OCC /hpf; BILIRUBIN, URINE NEG (NEG); BLOOD, URINE LARGE (NEG); GLUCOSE,URINE TRACE mg/dL (NEG); KETONE, URINE NEG (NEG); MUCUS URINE FEW /lpf (OCC); NITRITE,URINE NEG (NEG); PH, URINE 5.5 (5.0-8.5); URINE COLOR YELLOW (YELLW/STRAW); URINE LEUKOCYTE ESTERASE MOD (NEG)
[2017-08-05] MEDS ORDERED: KETOROLAC TROMETHAMINE 30 MG/ML (IVP) VIAL IV PUSH ONE (19:30)
[2017-08-05] MEDS ORDERED: SODIUM CHLOR 0.9% 1000 ML INJ 1,000 ML IV ONE (19:30)
--- NOTE | 2017-08-05 19:41 | PD ---
HPI Chief Complaint: Flank/Kidney Pain Time Seen by Provider: 19:06 Travel History International Travel<30 days: No Contact w/Intl Traveler<30days: No Traveled to known affect area: No History of Present Illness HPI Patient is a 52-year-old male presenting to the emergency evaluation of right flank pain. Patient states he was admitted to the hospital last week with kidney stones, he had been feeling well until the last 3-4 hours when the pain returned abruptly. He reports hematuria, he denies any dysuria, nausea, vomiting, fevers. Onset of symptoms was sudden, there are no alleviating factors. Pain is exacerbated with movement. He reports his pain is currently a 6 out of 10 and sharp. PFSH Past Medical History Hx Anticoagulant Therapy: Yes (ASPIRIN) Anxiety: Yes Depression: Yes High Cholesterol: Yes Diabetes: Yes Endocrine: Yes Gastrointestinal Disorders: Yes Headaches: Yes Hypertension: Yes Kidney Stones: Yes Psychiatric: Yes Migraines: Yes Renal Failure: Yes Sleep Apnea: Yes Past Surgical History Appendectomy: Yes Genitourinary Surgery: Yes (lithotripsy) Joint Replacement: Yes (3 neck spacers replacement of vertebrae) Tonsillectomy: Yes Other Surgery: Yes Social History Alcohol Use: Yes (OCC) Tobacco Use: Yes (1 PPD) Substance Use: No Allergies-Medications (Allergen,Severity, Reaction): Coded Allergies: No Known Allergies (Unverified Allergy, Unknown, 08/05/17) Reported Meds & Prescriptions Reported Meds & Active Scripts Active Flomax (Tamsulosin HCl) 0.4 Mg Cap 0.4 Mg PO HS Percocet (Oxycodone-Acetaminophen) 5-325 mg Tab 1 Tab PO Q6H PRN Reported Fluoxetine (Fluoxetine HCl) 20 Mg Capsule 20 Mg PO DAILY Fenofibrate 40 Mg Tab Unknown Dose PO DAILY Lovastatin 10 Mg Tab Unknown Dose PO DAILY [cholesterol pill] Sumatriptan (Sumatriptan Succinate) 50 Mg Tab 50 Mg PO ONCE PRN If a satisfactory response has not been obtained at 2 hours, a second dose may be administered Lisinopril 10 Mg Tab 10 Mg PO DAILY Glipizide 10 Mg Tab 10 Mg PO BIDAC Take 30 minutes before a meal Review of Systems Except as stated in HPI: all other systems reviewed are Neg General / Constitutional: No: Fever, Chills HENT: No: Headaches Cardiovascular: No: Chest Pain or Discomfort Respiratory: No: Shortness of Breath Gastrointestinal: No: Nausea, Vomiting, Abdominal Pain Genitourinary: Positive: Hematuria, Flank Pain Physical Exam Narrative GENERAL: Overweight, well-developed, alert male. Presenting in no acute distress. SKIN: Warm and dry. HEAD: Atraumatic. Normocephalic. EYES: Pupils equal and round. No scleral icterus. No injection or drainage. ENT: No nasal bleeding or discharge. Mucous membranes pink and moist. NECK: Trachea midline. No JVD. CARDIOVASCULAR: Regular rate and rhythm. RESPIRATORY: No accessory muscle use. Clear to auscultation. Breath sounds equal bilaterally. GASTROINTESTINAL: Abdomen soft, non-tender, nondistended. Hepatic and splenic margins not palpable. MUSCULOSKELETAL: Extremities without clubbing, cyanosis, or edema. No obvious deformities. Tenderness to palpation in the right flank. No CVAT bilaterally. NEUROLOGICAL: Awake and alert. No obvious cranial nerve deficits. Motor grossly within normal limits. Five out of 5 muscle strength in the arms and legs. Normal speech. PSYCHIATRIC: Appropriate mood and affect; insight and judgment normal. Data Data Last Documented VS Vital Signs Date Time Temp Pulse Resp B/P (MAP) Pulse Ox O2 Delivery O2 Flow Rate FiO2 08/05/17 19:15 97 18 128/74 (92) 99 Room Air 08/05/17 17:23 98.0 Orders Orders Complete Blood Count With Diff (08/05/17 17:29) Urinalysis - C+S If Indicated (08/05/17 17:29) Urine Culture (08/05/17 18:40) Sodium Chlor 0.9% 1000 Ml Inj (Ns 1000 M (08/05/17 19:30) Ketorolac Inj (Toradol Inj) (08/05/17 19:30) Ct Abd/Pel W/O Iv Contrast (08/05/17 ) Comprehensive Metabolic Panel (08/05/17 19:29) Ceftriaxone Inj (Rocephin Inj) (08/05/17 21:15) Mandatory Outpatient Referral (08/05/17 21:10) Labs Laboratory Tests Test 08/05/17 17:49 08/05/17 18:40 08/05/17 19:35 White Blood Count 12.1 TH/MM3 Red Blood Count 4.55 MIL/MM3 Hemoglobin 13.8 GM/DL Hematocrit 39.8 % Mean Corpuscular Volume 87.4 FL Mean Corpuscular Hemoglobin 30.3 PG Mean Corpuscular Hemoglobin Concent 34.7 % Red Cell Distribution Width 14.8 % Platelet Count 374 TH/MM3 Mean Platelet Volume 7.0 FL Neutrophils (%) (Auto) 73.3 % Lymphocytes (%) (Auto) 18.0 % Monocytes (%) (Auto) 5.6 % Eosinophils (%) (Auto) 2.1 % Basophils (%) (Auto) 1.0 % Neutrophils # (Auto) 8.9 TH/MM3 Lymphocytes # (Auto) 2.2 TH/MM3 Monocytes # (Auto) 0.7 TH/MM3 Eosinophils # (Auto) 0.3 TH/MM3 Basophils # (Auto) 0.1 TH/MM3 CBC Comment DIFF FINAL Differential Comment Urine Color YELLOW Urine Turbidity HAZY Urine pH 5.5 Urine Specific [place] 1.014 Urine Protein 30 mg/dL Urine Glucose (UA) TRACE mg/dL Urine Ketones NEG mg/dL Urine Occult Blood LARGE Urine Nitrite NEG Urine Bilirubin NEG Urine Urobilinogen LESS THAN 2.0 MG/DL Urine Leukocyte Esterase MOD Urine RBC /hpf Urine WBC 17 /hpf Urine Bacteria OCC /hpf Urine Mucus FEW /lpf Microscopic Urinalysis Comment CULTURE INDICATED Blood Urea Nitrogen 34 MG/DL Creatinine 2.37 MG/DL Random Glucose 106 MG/DL Total Protein 8.9 GM/DL Albumin 4.5 GM/DL Calcium Level 9.5 MG/DL Alkaline Phosphatase 76 U/L Aspartate Amino Transf (AST/SGOT) 39 U/L Alanine Aminotransferase (ALT/SGPT) 62 U/L Total Bilirubin 0.4 MG/DL Sodium Level 135 MEQ/L Potassium Level 3.8 MEQ/L Chloride Level 100 MEQ/L Carbon Dioxide Level 25.8 MEQ/L Anion Gap 9 MEQ/L Estimat Glomerular Filtration Rate 29 ML/MIN [facility] Medical Decision Making Medical Screen Exam Complete: Yes Emergency Medical Condition: Yes Medical Record Reviewed: Yes Interpretation(s) Last Impressions Abdomen/Pelvis CT 08/05/17 0000 Signed Impressions: Service Date/Time: Saturday, August 05, 2017 19:50 - CONCLUSION: 1. There are now double-J ureteral stents in place and in good position. The previously noted bilateral hydronephrosis has resolved. 2. There continue to be nonobstructing bilateral kidney stones. 3. A few small stone fragments are seen adjacent to the mid to distal right ureteral stent. 4. Diffuse fatty infiltration of the liver which appears to be enlarged. 5. Otherwise, no other new or significant changes compared to the prior study. Thomas Porter MD Laboratory Tests Test 08/05/17 17:49 08/05/17 18:40 08/05/17 19:35 White Blood Count 12.1 TH/MM3 Red Blood Count 4.55 MIL/MM3 Hemoglobin 13.8 GM/DL Hematocrit 39.8 % Mean Corpuscular Volume 87.4 FL Mean Corpuscular Hemoglobin 30.3 PG Mean Corpuscular Hemoglobin Concent 34.7 % Red Cell Distribution Width 14.8 % Platelet Count 374 TH/MM3 Mean Platelet Volume 7.0 FL Neutrophils (%) (Auto) 73.3 % Lymphocytes (%) (Auto) 18.0 % Monocytes (%) (Auto) 5.6 % Eosinophils (%) (Auto) 2.1 % Basophils (%) (Auto) 1.0 % Neutrophils # (Auto) 8.9 TH/MM3 Lymphocytes # (Auto) 2.2 TH/MM3 Monocytes # (Auto) 0.7 TH/MM3 Eosinophils # (Auto) 0.3 TH/MM3 Basophils # (Auto) 0.1 TH/MM3 CBC Comment DIFF FINAL Differential Comment Urine Color YELLOW Urine Turbidity HAZY Urine pH 5.5 Urine Specific [place] 1.014 Urine Protein 30 mg/dL Urine Glucose (UA) TRACE mg/dL Urine Ketones NEG mg/dL Urine Occult Blood LARGE Urine Nitrite NEG Urine Bilirubin NEG Urine Urobilinogen LESS THAN 2.0 MG/DL Urine Leukocyte Esterase MOD Urine RBC /hpf Urine WBC 17 /hpf Urine Bacteria OCC /hpf Urine Mucus FEW /lpf Microscopic Urinalysis Comment CULTURE INDICATED Blood Urea Nitrogen 34 MG/DL Creatinine 2.37 MG/DL Random Glucose 106 MG/DL Total Protein 8.9 GM/DL Albumin 4.5 GM/DL Calcium Level 9.5 MG/DL Alkaline Phosphatase 76 U/L Aspartate Amino Transf (AST/SGOT) 39 U/L Alanine Aminotransferase (ALT/SGPT) 62 U/L Total Bilirubin 0.4 MG/DL Sodium Level 135 MEQ/L Potassium Level 3.8 MEQ/L Chloride Level 100 MEQ/L Carbon Dioxide Level 25.8 MEQ/L Anion Gap 9 MEQ/L Estimat Glomerular Filtration Rate 29 ML/MIN Vital Signs Date Time Temp Pulse Resp B/P (MAP) Pulse Ox O2 Delivery O2 Flow Rate FiO2 08/05/17 19:15 97 18 128/74 (92) 99 Room Air 08/05/17 17:23 98.0 100 20 146/93 (110) 98 Room Air Differential Diagnosis Kidney stone versus urethral obstruction versus pyelonephritis versus o metabolic abnormality versus other Narrative Course Patient is a 52-year-old male that presented to emergency department for evaluation of flank pain and urinary symptoms. He has a history of kidney stones, he was recently admitted and seen by urology. Patient was seen by Dr. Nathan, he had bilateral JJ stent insertion during his last admission in June. Progress note stated that patient will need possible URS with laser lithotripsy followed by [facility] in the future. Labs and imaging ordered and pending. Patient was given Toradol for pain as well as a liter of IV fluids. End of the abdomen and pelvis shows double J ureteral stents in place and in good position. Previously noted bilateral hydronephrosis has resolved. Secondary to be nonobstructing bilateral kidney stones. There are a few small stone fragments seen adjacent to the mid to distal right ureteral stent. Diffuse fatty infiltration of the liver which appears to be enlarged. Otherwise no other new or significant changes when compared to prior. CBC with white count of 12.1, this is improved when compared to prior. Chemistry with a BUN and creatinine of 34/2.37, this is stable when compared to prior. Urinalysis is consistent with a urinary tract infection, reflux culture pending. Patient will be given 1 g of Rocephin in the emergency department, he will be discharged home with a full course of antibiotic therapy. Mandatory referral has been made for him to follow-up with Dr. Nathan as outpatient. Labs , imaging, exam findings discussed with my attending physician as well as plan of care. Patient is on findings and plan of care. He is agreeable, he appears well has been resting comfortably. Patient is stable for discharge. Diagnosis Primary Impression: Urinary tract infection Qualified Codes: N39.0 - Urinary tract infection, site not specified; R31.9 - Hematuria, unspecified Additional Impression: Stage 3 chronic kidney disease Referrals: Gabriel Nathan DO 3 days Primary Care Physician Patient Instructions: General Instructions, Urinary Tract Infection in Men (DC) Additional Instructions: Follow-up with Dr. Nathan, mandatory referral has been made for you Follow-up with your primary doctor Maintain adequate fluid intake Complete full course of antibiotics as prescribed Return to emergency department for any new or worsening symptoms Med/Other Pt SpecificInfo: Prescription(s) given Scripts Oxycodone-Acetaminophen (Percocet) 5-325 mg Tab 1 TAB PO Q6H Y for PAIN, #7 TAB 0 Refills Prov: Wen Rivera 08/05/17 Cephalexin (Keflex) 500 Mg Cap 500 MG PO Q12H for Infection for 7 Days, #14 CAP 0 Refills Prov: Wen Rivera 08/05/17 Disposition: 01 DISCHARGE HOME Condition: Stable Wen Rivera Aug 05, 2017 19:41
--- NOTE | 2017-08-05 20:06 | RADRPT ---
EXAM DATE/TIME: 08/05/2017 19:50 [facility] COMPARISON: CT ABDOMEN & PELVIS W/O CONTRAST, July 23, 2017, 5:30. INDICATIONS : Right flank pain, urinary frequency. ORAL CONTRAST: No oral contrast ingested. RADIATION DOSE: 20.82 CTDIvol (mGy) MEDICAL HISTORY : Renal calculi. Cardiovascular disease. Diabetes. SURGICAL HISTORY : Appendectomy. Bilateral ureteral stents. ENCOUNTER: Initial ACUITY: 1 day PAIN SCALE: 10/10 LOCATION: Right flank TECHNIQUE: Volumetric scanning of the abdomen and pelvis was performed. Using automated exposure control and ad justment of the mA and/or kV according to patient size, radiation dose was kept as low as reasonably achievable to obtain optimal diagnostic quality images. DICOM format image data is available electro nically for review and comparison. The lack of IV contrast limits the diagnosis for certain organ pa thology. FINDINGS: LOWER LUNGS: The visualized lower lungs are clear. LIVER: Homogeneous density without lesion the liver appears to be enlarged with fatty infiltration.. There is no dilation of the biliary tree. No calcified gallstones. No significant change compared to the p rior study. SPLEEN: Normal size without lesion. PANCREAS: Within normal limits. KIDNEYS: There are now bilateral double-J ureteral stents in place. Previously noted hydronephrosis of both co llecting systems has improved. No significant hydronephrosis is seen at this time. There is a 2 mm no t affecting stone in the midpole the right kidney. There is a 5 mm nonobstructing stone in the lower pole the right kidney. There is an 8 mm stone in the lower pole the left kidney. The ureters are nond ilated. A few small stone fragments are seen adjacent to the mid to distal right double-J stent. ADRENAL GLANDS: Within normal limits. VASCULAR: There is no aortic aneurysm. BOWEL/MESENTERY: The stomach, small bowel, and colon demonstrate no acute abnormality. There is no free intraperitone al air or fluid. No inflammatory changes. ABDOMINAL WALL: Within normal limits. RETROPERITONEUM: There is no lymphadenopathy. BLADDER: No wall thickening or mass. There are double-J stents in the urinary bladder. No definite stones are seen. REPRODUCTIVE: Within normal limits. INGUINAL: There is no lymphadenopathy or hernia. MUSCULOSKELETAL: Within normal limits for patient age. CONCLUSION: 1. There are now double-J ureteral stents in place and in good position. The previously noted bilater al hydronephrosis has resolved. 2. There continue to be nonobstructing bilateral kidney stones. 3. A few small stone fragments are seen adjacent to the mid to distal right ureteral stent. 4. Diffuse fatty infiltration of the liver which appears to be enlarged. 5. Otherwise, no other new or significant changes compared to the prior study. Thomas Porter MD on August 05, 2017 at 19:59 Board Certified Radiologist. This report was verified electronically.
[2017-08-05 20:50] LABS: ALBUMIN 4.5 GM/DL (3.4-5.0); AST (GOT) 39 U/L (15-37); BICARBONATE 25.8 MEQ/L (21.0-32.0); BLOOD UREA NITROGEN 34 MG/DL (7-18); CALCIUM 9.5 MG/DL (8.5-10.1); CHLORIDE 100 MEQ/L (98-107); CREATININE 2.37 MG/DL (0.60-1.30); GLOMERULAR FILTRATION RATE 29 ML/MIN (>89); GLUCOSE,RANDOM 106 MG/DL (74-106); SODIUM (NA) 135 MEQ/L (136-145)
[2017-08-05 20:53] LABS: ALKALINE PHOSPHATASE 76 U/L (45-117); ALT (GPT) 62 U/L (12-78); TOTAL BILIRUBIN ADULT 0.4 MG/DL (0.2-1.0); TOTAL PROTEIN 8.9 GM/DL (6.4-8.2)
[2017-08-05] MEDS ORDERED: cefTRIAXone INJ 1,000 MG in SODIUM CHLORIDE 0.9% INJ 100 ML IV ONE (21:15)
[2017-08-05] MEDS ORDERED: CEPH-460 PO (21:18)
[2017-08-05] MEDS ORDERED: PERC5TAB12 PO (21:19)
== END 2017-08-05 21:53 | disposition home or self-care (01) ==
LOC: NEPD 17:22
DX: N39.0 Urinary tract infection, site not specified (principal); I12.9 Hypertensive chronic kidney disease with stage 1 through stage 4 chronic kidney disease, or unspecified chronic kidney disease; N18.3 Chronic kidney disease, stage 3 (moderate); E11.22 Type 2 diabetes mellitus with diabetic chronic kidney disease; E78.00 Pure hypercholesterolemia, unspecified; F17.200 Nicotine dependence, unspecified, uncomplicated; Z79.84 Long term (current) use of oral hypoglycemic drugs
CPT/HCPCS: 74176; 80053; 81001; 85025; 87086; 96361; 96374; 96375; 99284; J0696; J1885; J7030

== ENCOUNTER 2017-08-19 20:37 | Emergency (ER) | payer SELFPAY ==
[~2017-08-19] VITALS: Ht 193 cm; Wt 136.4 kg
[~2017-08-19 20:37] MED LIST changes: +CEPH-460 PO
[2017-08-19 20:43] VITALS: BP 148/79; PULSE 110; RESP 20; TEMP 98.4; O2SAT 98
[2017-08-19 21:49] LABS: AUTOMATED NEUTROPHIL # 9.4 TH/MM3 (1.8-7.7); BASOPHIL # 0.1 TH/MM3 (0-0.2); EOSINOPHIL # 0.3 TH/MM3 (0-0.4); EOSINOPHIL % 2.1 % (0.0-4.0); HEMATOCRIT 43.3 % (39.0-51.0); HEMOGLOBIN 14.8 GM/DL (13.0-17.0); LYMPH % 17.6 % (9.0-44.0); LYMPHOCYTE # 2.2 TH/MM3 (1.0-4.8); MEAN CELL VOLUME 86.8 FL (80.0-100.0); MEAN CORPUSCULAR HEMOGLOBIN 29.7 PG (27.0-34.0); MEAN CORPUSCULAR HGB CONC 34.2 % (32.0-36.0); MEAN PLATELET VOLUME 7.2 FL (7.0-11.0); MONO % 4.9 % (0.0-8.0); MONOCYTE # 0.6 TH/MM3 (0-0.9); NEUT % 74.4 % (16.0-70.0); PLATELET COUNT 372 TH/MM3 (150-450); RED BLOOD COUNT 4.99 MIL/MM3 (4.50-5.90); RED CELL DISTRIBUTION WIDTH 14.9 % (11.6-17.2); WHITE BLOOD COUNT 12.6 TH/MM3 (4.0-11.0)
[2017-08-19 22:00] LABS: INTERNATIONAL NORMALIZED RATIO 1.1 RATIO; PROTHROMBIN TIME - PATIENT 11.1 SEC (9.8-11.6)
[2017-08-19 22:01] LABS: BACTERIA, URINE RARE /hpf; BILIRUBIN, URINE NEG (NEG); BLOOD, URINE LARGE (NEG); GLUCOSE,URINE NEG (NEG); KETONE, URINE NEG (NEG); MUCUS URINE FEW /lpf (OCC); NITRITE,URINE NEG (NEG); SQUAMOUS EPITHELIAL CELL URINE <1 /hpf (0-5); URINE COLOR YELLOW (YELLW/STRAW); URINE LEUKOCYTE ESTERASE MOD (NEG)
[2017-08-19 22:03] LABS: ALBUMIN 4.5 GM/DL (3.4-5.0); AST (GOT) 39 U/L (15-37); BICARBONATE 24.4 MEQ/L (21.0-32.0); BLOOD UREA NITROGEN 27 MG/DL (7-18); CALCIUM 9.3 MG/DL (8.5-10.1); CHLORIDE 99 MEQ/L (98-107); CREATININE 2.36 MG/DL (0.60-1.30); GLOMERULAR FILTRATION RATE 29 ML/MIN (>89); GLUCOSE,RANDOM 151 MG/DL (74-106); SODIUM (NA) 134 MEQ/L (136-145)
[2017-08-19 22:05] LABS: ALT (GPT) 57 U/L (12-78)
[2017-08-19 22:07] LABS: ALKALINE PHOSPHATASE 86 U/L (45-117); TOTAL BILIRUBIN ADULT 0.5 MG/DL (0.2-1.0); TOTAL PROTEIN 8.9 GM/DL (6.4-8.2)
[2017-08-20] MEDS ORDERED: GABA300C5 PO (01:13)
[2017-08-20] MEDS ORDERED: BUPR75TA PO (01:13)
--- NOTE | 2017-08-20 01:26 | PD ---
HPI Chief Complaint: Flank/Kidney Pain Time Seen by Provider: 00:57 Travel History International Travel<30 days: No Contact w/Intl Traveler<30days: No Traveled to known affect area: No History of Present Illness HPI The patient is a 52 year old female who presents to the [facility] emergency department with a history of bilateral flank pain that recurred between 5 and 6 PM on Friday. The patient reports that he has a history of kidney stones. The patient reports that he was recently admitted to the hospital in June related to a recurrence of stones and bilateral hydronephrosis. The patient was seen by Dr. Nathan the urologist in the hospital and underwent bilateral ureteral stent placements. The patient reports that the stents continue to be in place. He has not followed up with Dr. Nathan as an outpatient since his discharge. He reports that he no longer has any pain medication. His primary care physician is Dr. Alcantara. He has an appointment scheduled with Dr. Alcantara later this week. The patient reports having nausea without vomiting. He denies having any diarrhea. He last moved his bowels earlier today. Review of systems otherwise, the patient denies having any known recent fevers, cough, congestion, neck pain, chest pain , shortness of breath, or neurologic symptoms. The patient reports having intermittent dysuria with urinary frequency and urgency. [facility] Past Medical History Narrative Medical The patient's past medical history is significant for kidney stones, history of cervical spine fusion, history of depression, history of hyperlipidemia, migraine headaches, diabetes mellitus. Hx Anticoagulant Therapy: Yes (ASPIRIN) Autoimmune Disease: No Anxiety: Yes Depression: Yes Cardiovascular Problems: No High Cholesterol: Yes Diabetes: Yes Patient Takes Glucophage: No Diminished Hearing: No Endocrine: Yes Gastrointestinal Disorders: Yes Headaches: Yes Hypertension: Yes Kidney Stones: Yes Psychiatric: Yes Migraines: Yes Renal Failure: Yes Sleep Apnea: Yes Ulcer: No Tetanus Vaccination: Unknown Past Surgical History Narrative Surgical The patient's past surgical history is significant for tonsillectomy, cervical fusion, carpal tunnel release, appendectomy. Abdominal Surgery: Yes (appendix) Appendectomy: Yes (1987) Body Medical Devices: SPACERS IN CERVICAL AREA Genitourinary Surgery: Yes (lithotripsy) Joint Replacement: Yes (3 neck spacers replacement of vertebrae) Neurologic Surgery: No Oral Surgery: Yes (teeth removal) Tonsillectomy: Yes Other Surgery: Yes Social History Alcohol Use: Yes (OCC) Tobacco Use: Yes (1 PPD) Substance Use: No Allergies-Medications (Allergen,Severity, Reaction): Coded Allergies: No Known Allergies (Unverified Allergy, Unknown, 08/05/17) Reported Meds & Prescriptions Reported Meds & Active Scripts Active Hydrocodone-Acetaminophen 10-300 Tab 1 Tab PO Q6H PRN Cipro (Ciprofloxacin HCl) 250 Mg Tab 250 Mg PO BID Flomax (Tamsulosin HCl) 0.4 Mg Cap 0.4 Mg PO HS Reported Gabapentin 300 Mg Cap 300 Mg PO TID Bupropion HCl 75 Mg Tab 75 Mg PO BID Fluoxetine (Fluoxetine HCl) 20 Mg Capsule 20 Mg PO DAILY Fenofibrate 40 Mg Tab Unknown Dose PO DAILY Lovastatin 10 Mg Tab Unknown Dose PO DAILY [cholesterol pill] Sumatriptan (Sumatriptan Succinate) 50 Mg Tab 50 Mg PO ONCE PRN If a satisfactory response has not been obtained at 2 hours, a second dose may be administered Lisinopril 10 Mg Tab 10 Mg PO DAILY Glipizide 10 Mg Tab 10 Mg PO BIDAC Take 30 minutes before a meal Review of Systems Except as stated in HPI: all other systems reviewed are Neg General / Constitutional: No: Fever Eyes: No: Visual changes HENT: No: Headaches Cardiovascular: No: Chest Pain or Discomfort Respiratory: No: Shortness of Breath Gastrointestinal: Positive: Nausea, No: Vomiting, Diarrhea, Abdominal Pain Genitourinary: Positive: Urgency, Frequency, Dysuria, Flank Pain Musculoskeletal: No: Pain Skin: No Rash Neurologic: No: Weakness Psychiatric: No: Depression Endocrine: No: Polydipsia Hematologic/Lymphatic: No: Easy Bruising Physical Exam Narrative General: The patient is a well-developed well-nourished male in no acute distress. Head and Neck exam: Head is normocephalic atraumatic. Eyes: EOMI, pupils are equal round and reactive to light. Nose: Midline septum with pink mucous membranes Mouth: Dentition unremarkable. Moist mucus membranes. Posterior oropharynx is not erythematous. No tonsillar hypertrophy. Uvula midline. Airway patent. Neck: No palpable lymphadenopathy. No nuchal rigidity. No thyromegaly. Cardiovascular: Regular rate and rhythm without murmurs, gallops, or rubs. Lungs: Clear to auscultation bilaterally. No wheezes, rhonchi, or rales. Abdomen: Soft, without tenderness to palpation in all 4 quadrants of the abdomen. No guarding, rebound, or rigidity. N normal bowel sounds are audible. No tenderness on palpation of McBurney's point. Negative Angel sign. Extremities: No clubbing, cyanosis, or edema. 2+ pulses in all 4 extremities. Back: No spinous process tenderness to palpation. The patient reports having right- sided CVA tenderness on palpation worse than the left Neurologic Exam: Grossly nonfocal. Skin Exam: No rash noted. Intact skin that is warm and dry. Data Data Last Documented VS Vital Signs Date Time Temp Pulse Resp B/P (MAP) Pulse Ox O2 Delivery O2 Flow Rate FiO2 08/20/17 00:58 96 20 08/19/17 20:43 98.4 148/79 (102) 98 Orders Orders Complete Blood Count With Diff (08/19/17 20:48) Comprehensive Metabolic Panel (08/19/17 20:48) Lipase (08/19/17 20:48) Prothrombin Time / Inr (Pt) (08/19/17 20:48) Act Partial Throm Time (Ptt) (08/19/17 20:48) Urinalysis - C+S If Indicated (08/19/17 20:48) Urine Culture (08/19/17 20:51) Sodium Chlorid 0.9% 500 Ml Inj (Ns 500 M (08/20/17 01:30) Ondansetron Inj (Zofran Inj) (08/20/17 01:30) Morphine Inj (Morphine Inj) (08/20/17 02:15) Ondansetron Inj (Zofran Inj) (08/20/17 02:15) Abdomen, Kub Only (08/20/17 02:04) Ciprofloxacin (Cipro) (08/20/17 03:15) Labs Laboratory Tests Test 08/19/17 20:51 08/19/17 20:55 Urine Color YELLOW Urine Turbidity CLEAR Urine pH 6.0 Urine Specific [place] 1.011 Urine Protein 30 mg/dL Urine Glucose (UA) NEG mg/dL Urine Ketones NEG mg/dL Urine Occult Blood LARGE Urine Nitrite NEG Urine Bilirubin NEG Urine Urobilinogen LESS THAN 2.0 MG/DL Urine Leukocyte Esterase MOD Urine RBC /hpf Urine WBC 12 /hpf Urine Squamous Epithelial Cells <1 /hpf Urine Bacteria RARE /hpf Urine Mucus FEW /lpf Microscopic Urinalysis Comment CULTURE INDICATED White Blood Count 12.6 TH/MM3 Red Blood Count 4.99 MIL/MM3 Hemoglobin 14.8 GM/DL Hematocrit 43.3 % Mean Corpuscular Volume 86.8 FL Mean Corpuscular Hemoglobin 29.7 PG Mean Corpuscular Hemoglobin Concent 34.2 % Red Cell Distribution Width 14.9 % Platelet Count 372 TH/MM3 Mean Platelet Volume 7.2 FL Neutrophils (%) (Auto) 74.4 % Lymphocytes (%) (Auto) 17.6 % Monocytes (%) (Auto) 4.9 % Eosinophils (%) (Auto) 2.1 % Basophils (%) (Auto) 1.0 % Neutrophils # (Auto) 9.4 TH/MM3 Lymphocytes # (Auto) 2.2 TH/MM3 Monocytes # (Auto) 0.6 TH/MM3 Eosinophils # (Auto) 0.3 TH/MM3 Basophils # (Auto) 0.1 TH/MM3 CBC Comment DIFF FINAL Differential Comment Prothrombin Time 11.1 SEC Prothromb Time International Ratio 1.1 RATIO Activated Partial Thromboplast Time 28.1 SEC Blood Urea Nitrogen 27 MG/DL Creatinine 2.36 MG/DL Random Glucose 151 MG/DL Total Protein 8.9 GM/DL Albumin 4.5 GM/DL Calcium Level 9.3 MG/DL Alkaline Phosphatase 86 U/L Aspartate Amino Transf (AST/SGOT) 39 U/L Alanine Aminotransferase (ALT/SGPT) 57 U/L Total Bilirubin 0.5 MG/DL Sodium Level 134 MEQ/L Potassium Level 4.0 MEQ/L Chloride Level 99 MEQ/L Carbon Dioxide Level 24.4 MEQ/L Anion Gap 11 MEQ/L Estimat Glomerular Filtration Rate 29 ML/MIN Lipase 422 U/L [facility] Medical Decision Making Medical Screen Exam Complete: Yes Emergency Medical Condition: Yes Medical Record Reviewed: Yes Interpretation(s) Last Impressions Abdomen X-Ray 08/20/17 0204 Signed Impressions: Service Date/Time: Sunday, August 20, 2017 02:21 - CONCLUSION: 1. Unremarkable bowel gas pattern. 2. Bilateral ureteral stent catheters. Chapin Knight MD Differential Diagnosis Stent migration, versus recurrent infection, versus recurrent hydronephrosis Narrative Course During the course of the patient's emergency department visit, the patient's history, examination, and differential diagnosis were reviewed with the patient. The patient was placed on a hall monitor with oximetry and frequent blood pressure monitoring. The patient had IV access obtained and blood work sent for analysis. The patient was initially provided morphine 4 mg IV for pain, Zofran 4 mg IV for nausea, normal saline 500 mL IV. Cipro 250 p.o. 1. The patient's laboratory studies were reviewed and remarkable for a white count of 12.6 which is stable compared to previous values, hemoglobin 14.8, platelets 372 with 74.4 neutrophils, CMP is remarkable for sodium of 134, BUN 27, creatinine 2.36 which is stable compared to prior levels if not slightly improved, AST 39, total protein 8.9, urinalysis shows moderate leukocyte esterase 12 WBCs, rare bacteria. Culture indicated. Radiology studies were reviewed and remarkable for an x-ray, KUB shows an unremarkable bowel gas pattern, bilateral ureteral catheters in place. The patient's CT scan was not repeated at this time as he just had another CT scan that showed double-J ureteral stents in good place in good position on August 05 with resolved hydronephrosis. The patient is encouraged to follow-up with the urologist, Dr. Nathan as previously recommended. The patient will be discharged home with pain medication, ciprofloxacin. The patient is resting comfortably and feels better, is alert and in no distress. The patient's results and examination findings were discussed with the patient. The repeat examination is unremarkable and benign. The history, exam, diagnostic testing, and current condition do not suggest any significant pathology to warrant further testing, continued ED treatment, admission, or surgical evaluation at this point. The vital signs have been stable. The patient does not have uncontrollable pain, intractable vomiting, or other significant symptoms. The patient's condition is stable and appropriate for discharge. The patient will pursue further outpatient evaluation with a primary care physician or other designated or consulting physician as indicated in the discharge instructions. The patient expressed understanding and was agreeable with this plan. Diagnosis Primary Impression: Flank pain Additional Impression: Urinary tract infection Qualified Codes: N39.0 - Urinary tract infection, site not specified; R31.9 - Hematuria, unspecified Referrals: Gabriel Nathan DO 2 days Med/Other Pt SpecificInfo: Prescription(s) given Scripts Hydrocodone-Acetaminophen (Hydrocodone-Acetaminophen) 10-300 Tab 1 TAB PO Q6H Y for PAIN, #12 TAB 0 Refills Prov: Enriqueta Siddiqui MD 08/20/17 Ciprofloxacin (Cipro) 250 Mg Tab 250 MG PO BID for Infection, #14 TAB 0 Refills Prov: Enriqueta Siddiqui MD 08/20/17 Disposition: 01 DISCHARGE HOME Condition: Stable Enriqueta Siddiqui MD Aug 20, 2017 01:26
[2017-08-20] MEDS ORDERED: SODIUM CHLORID 0.9% 500 ML INJ 500 ML IV ONE (01:30)
[2017-08-20] MEDS ORDERED: ONDANSETRON HCL 4 MG/2 ML VIAL IV PUSH ONE ×2 (01:30→02:15)
[2017-08-20] MEDS ORDERED: MORPHINE SULFATE 4 MG/ML INJ IV PUSH ONE (02:15)
--- NOTE | 2017-08-20 02:44 | RADRPT ---
EXAM DATE/TIME: 08/20/2017 02:21 [place] COMPARISON: No previous studies available for comparison. INDICATIONS : Bilateral flank pain. MEDICAL HISTORY : Renal calculi. Cardiovascular disease. Diabetes mellitus type II. SURGICAL HISTORY : Appendectomy. Bilateral ureteral stents. ENCOUNTER: Initial ACUITY: 1 day PAIN SCORE: 6/10 LOCATION: Bilateral abdominal flank pain. FINDINGS: 2 AP spine views of the abdomen and pelvis performed. The abdominal bowel gas pattern is normal. No abnormal masses, calcifications, or organomegaly is seen. Bilateral ureteral stent catheters are pre sent with no renal or ureteral calculi identified. The osseous structures are unremarkable. CONCLUSION: 1. Unremarkable bowel gas pattern. 2. Bilateral ureteral stent catheters. Chapin Knight MD on August 20, 2017 at 2:42 Board Certified Radiologist. This report was verified electronically.
[2017-08-20] MEDS ORDERED: CIPROFLOXACIN 250 MG TAB PO ONE (03:15)
[2017-08-20] MEDS ORDERED: CIPR250T52 PO (03:16)
[2017-08-20] MEDS ORDERED: HYDR-2374 PO (03:16)
[2017-08-20] MEDS ORDERED: HYDR-3366 PO (11:45)
--- NOTE | 2017-08-20 11:45 | PD ---
Data Data Last Documented VS Vital Signs Date Time Temp Pulse Resp B/P (MAP) Pulse Ox O2 Delivery O2 Flow Rate FiO2 08/20/17 00:58 96 20 08/19/17 20:43 98.4 148/79 (102) 98 Orders Orders Complete Blood Count With Diff (08/19/17 20:48) Comprehensive Metabolic Panel (08/19/17 20:48) Lipase (08/19/17 20:48) Prothrombin Time / Inr (Pt) (08/19/17 20:48) Act Partial Throm Time (Ptt) (08/19/17 20:48) Urinalysis - C+S If Indicated (08/19/17 20:48) Urine Culture (08/19/17 20:51) Sodium Chlorid 0.9% 500 Ml Inj (Ns 500 M (08/20/17 01:30) Ondansetron Inj (Zofran Inj) (08/20/17 01:30) Morphine Inj (Morphine Inj) (08/20/17 02:15) Ondansetron Inj (Zofran Inj) (08/20/17 02:15) Abdomen, Kub Only (08/20/17 02:04) Ciprofloxacin (Cipro) (08/20/17 03:15) Labs Laboratory Tests Test 08/19/17 20:51 08/19/17 20:55 Urine Color YELLOW Urine Turbidity CLEAR Urine pH 6.0 Urine Specific [place] 1.011 Urine Protein 30 mg/dL Urine Glucose (UA) NEG mg/dL Urine Ketones NEG mg/dL Urine Occult Blood LARGE Urine Nitrite NEG Urine Bilirubin NEG Urine Urobilinogen LESS THAN 2.0 MG/DL Urine Leukocyte Esterase MOD Urine RBC /hpf Urine WBC 12 /hpf Urine Squamous Epithelial Cells <1 /hpf Urine Bacteria RARE /hpf Urine Mucus FEW /lpf Microscopic Urinalysis Comment CULTURE INDICATED White Blood Count 12.6 TH/MM3 Red Blood Count 4.99 MIL/MM3 Hemoglobin 14.8 GM/DL Hematocrit 43.3 % Mean Corpuscular Volume 86.8 FL Mean Corpuscular Hemoglobin 29.7 PG Mean Corpuscular Hemoglobin Concent 34.2 % Red Cell Distribution Width 14.9 % Platelet Count 372 TH/MM3 Mean Platelet Volume 7.2 FL Neutrophils (%) (Auto) 74.4 % Lymphocytes (%) (Auto) 17.6 % Monocytes (%) (Auto) 4.9 % Eosinophils (%) (Auto) 2.1 % Basophils (%) (Auto) 1.0 % Neutrophils # (Auto) 9.4 TH/MM3 Lymphocytes # (Auto) 2.2 TH/MM3 Monocytes # (Auto) 0.6 TH/MM3 Eosinophils # (Auto) 0.3 TH/MM3 Basophils # (Auto) 0.1 TH/MM3 CBC Comment DIFF FINAL Differential Comment Prothrombin Time 11.1 SEC Prothromb Time International Ratio 1.1 RATIO Activated Partial Thromboplast Time 28.1 SEC Blood Urea Nitrogen 27 MG/DL Creatinine 2.36 MG/DL Random Glucose 151 MG/DL Total Protein 8.9 GM/DL Albumin 4.5 GM/DL Calcium Level 9.3 MG/DL Alkaline Phosphatase 86 U/L Aspartate Amino Transf (AST/SGOT) 39 U/L Alanine Aminotransferase (ALT/SGPT) 57 U/L Total Bilirubin 0.5 MG/DL Sodium Level 134 MEQ/L Potassium Level 4.0 MEQ/L Chloride Level 99 MEQ/L Carbon Dioxide Level 24.4 MEQ/L Anion Gap 11 MEQ/L Estimat Glomerular Filtration Rate 29 ML/MIN Lipase 422 U/L MDM Supervised Visit with MARCUS: No Narrative Course Was informed by Jace Bagley ED paramedics that the patient has returned because he could not fill hydrocodone/acetaminophen 10/300 prescription issued last night by Dr. Siddiqui. The patient does not want to be seen today, a new prescription will be issued in the previous were shredded under his witness. Diagnosis Primary Impression: Flank pain Additional Impression: Urinary tract infection Referrals: Gabriel Nathan DO 2 days Patient Instructions: General Instructions Departure Forms: Tests/Procedures Scripts Hydrocodone-Acetaminophen ([place]) 10-325 Mg Tab 1 TAB PO Q6H Y for PAIN, #12 TAB 0 Refills Prov: Uriel Sahni MD 08/20/17 Ciprofloxacin (Cipro) 250 Mg Tab 250 MG PO BID for Infection, #14 TAB 0 Refills Prov: Enriqueta Siddiqui MD 08/20/17 Disposition: 01 DISCHARGE HOME Condition: Stable Uriel Sahni MD Aug 20, 2017 11:45
== END 2017-08-20 04:30 | disposition home or self-care (01) ==
LOC: NEPC 20:37
DX: N39.0 Urinary tract infection, site not specified (principal); R31.9 Hematuria, unspecified; E11.9 Type 2 diabetes mellitus without complications; E78.00 Pure hypercholesterolemia, unspecified; I10 Essential (primary) hypertension; F17.200 Nicotine dependence, unspecified, uncomplicated; Z79.84 Long term (current) use of oral hypoglycemic drugs
CPT/HCPCS: 74018; 80053; 81001; 83690; 85025; 85610; 85730; 87086; 96361; 96374; 96375; 96376; 99284; J2270; J2405; J7040

== ENCOUNTER → 2017-12-18 | Day surgery (SDC) | payer MEDICAID ==
[~2017-12-18] VITALS: Ht 193 cm; Wt 136.2 kg
[~2017-12-18] MED LIST changes: +ACETAMINOPHEN 1000 MG/100 ML 100 ML IV ONE; +AMPICILLIN 1 GM/NS 100 ML IV SCH; +BELLADONNA ALKALOIDS/OPIUM 60 MG SUPP RECTAL ONE; +BUPR75TA PO; -CEPH-460 PO; +CHLORHEXIDINE GLUCONATE 2 % 1 PACK (2 CLOTHS) TOPICAL PRN; +CIPR250T52 PO; +DEXAMETHASONE SOD PHOS 4 MG/ML VIAL IV ONE; +DO NOT ADM ANY ANTICOAGULANT DRUGS PRN; +FUROSEMIDE 40 MG/4 ML VIAL ONE; +GABA300C5 PO; +GENTAMICIN INJ 160 MG in SODIUM CHLORIDE 0.9% INJ 100 ML IV SCH; +HYDR-3366 PO; +INSULIN HUMAN REGULAR 1,000 UNITS/10 ML VIAL ONE; +INSULIN HUMAN REGULAR 1,000 UNITS/10 ML VIAL SQ ONE; +LACTATED RINGER'S 1000 ML INJ 1,000 ML IV ONE; +LACTATED RINGER'S 1000 ML IV PRN; +LEVEMIR SQ; +LIDOCAINE HCL 1% PF 5 ML SYRINGE OTHER ONE; +METOPROLOL TARTRATE 25 MG TAB PO PRN; +ONDANSETRON HCL 4 MG/2 ML VIAL IV PUSH ONE; -PERC5TAB12 PO; +PHENYLEPH/NS 1000 MCG/10 ML SYR IV ONE; +POVIDONE IODINE 5% (ANTISEPSIS KIT) 4 APPLICATIONS EACH NARE PRN; +PROPOFOL 200 MG/20 ML AMP IV ONE; +ROCURONIUM INJ 50 MG/5 ML SYRINGE IV PUSH ONE; +SODIUM CHLORID 0.9% 500 ML IV PRN; +SUGAMMADEX SODIUM 200 MG/2 ML VIAL IV PUSH ONE; +ePHEDrine/NS 25 MG/5 ML SYRINGE IV ONE; +fentaNYL CITRATE 250 MCG/5 ML AMP ONE
[2017-12-18 09:52] LABS: AUTOMATED NEUTROPHIL # 7.2 TH/MM3 (1.8-7.7); BASOPHIL # 0.1 TH/MM3 (0-0.2); BASOPHIL % 0.8 % (0.0-2.0); EOSINOPHIL # 0.4 TH/MM3 (0-0.4); EOSINOPHIL % 3.9 % (0.0-4.0); HEMATOCRIT 41.5 % (39.0-51.0); HEMOGLOBIN 13.9 GM/DL (13.0-17.0); LYMPH % 18.6 % (9.0-44.0); LYMPHOCYTE # 1.9 TH/MM3 (1.0-4.8); MEAN CELL VOLUME 85.7 FL (80.0-100.0); MEAN CORPUSCULAR HEMOGLOBIN 28.7 PG (27.0-34.0); MEAN CORPUSCULAR HGB CONC 33.5 % (32.0-36.0); MONOCYTE # 0.5 TH/MM3 (0-0.9); NEUT % 71.7 % (16.0-70.0); PLATELET COUNT 270 TH/MM3 (150-450); RED BLOOD COUNT 4.84 MIL/MM3 (4.50-5.90); RED CELL DISTRIBUTION WIDTH 15.2 % (11.6-17.2); WHITE BLOOD COUNT 10.1 TH/MM3 (4.0-11.0)
--- NOTE | 2017-12-18 13:15 | PD.OP ---
Operative Report Date of Surgery: Dec 18, 2017 Preoperative Diagnosis: Bilateral renal calculi with retained bilateral ureteral stents Postoperative Diagnosis: Bilateral renal calculi with retained encrusted bilateral ureteral stents Procedure: Cystoscopy with right ureteroscopy with laser lithotripsy and stone extraction with right retrograde pyelogram and right double-J stent exchange. Anesthesia: KAVEH Surgeon: Gabriel Nathan Accounting Bookkeeper(s): None Resident Surgeon: None Operation and Findings: 52-year-old male who was admitted back in July with acute renal failure and ureteral and renal calculi with obstruction and urinary retention. Patient had a CT scan in September which demonstrated bilateral renal calculi with the stents in good position. His creatinine had improved down to the 2 range. Initially was above 7. Decision made to bring the patient to the operating room to undergo bilateral ureteroscopy with laser lithotripsy and stone extraction and stent exchange. Risk and benefits were discussed preoperatively patient is willing to proceed. 22 [place] cystoscope was inserted in the bladder and the right ureteral stent was identified encrustation was noted to cover the entire stent. Using the alligator grasper was unable to pull the stent down and remove it. The rigid ureteroscope was then passed along the stent and using a 200 m laser fiber this stone along the stent was broken up. This took consider amount of time as the length of the stent was encrusted. The curl at the top of the stent was also encrusted and this was lasered and fragmented using the 200 m laser fiber setting of 10 and 1000. Over the course of time, I was able to remove the right ureteral stent. A 0.35 sensor wire was then passed through the cystoscope and up into the kidney. The ureteroscope was reinserted. Numerous stone fragments were up the ureter and I proceeded to laser those and remove them with a nitinol basket. Retrograde pyelogram was performed demonstrating filling of the right ureter without any filling defects or extravasation. A 6 [place] 24 cm stent was then passed over wire with a good curl in the kidney and the bladder. Attention was then directed to the left ureteral stent which also appeared to be encrusted. Attempt was made to use the alligator grasper to remove the left ureter stent but this was also unsuccessful. Due to the surgery lasting approximately 3 hours in order to remove the right stent alone decision was made then to complete the procedure and place a Rust catheter to straight drainage. He will need to be scheduled for left extracorporeal shockwave lithotripsy to break up the remaining encrusted dated stent on the left side followed by ureteroscopy at another point in time. The patient was awoken, extubated and transferred to the recovery room in stable condition. He tolerated the procedure well. He will follow-up in the office tomorrow to undergo a voiding trial. Gabriel Nathan DO Dec 18, 2017 13:15
[2017-12-18 15:51] VITALS: BP 121/78; PULSE 102; RESP 20; TEMP 102; O2SAT 96
--- NOTE | 2017-12-18 18:35 | EKG ---
Date Performed: 12/18/2017 Time Performed: 09:10:47 PTAGE: 52 years EKG: Sinus rhythm MINIMAL VOLTAGE CRITERIA FOR LVH, CONSIDER NORMAL VARIANT BORDERLINE ECG Since the PREVIOUS TRACING , no significant change noted PREVIOUS TRACIN10/06/2016 06.01 DOCTOR: Nancy Alamo Interpretating Date/Time 12/18/2017 18:33:16
== END | disposition home or self-care (01) ==
LOC: HSDC 08:42
PROVIDERS: ATTEND Urology
DX: N20.0 Calculus of kidney (principal); N20.1 Calculus of ureter; Z01.810 Encounter for preprocedural cardiovascular examination; E11.9 Type 2 diabetes mellitus without complications; Z79.4 Long term (current) use of insulin; Z79.899 Other long term (current) drug therapy
CPT/HCPCS: 00918; 52356; 74420; 76000; 82365; 82370; 82948; 85025; 88300; 93005; C1769; C2617; J0131; J1100; J1815; J1940; J2370; J2405; J3010; J7120